=== PATIENT | male | born 1955 | race Caucasian/White ===

== ENCOUNTER 2022-12-24 13:24 | Outpatient (OUT) | payer MEDICARE, OTHER, SELFPAY | END 2022-12-24 13:25 | disposition home or self-care (01) | LOC: PST 13:24 | PROVIDERS: PCP Family Medicine; Visit Provider Internal Medicine Cardiovascular Disease | DX: Z01.818 Encounter for other preprocedural examination (principal); I48.91 Unspecified atrial fibrillation ==

== ENCOUNTER 2022-12-28 11:21 | Day surgery (SDC) | payer MEDICARE, OTHER, SELFPAY ==
[2022-12-28 11:38] VITALS: BP 139/86; PULSE 63; RESP 20; TEMP 36.2; O2SAT 98
[2022-12-28] MEDS: AMOXICILLIN 500 MG CAPSULE 1000 MG PO (11:41)
[2022-12-28 12:49] VITALS: BP 149/80; PULSE 71; RESP 20; O2SAT 98
[2022-12-28 12:57] VITALS: BP 145/80; PULSE 66; O2SAT 98
--- NOTE | 2022-12-28 13:08 | W.PM.PROCNOT ---
Date of procedure: 12/28/22 Pre-op diagnosis: Afib Procedure: LOOP?IMPLANT PROCEDURE NOTE DATE OF PROCEDURE: 12/28/2022 PERFORMING PHYSICIAN: Dr. Octaviano Gutierrez INDICATIONS FOR PROCEDURE: 1. AF surveillance CONSENT: Patient LOCATION: EP Lab PROCEDURAL SEDATION: None FLUOROSCOPY TIME: 0min PREPARATION: Preoperative antibiotics was administered. PROCEDURES PERFORMED: 1.?LOOP?implant PROCEDURE NOTE: Patient was brought to the EP lab in the post absorptive state. A procedural pause was performed verifying the patient, the procedure. Sterile prep and drape were performed over the left precordium and anesthesia with 1% lidocaine was followed by a small incision was made in the 3rd intercostal space near the sternum on the left using the [employer] tool. The?loop?recorder was then injected subcutaneously and noted to have good sensing parameters. Technical details of the device as noted below. The skin was then closed with 3-0 absorbable monofilament suture and glue applied to hold the edges together. Tegaderm was applied to cover the wound. The patient appeared to tolerate the procedure well and was returned to the room in stable condition. No complications were immediately observed. LOOP?details: Device Model: M301 Lux-Dx Serial#: [id number]? Sensing is 0.14mV. IMPRESSION: Successful placement of?LOOP?implant with excellent sensing parameters. RECOMMENDATIONS: 1. Occlusive dressing to be changed after 7 days. 2. Do not wet the incision. Octaviano Gutierrez MD Cardiac Electrophysiology Anesthesia: Local Surgeon: Octaviano Gutierrez Estimated blood loss (mL): 5 Pathology: none sent Condition: stable Disposition: same day
== END 2022-12-28 13:15 | disposition home or self-care (01) ==
PROVIDERS: PCP Family Medicine; Visit Provider Internal Medicine Cardiovascular Disease
PROC: (CPT 33285; principal; 2022-12-28 12:00)
DX: I48.0 Paroxysmal atrial fibrillation (principal); Z79.82 Long term (current) use of aspirin; Z79.899 Other long term (current) drug therapy
CPT/HCPCS: 33285; C1764

== ENCOUNTER 2023-03-29 10:43 | Outpatient (OUT) | payer MEDICARE, OTHER, SELFPAY ==
--- NOTE | 2023-03-29 10:55 | XR_ITS ---
[address] [address] Patient Name: JOSE COLE MRN: [id number] date: 1955 Sex: M Assigned Patient Location: [facility] Current Patient Location: [facility] Accession/Order Number: [id number] Exam Date: 03/29/2023 11:00 Report Date: 03/29/2023 13:06 At the request of: DEON SPRINGER Procedure: XR lumbar spine 2-3V EXAM: XR lumbar spine 2-3V HISTORY: Low Back Derangement Syndrome M53.86 COMPARISON: None. TECHNIQUE: 2 views Findings/impression: Mild S-shaped scoliosis of the thoracolumbar spine. Maintained vertebral body heights. Mild endplate degenerative changes, disc disease and facet arthropathy of L4-S1. No acute fracture or significant subluxation. Scattered calcified atherosclerotic disease of the aorta. Electronically authenticated by: DORINA MEDINA Date: 03/29/2023 13:06
== END 2023-03-29 10:44 | disposition home or self-care (01) ==
PROVIDERS: PCP Family Medicine; Visit Provider Family Medicine
DX: M53.86 Other specified dorsopathies, lumbar region (principal)
CPT/HCPCS: 72100

== ENCOUNTER 2023-04-14 09:41 | Outpatient (OUT) | payer MEDICARE, OTHER, SELFPAY ==
[2023-04-14 10:04] LABS: Basophils Absolute Auto 0.1 10^3/uL (0.0-0.1); Basophils Percent Auto 1.4 % (0.2-2.0); Eosinophils Absolute Auto 0.2 10^3/uL (0.0-0.7); Eosinophils Percent Auto 4.2 % (0.9-7.0); Hematocrit 47.5 % (42.0-54.0); Hemoglobin 15.2 g/dL (14.0-18.0); Immature Granulocytes Abs Auto 0.02 10^3/uL (0.00-0.03); Immature Granulocytes Pct Auto 0.3 % (0.0-0.5); Lymphocytes Absolute Auto 1.3 10^3/uL (1.2-3.8); Mean Corpuscular Hemoglobin 29.8 pg (25.9-34.0); Mean Corpuscular Volume 93.1 fL (80.0-94.0); Mean Platelet Volume 10.2 fL (9.5-13.5); Monocytes Absolute Auto 0.5 10^3/uL (0.3-0.8); Monocytes Percent Auto 8.9 % (1.7-12.0); Neutrophils Absolute Auto 3.6 10^3/uL (1.4-6.5); Neutrophils Percent Auto 62.2 % (43.0-75.0); Platelet Count 219 10^3/uL (150-450); Red Cell Distribution Width 14.5 % (11.0-15.0); White Blood Count 5.8 10^3/uL (4.0-11.0)
[2023-04-14 10:42] LABS: Alanine Aminotransferase 63 U/L (16-63); Albumin Globulin Ratio 1.1; Albumin Level 3.9 g/dL (3.4-5.0); Alkaline Phosphatase 56 U/L (46-116); Anion Gap 11.3; Aspartate Amino Transferase 42 U/L (15-37); Bilirubin Total 1.3 mg/dL (0.2-1.0); Calcium 8.5 mg/dL (8.5-10.1); Carbon Dioxide 28.9 mmol/L (21.0-32.0); Chloride 104 mmol/L (98-107); Chol HDL Ratio 3.5; Cholesterol 135 mg/dL (<=200); Estimated GFR (African America >60 (>=60); Estimated GFR (Non-African Ame 58 (>=60); Globulin 3.4 g/dL; Glucose 106 mg/dL (74-106); HDL Cholesterol 39 mg/dL (40-60); Potassium 4.2 mmol/L (3.5-5.1); Sodium 140 mmol/L (136-145); Total Protein 7.3 g/dL (6.4-8.2); Triglycerides 95 mg/dL (<=150)
== END 2023-04-14 09:42 | disposition home or self-care (01) ==
LOC: LAB 09:42
PROVIDERS: PCP Family Medicine; Visit Provider Nurse Practitioner Family
DX: R06.09 Other forms of dyspnea (principal); E78.2 Mixed hyperlipidemia
CPT/HCPCS: 36415; 80053; 80061; 83880; 85025

== ENCOUNTER 2023-05-03 07:51 | Outpatient (OUT) | payer MEDICARE, OTHER, SELFPAY ==
--- NOTE | 2023-05-03 | PCN_ITS ---
CARDIAC STRESS TEST Requesting Physician: Procedure Date: 05/03/2023 This was a treadmill exercise stress test with myocardial perfusion imaging performed at the [facility] on 05/03/2023. Informed consent was obtained. The patient was attached to electrocardiographic monitoring. Baseline vital signs and ECG were obtained. The patient exercised on a treadmill for 5 minutes and 31 seconds, according to the Brant protocol and reached stage 2 and achieved 7 METS. Cardiolite was injected at peak exercise. Resting heart rate was 75 BPM and maximum heart rate was 130 BPM, representing 86% of maximal predicted heart rate. Resting blood pressure was 108/76 with maximum blood pressure of 160/98. Resting ECG showed evidence of normal sinus rhythm with non-specific T-wave abnormalities. ECG during exercise showed evidence of borderline ST segment depressions in leads 2, 3 and AVF, with T-wave inversions. There was evidence of occasional PVCs seen, and two runs of non-sustained ventricular tachycardia were seen, consisting of 4 beats each. Post exercise, the ECG showed evidence of sinus rhythm and was compatible to baseline. The patient developed dyspnea with exertion but no chest pain. SUMMARY OF FINDINGS: 1. Abnormal treadmill exercise stress test due to presence of non-sustained ventricular tachycardia with exercise. Borderline ischemic ECG changes were seen in leads 2, 3 and AVF. 2. 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 3. Myocardial perfusion images will be reported separately. MTDD
--- NOTE | 2023-05-03 07:45 | NM_ITS ---
Patient Name: JOSE COLE MR#: [id number] : 1955 Exam Date: 05/03/2023 Ordering Doctor: JOSE GUADALUPE MCCALL CNP RADIOLOGY REPORT PROCEDURE: NM PAUL PERF SPECT REST STR COMPARISON: None. INDICATIONS: CORONARY ARTERY DISEASE, DYSPNEA TECHNIQUE: Exam Description: Stress/Rest one day protocol gated SPECT Rest Imagin.6 mCi Tc-99m Cardiolite IV on 05/03/2023 Stress Imaging 30.5 mCi Tc-99m Cardiolite IV on 05/03/2023 Exercise Protocol: Brant Heart Rate (bpm): Rest: 75 Max: 130 PMHR: 86 Blood Pressure: Rest: 108/76 Max: 160/98 Exercise Time: Minutes: 5 Seconds: 31 Stage Reached: Stage: 2 Mets 7.0 Symptoms: Rest and peak stress ECG findings were abnormal and the exercise portion of the study was abnormal per attending physician Dr. Bright due toEKG changes. For more details please see separate cardiac stress test report. FINDINGS: QUALITY OF STUDY: Good. PERFUSION DEFECT: None. LOCATION: N/ABasal anterior. Basal anteroseptal. Mid-anterior. Mid-anteroseptal. Apical anterior. [place]. SIZE: Large (5 or more segments). SEVERITY: Moderate. TYPE: Reversible. WALL MOTION: Normal. LV SIZE: Normal. 76 mL. TID / TCD: None; 1.0 LVEF: Abnormal. Calculated EF 51%. SUMMARY: Myocardial perfusion imaging study has ABNORMAL findings. CONCLUSION: 1. Small fixed defect apical anterior and apex segments 2. Moderate sized area of moderately decreased uptake on stress images in the anterior and anterior septal wall, LAD distribution significant redistribution suggesting reversible ischemia 3. Abnormal exercise test secondary to EKG changes 4. Further evaluation is recommended Dictated by: Ever Neff MD on 05/04/2023 at 13:51 Approved by: Ever Neff MD on 05/04/2023 at 14:02
--- NOTE | 2023-05-03 09:13 | CA_ITS ---
Patient Name: JOSE COLE MR#: [id number] : 1955 Exam Date: 05/03/2023 Ordering Doctor: JOSE GUADALUPE MCCALL CNP ECHOCARDIOGRAM REPORT PROCEDURE: CA ECHO DOPPLER COMPLETE INDICATIONS: MARTINEZ, CAD COMPARISON: None. DESCRIPTION: COMPLETE ECHOCARDIOGRAM Real-time transthoracic echocardiography with 2D, M-mode, spectral and color flow Doppler performed. QUALITY: Technical quality was good. LEFT VENTRICLE: Normal chamber size. Normal left ventricular wall thickness. LV EF: Global left ventricular systolic function is low normal limits; visually estimated ejection fraction is 50 to 55%. Abnormal septal motion; may be related to underlying bundle branch block. DIASTOLIC: Normal diastolic function. ATRIAL SEPTUM: Inadequately seen. LEFT ATRIUM: Normal chamber size. RIGHT ATRIUM: Normal chamber size. RIGHT VENTRICLE: Normal chamber size. Normal systolic function. TRICUSPID VALVE: Normal mobility and thickness. No stenosis with trivial regurgitation. No evidence of pulmonary hypertension. RVSP 19mmHg MITRAL VALVE: Normal mobility and thickness. No evidence of mitral valve stenosis. There is no mitral annular calcification. Trivial mitral regurgitation. AORTIC VALVE: Normal trileaflet appearance. Thickened aortic valve. Normal leaflet mobility. No evidence of aortic valve stenosis. Trivial aortic regurgitation. AORTIC ROOT: Normal diameter and appearance. PULMONIC VALVE: Normal thickness and mobility. No stenosis. Trivial regurgitation. PERICARDIUM: Small pericardial effusion. IVC: Collapses with inspirations. Mild dilatation measuring 2.3cm PLEURA: CONCLUSION: 1. Global left ventricular systolic function is low normal limits; visually estimated ejection fraction is 50 to 55% 2. Normal right ventricular size and systolic function 3. Normal diastolic function 4. The left atrium is normal in size 5. No significant valvular abnormalities 6. A small circumferential pericardial effusion is seen Adult Echocardiography Procedure Report Left Ventricle LVEDD (3.7 - 5.6 cm): 4.34 cm LVESD (2.2 - 4.0 cm): 3.19 cm LVIVS thickness (0.6 - 1.2 cm): 0.93 cm LVPW thickness (0.5 - 1.0 cm): 1.08 cm e': 0.07 m/s E - e': 8.61 LVOT Max Gradient: 1.42 mm[Hg] LVOT Area (cm2): 0.60 m/s Peak Velocity (LVOT): 0.60 m/s Mean Velocity (LVOT): 0.41 m/s LVOT Diameter 2.02 cm Left Ventricular Ejection Fraction: 53.79 % Left Atrium LA Volume Index (2D A2C): 34.02 ml/m2 Left Atrium Systolic Dimension: 4.76 cm Mitral Valve MV E to A Ratio: 1.49 Mitral Valve A-Wave Peak Velocity: 0.41 m/s Mitral Valve E-Wave Peak Velocity: 0.62 m/s Right Ventricle RV Internal Diastolic Dimension: 3.89 cm Aorta AO Root Diam: 3.51 cm Ascending Ao Diam: 3.29 cm Aortic Valve AoV Area (Peak Rashaun): 1.91 cm2, 1.91 cm2 AoV Area (VTI): 2.01 cm2, 2.01 cm2 Peak Velocity(Antegrade Flow): 1.00 m/s Peak Gradient(Antegrade Flow): 3.97 mm[Hg] Mean Velocity(Antegrade Flow): 0.70 m/s Mean Gradient(Antegrade Flow): 2.25 mm[Hg] Velocity Time Integral: 20.61 cm Tricuspid Valve Peak Velocity (Regurgitant Flow): 1.67 m/s, 1.55 m/s Pulmonic Valve Mean Gradient: 2.53 mm[Hg], 0.96 mm[Hg] Mean Velocity: 0.78 m/s, 0.44 m/s Peak Velocity: 0.87 m/s Peak Gradient: 4.20 mm[Hg], 2.05 mm[Hg] Right Atrium Right Atrium Systolic Pressure: 57.48 ml, 57.48 ml Dictated by: Ivan Morton M.D. on 05/04/2023 at 13:48 Approved by: Ivan Morton M.D. on 05/04/2023 at 14:19
== END 2023-05-03 07:52 | disposition home or self-care (01) ==
LOC: NM 07:51
PROVIDERS: PCP Family Medicine; Visit Provider Nurse Practitioner Family
DX: I25.10 Atherosclerotic heart disease of native coronary artery without angina pectoris (principal); R06.09 Other forms of dyspnea
CPT/HCPCS: 78452; 93017; 93306; 93356; A9500

== ENCOUNTER 2023-06-13 15:41 | Outpatient (OUT) | payer MEDICARE, OTHER, SELFPAY ==
--- OUTSIDE RECORDS SUMMARY | 2023-06-13 15:44 | XMS_ITS | CCD ---
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 Name Role Phone JUSTIN MOHAMAD Admitting Unavailable HOY ., DR CHAVARRIA Primary Care Unavailable ALGHOTHANI, MOHAMAD Attending Unavailable ALGHOKATHERINEANI, MOHKENISHA Consulting Unavailable HOY ., DR CHAVARRIA Consulting Unavailable HOY ., DR CHAVARRIA Primary Care Unavailable HOY ., DR CHAVARRIA Admitting Unavailable HOY ., DR CHAVARRIA Attending Unavailable ALGHOTHANI, MOHAMASuni Admitting Unavailable Renée Garsia Consulting Unavailable HOY ., DR CHAVARRIA Primary Care Unavailable ALGHOTHANI, CLARISSAAMASuni Attending Unavailable ALGHOTHANI, MOHAMAD Consulting Unavailable HOY ., DR CHAVARRIA Primary Care Unavailable HOY ., DR CHAVARRIA Admitting Unavailable HOY ., DR CHAVARRIA Attending Unavailable HOY ., DR CHAVARRIA Consulting Unavailable ORONO, DR NARCISO Walker Consulting Unavailable HOY ., DR CHAVARRIA Primary Care Unavailable HOY ., DR CHAVARRIA Admitting Unavailable HOY ., DR CHAVARRIA Attending Unavailable HOY ., DR CHAVARRIA Consulting Unavailable MANUELA, MAURA Referring Unavailable JOSE GUADALUPE MCCALL Attending Unavailable JENNIFER TEJEDA Attending Unavailable OCTAVIANO GUTIERREZ Attending Unavailable ELDERUKABRISSA PATIÑO Attending Unavailable BRISSA KANG Referring Unavailable BRISSA KANG Admitting Unavailable ELDERUKABRISSA PATIÑO Attending Unavailable MAURA DAN Attending Unavailable Allergies Allergy Classification Reported Allergen(s) Allergy Type Date of Onset Reaction(s) Facility (1 source) Amino Acids Drug Allergy 6 [facility] Repository (1 source) Hmg-Coa Reductase Inhibitors (Statins); Translations: [[id number]-KCV-FTN REDUCTASE INHIBITORS] Propensity to adverse reactions to drug (disorder) 2 [facility] Repository Problems Active Problems Problem Classification Problem Date Documented Date Episodic/Chronic Cardiac dysrhythmias (4 sources) Unspecified atrial fibrillation; Translations: [Cardiac arrhythmia, unspecified] Onset: 04-24-2022 Chronic Complications of surgical procedures or medical care (3 sources) Complication of other artery following a procedure, not elsewhere classified, initial encounter; Translations: [Other postprocedural complications and disorders of the circulatory system, not elsewhere classified] Onset: 04-24-2022 Episodic Conduction disorders (2 sources) Other atrioventricular block; Translations: [Other atrioventricular block] Onset: 08-23-2022 Chronic Congestive heart failure; nonhypertensive (3 sources) Unspecified diastolic (congestive) heart failure; Translations: [Acute on chronic diastolic (congestive) heart failure] Onset: 04-07-2022 Chronic Coronary atherosclerosis and other heart disease (2 sources) Atherosclerotic heart disease of [place] coronary artery without angina pectoris; Translations: [Atherosclerotic heart disease of [place] coronary artery without angina pectoris] Onset: 05-11-2023 Chronic Diabetes mellitus without complication (4 sources) Type 2 diabetes mellitus without complications; Translations: [TYPE 2 DM WITHOUT COMPLICATIONS] Onset: 06-28-2022 Chronic Disorders of lipid metabolism (4 sources) Pure hypercholesterolemia, unspecified; Translations: [Hyperlipidemia, unspecified] Onset: 04-07-2022 Chronic Essential hypertension (2 sources) Essential (primary) hypertension; Translations: [Essential (primary) hypertension] Onset: 04-20-2022 Chronic Hypertension with complications and secondary hypertension (1 source) Hypertensive heart disease with heart failure; Translations: [HTN HEART DISEASE W/HEART FAIL] Onset: 04-07-2022 Chronic Other liver diseases (1 source) Abnormal levels of other serum enzymes; Translations: [ABNORMAL LEVELS OTHER SERUM ENZYMES] Onset: 07-02-2022 Episodic Other lower respiratory disease (3 sources) Other forms of dyspnea; Translations: [OTHER FORMS OF DYSPNEA] Onset: 04-17-2022 Episodic Other screening for suspected conditions (not mental disorders or infectious disease) (4 sources) Abnormal results of liver function studies; Translations: [Encounter for screening for malignant neoplasm of prostate] Onset: 04-07-2022 Episodic Past or Other Problems Problem Classification Problem Date Documented Da te Episodic/Chronic Coronary atherosclerosis and other heart disease (6 sources) Presence of aortocoronary bypass graft; Translations: [PRESENCE AORTOCORONARY BYPASS GRAFT] Onset: 06-03-2022 Episodic Diabetes mellitus without complication (1 source) Other abnormal glucose; Translations: [OTHER ABNORMAL GLUCOSE] Onset: 04-07-2022 Episodic Nonspecific chest pain (4 sources) Chest pain, unspecified; Translations: [CHEST PAIN UNSPECIFIED] Onset: 04-14-2022 Episodic Other nervous system disorders (4 sources) Other acute postprocedural pain; Translations: [OTHER ACUTE POSTPROCEDURAL PAIN] Onset: 05-19-2022 Episodic Other nutritional; endocrine; and metabolic disorders (1 source) Overweight; Translations: [OVERWEIGHT] Onset: 04-17-2022 Episodic Results Test Name Value Interpretation Reference Range Facility [facility] 05-13-2023 Chief Complaint Patient presents with Shortness of Breath Coronary Artery Disease Geo Todd is a 67 y.o. male here for follow-up. HPI PMHx: GERD, Pre-Diabetes, HTN, HLD, and CAD s/p coronary artery bypass grafting x 3, ROBERSON-LAD, SVG-OM, SVG-PDA with post op Afib. He has started having worsening SOB over the last couple of months. He feels SOB with minimal exertion. He hasn't noticed any leg swelling. He denies CP, orthopnea, PND, palpitations, dizziness/LH, syncope. His weight is up ~14#. He thinks it is related to food intake. His PCP recently started him on diclofenac and Zanaflex for his back pain. Patient Active Problem List Diagnosis Cardiovascular stress test abnormal Hypertension Mixed hyperlipidemia Other chest pain Triple vessel coronary artery disease Obesity GERD (gastroesophageal reflux disease) Respiratory insufficiency Postoperative atrial fibrillation (CMS/HCC) Adenomatous polyp of colon Anticoagulated on Coumadin Benign neoplasm of colon Bilateral arm weakness Cholecystolithiasis DVT (deep venous thrombosis) (CMS/HCC) Family history of malignant neoplasm of colon History of colonic polyps History of deep venous thrombosis Hyperplastic polyp of intestine Left foot drop Leg pain Occult blood in stools Medical History Past Medical History: Diagnosis Date Cardiovascular stress test abnormal 04/16/2022 GERD (gastroesophageal reflux disease) Hypertension Mixed hyperlipidemia 04/16/2022 Obesity 04/20/2022 Primary hypertension 04/16/2022 Sleep apnea Triple vessel coronary artery disease 04/20/2022 Family History Family History Problem Relation Name Age of Onset Heart attack Maternal Grandfather Heart attack Paternal Grandfather Social History Tobacco Use Smoking status: Never Smokeless tobacco: Never Substance Use Topics Alcohol use: Yes Comment: occasional Drug use: Not Currently Allergies Allergen Reactions Ckadera-Hgz-Zcn Reductase Inhibitors ROS Cardiovascular: Positive for dyspnea on exertion. Musculoskeletal: Positive for back pain and joint pain. Gastrointestinal: Positive for heartburn. Neurological: Positive for light-headedness. All other systems reviewed and are negative. OBJECTIVE Visit Vitals BP 142/80 (BP Location: Right arm, Patient Position: Sitting) Pulse 65 Ht 1.702 m (5' 7 ) Wt 111 kg (245 lb) SpO2 97% BMI 38.37 kg/m??? Smoking Status Never BSA 2.29 m??? Medications: Current Outpatient Medications: aspirin 81 mg chewable tablet, Chew 1 tablet (81 mg) in the morning., Disp: 90 tablet, Rfl: 3 omeprazole (PriLOSEC) [address] capsule, Take 40 mg by mouth in the morning., Disp: , Rfl: diclofenac (Voltaren) 75 mg EC tablet, Take 75 mg by mouth in the morning and at bedtime., Disp: , Rfl: ezetimibe (Zetia) 10 mg tablet, Take 1 tablet (10 mg) by mouth in the morning., Disp: 90 tablet, Rfl: 3 losartan (Cozaar) 50 mg tablet, Take 1 tablet (50 mg) by mouth in the morning., Disp: 90 tablet, Rfl: 3 metoprolol tartrate (Lopressor) 25 mg tablet, Take 0.5 tablets (12.5 mg) by mouth in the morning and at bedtime., Disp: 90 tablet, Rfl: 3 pravastatin (Pravachol) 20 mg tablet, Take 1 tablet (20 mg) by mouth at bedtime., Disp: 90 tablet, Rfl: 3 tiZANidine (Zanaflex) 4 mg tablet, Take 8 mg by mouth at bedtime., Disp: , Rfl: Physical Exam Constitutional: Appearance: Normal appearance. He is obese. HENT: Head: Normocephalic and atraumatic. Right Ear: External ear normal. Left Ear: External ear normal. Eyes: Extraocular Movements: Extraocular movements intact. Pupils: Pupils are equal, round, and reactive to light. Neck: Vascular: No carotid bruit. Cardiovascular: Rate and Rhythm: Normal rate and regular rhythm. Pulses: Normal pulses. Heart sounds: Normal heart sounds. Pulmonary: Effort: Pulmonary effort is normal. Breath sounds: Normal breath sounds. Abdominal: General: Bowel sounds are normal. Palpations: Abdomen is soft. Musculoskeletal: General: Normal range of motion. Cervical back: Neck supple. Right lower leg: Edema present. Left lower leg: Edema present. Comments: +1 BLE ankle edema Skin: General: Skin is warm and dry. Neurological: General: No focal deficit present. Mental Status: He is alert and oriented to person, place, and time. Psychiatric: Mood and Affect: Mood normal. Behavior: Behavior normal. Thought Content: Thought content normal. Judgment: Judgment normal. Labs: Admission on 07/30/2022, Discharged on 07/30/2022 Component Date Value Ref Range Status Sodium 07/30/2022 138 136 - 145 mmol/L Final Potassium 07/30/2022 4.5 3.5 - 5.1 mmol/L Final Chloride 07/30/2022 107 98 - 107 mmol/L Final CO2 07/30/2022 23 21 - 31 mmol/L Final BUN 07/30/2022 19 7 - 25 mg/dL Final Creatinine 07/30/2022 1.05 0.70 - 1.30 mg/dL Final Glucose 07/30/2022 88 70 - 100 mg/dL Final Calcium 07/30/2022 9.4 8.6 - 10.3 mg/ (more content not included)... Normal [facility] NURSNOTEon 05-13-2023 NURSNOTE RN educated pt on d/ c instructions. RN encouraged pt to voice any questions or concerns. Pt verbalizes no questions or concerns at this time. Pt was wheeled off of unit with all of belongings. Normal [facility] Orders Onlyon 05-11-2023 Orders Only [id number] Geo Todd 1955 M Date Provider Department Center 05/11/2023 Gerry8-ULISES ÁLVAREZ EFRAÍN Delgado [facility] Family History Problem Relation Age of Onset Heart attack Maternal Grandfather Heart attack Paternal Grandfather Family Status - Relation Status Age at Maternal Grandfather Paternal Grandfather [facility] 36on 05-05-2023 36 I called and spoke t o patient regarding his ECHO results. He has low normal EF at 50-55%, normal right sided pressures, no significant valvular abnormalities, small pericardial effusion. We had started him on lasix 20mg daily. He reports he has lost a few lbs and his breathing is feeling better and his ankle swelling is better. Will have him cut down his lasix to as needed. If he feels like he needs to start the lasix again, he is to let us know so we can obtain a follow-up BMP. He states understanding. [facility] Telephoneon 05-05-2023 Telephone [id number] Geo Todd 1955 [facility] Provider Department Okay 05/05/2023 JOSE GUADALUPE CARRERA Family History Problem Relation Age of Onset Heart attack Maternal Grandfather Heart attack Paternal Grandfather Family Status - Relation Status Age at Maternal Grandfather Paternal Grandfather [facility] 36on 04-20-2023 36 Please make sure he is also scheduled for his stress test and ECHO. Thanks! [facility] 36on 04-19-2023 36 Please let him know his labs showed mildly elevated BNP which could indicate he is carrying extra fluid. Recommend we start him on lasix 20mg daily. Please follow-up with him with a phone call in 2 weeks to see how his breathing, weight, and leg swelling are doing. If he is doing better we will plan for follow-up lab work. His cholesterol levels are pretty good. His LDL or bad cholesterol is at 77. Recommend heart healthy diet and routine exercise to try too get this below 70. Thanks, Shasha [facility] Telephoneon 04-19-2023 Telephone [id number] Geo Todd 1955 M Date Provider Department Okay 04/19/2023 JOSE GUADALUPE CARRERA Family History Problem Relation Age of Onset Heart attack Maternal Grandfather Heart attack Paternal Grandfather Family Status - Relation Status Age at Maternal Grandfather Paternal Grandfather [facility] 37on 04-12-2023 37 *Get stress test and ECHO done *Have labs done, fasting *Ask PCP to change pain medication to not be an NSAID [facility] Office Visiton 04-12-2023 Follow-up visit [id number] Geo Todd Markos 1955 M Date Provider Department Center 04/12/2023 Jo Ann-JOSE GUADALUPE MCCALL [facility] Family History Problem Relation Age of Onset Heart attack Maternal Grandfather Heart attack Paternal Grandfather Family Status - Relation Status Age at Maternal Grandfather Paternal Grandfather Level of Service:10698 MO OFFICE/OUTPATIENT ESTABLISHED MOD MDM 30-39 MIN Reason for Visit and Comments: Shortness of Breath [375028] Coronary Artery Disease [187] Normal [facility] Office Visiton 01-04-2023 Follow-up visit [id number] Geo Todd Markos 1955 M Date Provider Department Center 01/04/2023 Lacy-JENNIFER TEJEDA [facility] Family History Problem Relation Age of Onset Heart attack Maternal Grandfather Heart attack Paternal Grandfather Family Status - Relation Status Age at Maternal Grandfather Paternal Grandfather Level of Service:86408 MO OFFICE/OUTPATIENT ESTABLISHED MOD MDM 30-39 MIN Normal [facility] Orders Onlyon 10-21-2022 Orders Only [id number] Geo Todd Markos 1955 M Date Provider Department Center 10/21/2022 Ximena5NAOMI COWAN [facility] Family History Problem Relation Age of Onset Heart attack Maternal Grandfather Heart attack Paternal Grandfather Family Status - Relation Status Age at Maternal Grandfather Paternal Grandfather Normal [facility] Office Visiton 10-19-2022 Follow-up visit [id number] PeytonGeo Burrows 1955 M Date Provider Department Center 10/19/2022 Jad-OCTAVIANO GUTIERREZ [facility] Family History Problem Relation Age of Onset Heart attack Maternal Grandfather Heart attack Paternal Grandfather Family Status - Relation Status Age at Maternal Grandfather Paternal Grandfather Level of Service:73556 MO OFFICE/OUTPATIENT ESTABLISHED MOD MDM 30-39 MIN Normal [facility] Office Visiton 08-23-2022 Follow-up visit [id number] PeytonGeo Burrows 1955 M Date Provider Department Center 08/23/2022 BRISSA ESCOBAR [facility] Family History Problem Relation Age of Onset Heart attack Maternal Grandfather Heart attack Paternal Grandfather Family Status - Relation Status Age at Maternal Grandfather Paternal Grandfather Level of Service:96217 MO OFFICE/OUTPATIENT ESTABLISHED MOD MDM 30-39 MIN Normal [facility] Documentationon 08-02-2022 Documentation [id number] Geo Todd 1955 M Date Provider Department Center 08/02/2022 [facility]AV[facility]O [facility] [place] Family History Problem Relation Age of Onset Heart attack Maternal Grandfather Heart attack Paternal Grandfather Family Status - Relation Status Age at Maternal Grandfather Paternal Grandfather Normal [facility] BASIC METABOLIC PANELon 07-14 Anion gap [Moles/Vol] 13 mmol/L Normal - [facility] Comment on above: Performed By: #### L [id number] ####[facility] ([facility])[address] [place] [address] Calcium [Mass/Vol] 9.4 mg/dL Normal 8.6-10.3 [facility] Comment on above: Performed By: #### L [id number] ####[facility] ([facility])[address] [place] [address] Chloride [Moles/Vol] 107 mmol/L Normal 98-107 [facility] Comment on above: Performed By: #### L [id number] ####[facility] ([facility])[address] [place] [address] CO2 [Moles/Vol] 23 mmol/L Normal 21-31 [facility] Comment on above: Performed By: #### L [id number] ####[facility] ([facility])[address] [place] [address] Creatinine [Mass/Vol] 1.05 mg/dL Normal 0.70-1.30 [facility] Comment on above: Performed By: #### L [id number] ####[facility] ([facility])[address] [place] [address] GLOMERULAR FILTRATION RATE ML/MIN/1.73 SQ M.PREDICTED 76.8 mL/min/1.73m*2 Normal >60.0 [facility] Comment on above: Result Comment: The [facility]???s estimated glomerular filtration rate (eGFR) will no longer include consideration of race in its calculation. The National Kid[employer] Foundation???s eGFR Task Force developed new recommendations for the estimation of the glomerular filtration rate in the [place] They recommend immediate implementation of the new equation refit without the race variable in all laboratories because the calculation does not include race. In addition to not including race in the calculation and reporting, it included diversity in its development, and has acceptable performance characteristics and potential consequences that do not disproportionately affect any one group of individuals. Performed By: #### L [id number] ####[facility] ([facility])[address] [place] [address] Glucose [Mass/Vol] 88 mg/dL Normal 70-100 [facility] Comment on above: Performed By: #### L [id number] ####[facility] ([facility])[address] [place] [address] Potassium [Moles/Vol] 4.5 mmol/L Normal 3.5-5.1 [facility] Comment on above: Performed By: #### L [id number] ####[facility] ([facility])[address] [place] [address] Sodium [Moles/Vol] 138 mmol/L Normal 136-145 [facility] Comment on above: Performed By: #### L [id number] ####[facility] ([facility])[address] [place] [address] Urea nitrogen [Mass/Vol] 19 mg/dL Normal 7-25 [facility] Comment on above: Performed By: #### L [id number] ####[facility] ([facility])[address] [place] [address] UREA NITROGEN/CREATININE (MASS RATIO) IN SER/PLAS 18.1 Normal [facility] Comment on above: Performed By: #### L [id number] ####[facility] ([facility])[address] [place] [address] CBC WITH AUTO DIFFERENTIALon 07-30-2022 Basophils (Bld) [#/Vol] 0.08 10*3/uL Normal 0.00-0.20 [facility] Comment on above: Performed By: #### L [id number] ####[facility] ([facility])[address] [place] [address] Basophils/100 WBC (Bld) 1.1 % High 0.0-1.0 [facility] Comment on above: Performed By: #### L [id number] ####[facility] ([facility])[address] [place] [address] Eosinophils (Bld) [#/Vol] 0.22 10*3/uL Normal 0.00-0.50 [facility] Comment on above: Performed By: #### L [id number] ####[facility] ([facility])[address] [place] [address] Eosinophils/100 WBC (Bld) 2.9 % Normal 0.0-6.0 [facility] Comment on above: Performed By: #### L [id number] ####[facility] ([facility])[address] [place] [address] Erythrocyte distribution width (RBC) [Ratio] 13.2 % Normal 11.5-15.0 [facility] Comment on above: Performed By: #### L [id number] ####[facility] ([facility])[address] [place] [address] ERYTHROCYTE MEAN CORPUSCULAR HEMOGLOBIN CONCENTRATION (G/DL) BY AUTOMATED 33.3 g/dL Normal 32.0-35.0 [facility] Comment on above: Performed By: #### L [id number] ####[facility] ([facility])[address] [place] [address] Hematocrit (Bld) [Volume fraction] 46.5 % Normal 39.0-55.0 [facility] Comment on above: Performed By: #### L [id number] ####[facility] ([facility])[address] [place] [address] Hemoglobin (Bld) [Mass/Vol] 15.5 g/dL Normal 13.0-17.0 [facility] Comment on above: Performed By: #### L [id number] ####[facility] ([facility] [place] [address] Immature granulocytes (Bld) [#/Vol] 0.03 10*3/uL Normal 0.00-0.20 [facility] Comment on above: Performed By: #### L [id number] ####[facility] ([facility])[address] [place] [address] Immature granulocytes/100 WBC (Bld) 0.4 % Normal 0.0-1.0 [facility] Comment on above: Performed By: #### L [id number] ####[facility] ([facility])[address] [place] [address] Lymphocytes (Bld) [#/Vol] 2.31 10*3/uL Normal 1.20-4.00 [facility] Comment on above: Performed By: #### L [id number] ####[facility] ([facility])[address] [place] [address] Lymphocytes/100 WBC (Bld) 30.9 % Normal 20.0-45.0 [facility] Comment on above: Performed By: #### L [id number] ####[facility] ([facility])[address] [place] [address] MCH (RBC) [Entitic mass] 30.4 pg Normal 27.0-33.0 [facility] Comment on above: Performed By: #### L [id number] ####[facility] ([facility])[address] [place] [address] MCV (RBC) [Entitic vol] 91.2 fL Normal 82.0-98.0 [facility] Comment on above: Performed By: #### L [id number] ####[facility] ([facility])[address] [place] [address] Monocytes (Bld) [#/Vol] 0.61 10*3/uL Normal 0.10-1.00 [facility] Comment on above: Performed By: #### L [id number] ####[facility] ([facility])[address] [place] [address] Monocytes/100 WBC (Bld) 8.2 % Normal 5.0-12.0 [facility] Comment on above: Performed By: #### L [id number] ####[facility] ([facility])[address] [place] [address] Neutrophils (Bld) [#/Vol] 4.23 10*3/uL Normal 1.60-7.60 [facility] Comment on above: Performed By: #### L [id number] ####[facility] ([facility])[address] [place] [address] Neutrophils/100 WBC (Bld) 56.5 % Normal 40.0-72.0 [facility] Comment on above: Performed By: #### L [id number] ####[facility] ([facility])[address] [place] [address] NRBC (PER 100 WBCS) BY AUTOMATED COUNT 0.0 % Normal 0.0-0.0 [facility] Comment on above: Performed By: #### L [id number] ####[facility] ([facility])[address] [place] [address] PLATELETS (10*3/UL) IN BLOOD AUTOMATED COUNT 226 10*3/uL Normal 150-400 [facility] Comment on above: Performed By: #### L [id number] ####[facility] ([facility])[address] [place], [place] [address] RBC (Bld) [#/Vol] 5.10 10*6/uL Normal 4.20-5.70 [facility] Comment on above: Performed By: #### L [id number] ####[facility] ([facility])[address] [address] WBC (Bld) [#/Vol] 7.48 10*3/uL Normal 4.00-10.60 [facility] Comment on above: Performed By: #### L [id number] ####[facility] ([facility])[address] [place] [address] CONSULTon 07-30-2022 CONSULT [place] Electrophysiology Consult Note Reason for visit: Bradycardia with AV block on event monitor HPI: Geo Todd is a 67 y.o. year old with past medical history of GERD, Pre-Diabetes, HTN, HLD, and CAD s/p coronary artery bypass grafting x 3, ROBERSON-LAD, SVG-OM, SVG-PDA with post op Afib. Who was offered a 30d event monbitor for AF surveillence. This revealed episode of AV block of non conduced atrial beats which lasted for 2seconds. Pt denies any symptoms. Pt states he has been on the event monitor for 2.5 weeks. Pt states he developed A-fib after the surgery and is on DOAc. Pt has been at rehab prior to this this AM. No issues reported otherwise. Event monitor strip on 07/30/22 11am AV block noted. PMH: Past Medical History: Diagnosis Date Cardiovascular stress test abnormal 04/16/2022 GERD (gastroesophageal reflux disease) Hypertension Mixed hyperlipidemia 04/16/2022 Obesity 04/20/2022 Primary hypertension 04/16/2022 Sleep apnea Triple vessel coronary artery disease 04/20/2022 PSH: Past Surgical History: Procedure Laterality Date APPENDECTOMY CHOLECYSTECTOMY LAUREN SH: Social Determinants of Health Tobacco Use: Low Risk Smoking Tobacco Use: Never Smokeless Tobacco Use: Never Passive Exposure: Not on file Alcohol Use: Not on file Financial Resource Strain: Not on file Food Insecurity: Not on file Transportation Needs: Not on file Physical Activity: Not on file Stress: Not on file Social Connections: Not on file Intimate Partner Violence: Not on file Depression: Not on file Housing Stability: Not on file Allergies: Allergies Allergen Reactions Ibvhymg-Bpf-Wrn Reductase Inhibitors Weight: @WEIGHT@ Visit Vitals BP 124/87 Pulse 64 Temp 36.7 ???C (98 ???F) (Oral) Resp 13 Ht 1.702 m (5' 7 ) Wt 101 kg (222 lb) SpO2 98% BMI 34.77 kg/m??? Smoking Status Never BSA 2.19 m??? Meds: No current facility-administered medications on file prior to encounter. Current Outpatient Medications on File Prior to Encounter Medication Sig Dispense Refill apixaban (Eliquis) 5 mg tablet Take 1 tablet (5 mg) by mouth in the morning and at bedtime for 198 doses. 60 tablet 1 aspirin 81 mg EC tablet Take 162 mg by mouth in the morning. ezetimibe (Zetia) 10 mg tablet Take 1 tablet (10 mg) by mouth in the morning. 90 tablet 3 losartan (Cozaar) 25 mg tablet Take 1 tablet (25 mg) by mouth in the morning. 30 tablet 1 metoprolol tartrate (Lopressor) 25 mg tablet Take 0.5 tablets (12.5 mg) by mouth in the morning and at bedtime. 90 tablet 3 omeprazole (PriLOSEC) [address] capsule Take 40 mg by mouth in the morning. pravastatin (Pravachol) 20 mg tablet Take 1 tablet (20 mg) by mouth at bedtime. 90 tablet 3 ROS: Cardio Basic Cardiovascular Symptoms: no lightheadedness, no leg edema, no syncope, no orthopnea, no PND, no claudication, Constitutional Constitutional: no fever, no night sweats, no significant weight gain, no significant weight loss, no exercise intolerance Eyes Eyes: no dry eyes, no irritation, no vision change ENMT Ears: no difficulty hearing, no ear pain Nose: no frequent nosebleeds, Mouth/Throat: no sore throat, no bleeding gums, no snoring, no dry mouth, no mouth ulcers, no oral abnormalities, no teeth problems Respiratory Respiratory: no cough, no wheezing, no coughing up blood, no sleep apnea Musculoskeletal Musculoskeletal: no muscle aches, no muscle weakness, joint pain+, no back pain, no swelling in the extremities Integumentary Skin no rash, no ulcer, no varicosities, no discoloration, no pruritus Neurologic Neurologic: no loss of consciousness, no weakness, no numbness, no seizures, no dizziness, no headaches Psychiatric Psych: no depression, feeling safe in relationship, no alcohol abuse, Hematologic/Lymphatic Hematologic/Lymphatic no swollen glands, no bruising Physical Exam: Constitutional General Appearance: well-nourished, well-developed, appears stated age Level of Distress: comfortable Psychiatric Mental Status: alert, normal affect Orientation: oriented to time, place, and person Insight: good judgement Eyes Lids and Conjunctivae: non-injected, no xanthelasma ENMT Ears: no lesions on external ear Nose: no lesions on external nose Oropharynx: no cyanosis, no pallor Neck Neck: supple, trachea midline Carotid Arteries: bilateral normal upstroke, no bruits Jugular Veins: normal jugular venous pressure Thyroid: not enlarged Lungs Respiratory Effort: unlabored Chest Exam: normal curvature, no thoracic deformity Auscultation: clear, no wheezing, no rales, no rhonchi Cardiovascular Rate And Rhythm: regular, surgical scar. Heart Sounds: normal S1, normal s2, no gallop Systolic Murmur: not heard Diastolic Murmur: not heard Extremities: no cyanosis, no edema, no peripheral signs of emboli Peripheral Pulses Radial Pulse: normal Abdomen Inspection and Palpation (more content not included)... Normal [facility] EDNURSon 07-30-2022 EDNURS Pt arrives with to triage, pt states that today they received a call from their cardiology office to come be seen in the ED for a third degree heart blood. Pt is currently wearing a halter monitor. Pt states that in April 2022 he had a triple bypass done. Pt is still on eliquis. Pt denies CP, SOB, dizziness. Normal [facility] EDPROVon 07-30-2022 EDPROV HPI Chief Complaint Patient presents with ??? Irregular Heart Beat Initial evaluation completed by Dr. Dan at 17:21. Geo Todd is a 67 y.o. male that presents to the ED with a chief complaint of irregular heart beat. Pt states he wears a Halter monitor and his cardiology office called to tell him he was in 3rd degree heart block. Pt denies any symptoms. Pt states he has been on the Halter monitor for 2.5 weeks. Pt states he has a history of triple vessel bypass surgery in April and takes Eliquis. Pt states he developed A-fib after the surgery. Pt denies currently taking any medications for A-fib or history of an ablation. 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 History provided by: Patient Chandan Coma Scale Score: 15 Patient History Past Medical History: Diagnosis Date ??? Cardiovascular stress test abnormal 04/16/2022 ??? GERD (gastroesophageal reflux disease) ??? Hypertension ??? Mixed hyperlipidemia 04/16/2022 ??? Obesity 04/20/2022 ??? Primary hypertension 04/16/2022 ??? Sleep apnea ??? 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 APPENDECTOMY ??? CHOLECYSTECTOMY ??? LASIK Family History Problem Relation Name Age of Onset ??? Heart attack Maternal Grandfather ??? Heart attack Paternal Grandfather Social History Tobacco Use ??? Smoking status: Never ??? Smokeless tobacco: Never Substance Use Topics ??? Alcohol use: Yes Comment: occasional ??? Drug use: Not Currently Review of Systems Review of Systems All other systems reviewed and are negative. Physical Exam ED Triage Vitals [07/30/22 1650] Temp Heart Rate Resp BP 36.7 ???C (98 ???F) 66 16 (!) 134/115 SpO2 Temp Source Heart Rate Source Patient Position 98 % Oral -- -- BP Location FiO2 (%) -- -- Physical Exam Constitutional: General: He is not in acute distress. Appearance: He is not ill-appearing. HENT: Head: Normocephalic and atraumatic. Eyes: Conjunctiva/sclera: Conjunctivae normal. Pupils: Pupils are equal, round, and reactive to light. Cardiovascular: Rate and Rhythm: Normal rate and regular rhythm. Pulmonary: Effort: Pulmonary effort is normal. Breath sounds: Normal breath sounds. Musculoskeletal: General: Normal range of motion. Cervical back: Neck supple. Skin: General: Skin is warm and dry. Neurological: Mental Status: He is alert and oriented to person, place, and time. Procedures ED Course & MDM ED Course as of 07/30/221907Jul 30, 20221904 Dr. Nathan With electrophysiology came down to the emergency department and evaluated the patient. He stated that patient did not actually have third-degree heart block and can be discharged. The patient will be discharged and was instructed to follow up with his cement truck loader at the first available appointment or return to the emergency department if there are any increase in symptoms or any other concerns. Patient stated they understood and agreed with the plan. [TS] ED Course User Index [TS] Maura Dan, Diagnoses as of 07/30/221907 Cardiac arrhythmia, unspecified cardiac arrhythmia type Medical Decision Making I, Marina lopez, documented on behalf of Dr. Dan. Chief complaint: Irregular heat beat. Differential Diagnosis includes but is not limited to 3rd degree block, atrial fibrillation, and normal sinus rhythm. Plan of Care: Consult cardiology. Magnesium, Troponin, CBC, and BMP. 17:28 Dr. Dan spoke to damage inside adjuster. cardio clinician states they will discuss pt's case with Dr. Kimble. 18:[address] Gutierrez and plan is for pt to be discharged. 19:00 Plan is to discharge pt. Dr. Dan discussed return precautions with pt. Attestation: Provider Statement ERLIN: Provider Statement 2nd Scribe. By electronically signing this emergency patient record, the Emergency Physician/ENTERPRISE ACCOUNT EXECUTIVE/PA-C attests that all entries made into the electronic medical record by the scribe prior to the Physician/ENTERPRISE ACCOUNT EXECUTIVE/PA-C signature reflect an accurate accounting of the evaluation and care rendered by that Emergency Physician/ENTERPRISE ACCOUNT EXECUTIVE/PA-C. The Emergency Physician/ENTERPRISE ACCOUNT EXECUTIVE/PA-C assumes full responsibility for those entries. The Emergency Physician/ENTERPRISE ACCOUNT EXECUTIVE/PA-C also attests that any patient testing or treatment that was instituted by nursing staff. Maura Dan, DO 08/01/22 1515 Normal [facility] MAGNESIUMon 07-30-2022 Magnesium [Mass/Vol] 2.1 mg/dL Normal 1.9-2.7 [facility] Comment on above: Performed By: #### L [id number] #### [facility] ([facility]) [address] [place] [address] TROPONIN Ion 07-30-2022 Troponin I.cardiac [Mass/Vol] 0.01 ng/mL Normal 0.00-0.04 [facility] Comment on above: Performed By: #### L [id number] ####[facility] ([facility])[address] [place] [address] GLYCOHEMOGLOBIN A1Con 2022 ADA RECOMMENDATION SEE BELOW Normal [facility] Comment on above: Result Comment: ADA RECOMMENDED LIMIT 4.0 - 6.0 ADA THERAPEUTIC TARGET < 7.0 ACTION SUGGESTED > 7.0 Performed By: #### A 1C #### [facility] [address] [place] [address] Dr. Tiny Miranda Glucose [Mass/Vol] 123 mg/dL Normal [facility] Comment on above: Performed By: #### A 1C #### [facility] [address] [address] [address] Tiny Miranda HbA1c (Bld) [Mass fraction] 5.9 % Normal 4.5-6.2 [facility] Comment on above: Performed By: #### A 1C #### [facility] [address] [address] [address] Tiny Miranda LIPID PROFILEon 06-28-2022 CHOL-HDL RATIO NORM SEE BELOW Normal [facility] Comment on above: Result Comment: 3.3 - 4.4 LOW RISK 4.4 - 7.1 AVERAGE RISK 7.1 - 11.0 MODERATE RISK >11.0 HIGH RISK Performed By: #### L MALACHI, LIPID #### [facility] [address] [address] [address] Tiny Miranda Cholesterol [Mass/Vol] 132 mg/dL Normal <=200 [facility] Comment on above: Performed By: #### L MALACHI, LIPID #### [facility] [address] [address] [address] Tiny Miranda Cholesterol in HDL [Mass/Vol] 39 mg/dL Critically low 40-60 [facility] Comment on above: Performed By: #### L MALACHI, LIPID #### [facility] [address] [address] [address] Tiny Miranda Cholesterol in LDL [Mass/Vol] 70.2 mg/dL Normal [facility] Comment on above: Performed By: #### L MALACHI, LIPID #### [facility] [address] [address] [address] Tiny Miranda Cholesterol.total/Ch olesterol in HDL [Mass ratio] 3.4 {ratio} Normal [facility] Comment on above: Performed By: #### L MALACHI, LIPID #### [facility] [address] [address] [address] Tiny Miranda HDL NORMAL > or = 60 mg/dl - LO W CARDIOVASCULAR RISK <40 mg/dl - HIGH CARDIOVASCULAR RISK Normal [facility] Comment on above: Performed By: #### L MALACHI, LIPID #### [facility] [address] [place] [address] Dr. Tiny Miranda LDL CALC NORMAL SEE BELOW Normal [facility] Comment on above: Result Comment: <100 mg/dl OPTIMAL 100 - 129 mg/dl NEAR OR ABOVE OPTIMAL 130 - 159 mg/dl BORDERLINE HIGH 160 - 189 mg/dl HIGH >190 mg/dl VERY HIGH Performed By: #### L IVROQUE, LIPID #### [facility] [address] [place] [address] Dr. Tiny Miranda Triglyceride [Mass/Vol] 114 mg/dL Normal <=150 [facility] Comment on above: Performed By: #### L IVROQUE, LIPID #### [facility] [address] [place] [address] Dr. Tiny Miranda VLDL CALC 22.8 mg/dL Normal [facility] Comment on above: Performed By: #### L MALACHI LIPID #### [facility] [address] [place] [address] Dr. Tiny Miranda LIVER PROFILEon 06-28-2022 Albumin [Mass/Vol] 3.6 g/dL Normal 3.4-5.0 [facility] Comment on above: Performed By: #### L MALACHI LIPID #### [facility] [address] [place] [address] Dr. Tiny Miranda Albumin/Globulin [Mass ratio] 1.0 {ratio} Normal [facility] Comment on above: Performed By: #### L IVROQUE, LIPID #### [facility] [address] [place] [address] Dr. Tiny Miranda ALP [Catalytic activity/Vol] 48 U/L Normal 46-116 [facility] Comment on above: Performed By: #### L IVROQUE, LIPID #### [facility] [address] [place] [address] Dr. Tiny Miranda ALT [Catalytic activity/Vol] 39 U/L Normal 16-63 [facility] Comment on above: Performed By: #### L IVROQUE, LIPID #### [facility] [address] [place] [address] Dr. Tiny Miranda AST [Catalytic activity/Vol] 26 U/L Normal 15-37 [facility] Comment on above: Performed By: #### L MALACHI LIPID #### [facility] [address] [address] [address] Tiny Miranda BILI, CONJUGATED 0.1 mg/dL Normal 0.0-0.2 [facility] Comment on above: Performed By: #### L MALACHI LIPID #### [facility] [address] [address] [address] Tiny Miranda Bilirubin [Mass/Vol] 0.6 mg/dL Normal 0.2-1.0 [facility] Comment on above: Performed By: #### L MALACHI LIPID #### [facility] [address] [address] [address] Tiny Miranda Globulin (S) [Mass/Vol] 3.6 g/dL Normal [facility] Comment on above: Performed By: #### L MALACHI LIPID #### [facility] [address] [address] [address] Tiny Miranda Protein [Mass/Vol] 7.2 g/dL Normal 6.4-8.[address] [facility] Comment on above: Performed By: #### L MALACHI LIPID #### [facility] [address] [place] [address] Dr. Tiny Miranda PROF CHEM 8 (BAS METB)on Anion gap [Moles/Vol] 12.4 mmol/L Normal [facility] Comment on above: Performed By: #### B MP ####[facility] [address] [address]Dr. Tiny Miranda Calcium [Mass/Vol] 9.2 mg/dL Normal 8.5-10.[address] [facility] Comment on above: Performed By: #### B MP ####[facility] [address] [address]Dr. Tiny Miranda Chloride [Moles/Vol] 104 mmol/L Normal 98-107 [facility] Comment on above: Performed By: #### B MP ####[facility] [address] [address]Dr. Tiny Miranda CO2 [Moles/Vol] 30.5 mmol/L Normal 21.0-32.0 [facility] Comment on above: Performed By: #### B MP ####[facility] [address] [address]Dr. Tiny Ruben Creatinine [Mass/Vol] 1.12 mg/dL Normal 0.70-1.30 [facility] Comment on above: Performed By: #### B MP ####[facility] [address] [address]Dr. Tiny Ruben EGFR-AF CHADIAN >60 Normal >=60 [facility] Comment on above: Performed By: #### B MP ####[facility] [address] [place], [place] [address]Dr. Tiny Miranda EGFR-NON AF CHADIAN >60 Normal >=60 [facility] Comment on above: Performed By: #### B MP ####[facility] [address] [place], [place] [address]Dr. Josielisa Miranda Glucose [Mass/Vol] 121 mg/dL Critically high 74-106 [facility] Comment on above: Performed By: #### B MP ####[facility] [address] [place], [place] [address]Dr. Tiny Miranda Potassium [Moles/Vol] 4.9 mmol/L Normal 3.5-5.1 [facility] Comment on above: Performed By: #### B MP ####[facility] [address] [place], [place] [address]Dr. Tiny Ruben Sodium [Moles/Vol] 142 mmol/L Normal 136-145 [facility] Comment on above: Performed By: #### B MP ####[facility] [address] [place], [place] [address]Dr. Josielisa Ruben Urea nitrogen [Mass/Vol] 14.0 mg/dL Normal 7.0-18.0 [facility] Comment on above: Performed By: #### B MP ####[facility] [address] [place], [place] [address]DrColeman Miranda Urea nitrogen/Creatinine [Mass ratio] 12.5 mg/mg Normal [facility] Comment on above: Performed By: #### B ####[facility] [address] [place], [place] [address]QuColeman Miranda US MARY DOP LEG LTon 05-19-19 23 US MARY DOP LEG LT EXAMINATION: US MARY DOP LEG LT HISTORY: Acute postoperative pain ; left leg pain and swelling COMPARISON: No relevant comparison available. FINDINGS: REGION: Left lower extremity THROMBI: None. COMPRESSIBILITY: Normal compressibility. FLOW: Normal waveform and antegrade flow between 5 and 20 cm/s. OTHER: None. IMPRESSION: 1. No deep vein thrombus within the left lower extremity. Electronically authenticated by: RENÉE GARSIA Date: 2022-05-19 16:48 Normal [facility] NM STRESS/REST MULTIon 04-14 NM STRESS/REST MULTI Patient: GEO TODD Exam Date: 04/14/2022 : 1955 Gender:M Ordering : DR DEON MIR . Admission #: [id number] Family : Order #: [id number] CLICK HERE TO VIEW EXAM RADIOLOGY REPORT PROCEDURE: RADIONUCLIDE IMAGING STRESS/REST MULTI COMPARISON: None. INDICATIONS: Chest pain TECHNIQUE: Exam Description: Stress/Rest one day protocol gated SPECT Rest Imagin.7 mCi Tc-99m Cardiolite IV on 04/14/2022 Stress Imaging 30.0 mCi Tc-99m Cardiolite IV on 04/14/2022 Exercise Protocol: Brant Heart Rate (bpm): Rest: 80 Max: 131 PMHR: 86 Blood Pressure: Rest: 158/98 Max: 192/100 Exercise Time: Minutes: 4 Seconds: 40 Stage Reached: Stage: 2 Mets 6.8 Symptoms: Rest and peak stress ECG findings were abnormal and the exercise portion of the study was abnormal per attending physician Dr. Collins due to EKG changes, ST segment elevation in lateral leads and ST segment down-sloping in inferior leads. For more details please see separate cardiac stress test report. FINDINGS: QUALITY OF STUDY: Good. PERFUSION DEFECT: LOCATION: Basal inferior. Basal inferolateral. Mid-inferior. Apical inferior. SIZE: Medium (3-4 segments). SEVERITY: Moderate. TYPE: Reversible. WALL MOTION: Normal. LV SIZE: Normal. 110 mL. TID / TCD: None; 0.9 LVEF: Normal. Calculated EF 58%. SUMMARY: Myocardial perfusion imaging study has ABNORMAL findings. CONCLUSION: 1. Area of suspected reversible ischemia inferior wall RCA distribution 2. Abnormal exercise test secondary to EKG changes Dictated by: Narciso Neff MD on 04/15/2022 at 07:49 Approved by: Narciso Neff MD on 04/15/2022 at 07:51 Normal [facility] HEPATITIS PANEL, ACUTEon HBsAg Screen Negative Normal Negative [facility] Comment on above: Performed By: #### H EPACUT ####[facility] [address] [address]Dr. Tiny Miranda HCV AB <0.1 Normal 0.0-0.9 [facility] Comment on above: Performed By: #### H EPACUT ####[facility] [address] [address]Dr. Tiny Miranda Hep A Ab, IgM Negative Normal Negative [facility] Comment on above: Performed By: #### H EPACUT ####[facility] [address] [address]Dr. Tiny Miranda Hep B Core Ab, IgM Negative Normal Negative [facility] Comment on above: Performed By: #### H EPACUT ####[facility] [address] [address]Dr. Tiny Miranda Interpretation: Comment Normal [facility] Comment on above: Result Comment: Nega tive Not infected with HCV, unless recent infection is suspected or other evidence exists to indicate HCV infection. Performed By: #### H EPACUT ####[facility] [address] [address]Dr. Tiny Miranda INSULINon 04-06-2022 Insulin 51.4 uIU/mL Critically high 2.6-24.9 [facility] Comment on above: Performed By: #### I NSULIN ####[facility] [address] [place], [place] [id number]. Tiny Miranda BNPon 04-05-2022 Natriuretic peptide B (Bld) [Mass/Vol] 20.0 pg/mL Normal <=900.0 [facility] Comment on above: Performed By: #### C MP, BNP, LIPID #### [facility] [address] [place] [address] Dr. Tiny Miranda CBC AUTO DIFFon 04-05-2022 BASO # 0.1 103/ul Normal 0.0-0.1 [facility] Comment on above: Performed By: #### C BC #### [facility] [address] [place] [address] Dr. Tiny Miranda Basophils/100 WBC (Bld) 1.8 % Normal 0.2-2.0 [facility] Comment on above: Performed By: #### C BC #### [facility] [address] [place] [address] Dr. Tiny Miranda EO # 0.2 103/ul Normal 0.0-0.7 [facility] Comment on above: Performed By: #### C BC #### [facility] [address] [place] [address] Dr. Tiny Miranda Eosinophils/100 WBC (Bld) 3.9 % Normal 0.9-7.0 [facility] Comment on above: Performed By: #### C BC #### [facility] [address] [place] [address] Dr. Tiny Miranda Erythrocyte distribution width (RBC) [Ratio] 12.9 % Normal 11.0-15.0 [facility] Comment on above: Performed By: #### C BC #### [facility] [address] [place] [address] Dr. Tiny Miranda Hematocrit (Bld) [Volume fraction] 47.8 % Normal 42.0-54.0 [facility] Comment on above: Performed By: #### C BC #### [facility] [address] [place] [address] Dr. Tiny Miranda Hemoglobin (Bld) [Mass/Vol] 16.5 g/dL Normal 14.0-18.0 [facility] Comment on above: Performed By: #### C BC #### [facility] [address] [place] [address] Dr. Tiny Miranda IG # 0.03 10e3/ul Normal 0.00-0.03 [facility] Comment on above: Performed By: #### C BC #### [facility] [address] [place] [address] Dr. Tiny Miranda IG % 0.5 % Normal 0.0-0.5 [facility] Comment on above: Performed By: #### C BC #### [facility] [address] [place] [address] Dr. Tiny Miranda LYMPH # 1.8 103/ul Normal 1.2-3.8 [facility] Comment on above: Performed By: #### C BC #### [facility] [address] [place] [address] Dr. Tiny Miranda Lymphocytes/100 WBC (Bld) 31.2 % Normal 20.5-60.0 [facility] Comment on above: Performed By: #### C BC #### [facility] [address] [place] [address] Dr. Tiny Miranda MANUAL DIFF REQ NO Normal [facility] Comment on above: Performed By: #### C BC #### [facility] [address] [place] [address] Dr. Tiny Miranda MCH (RBC) [Entitic mass] 32.4 pg Normal 25.9-34.0 [facility] Comment on above: Performed By: #### C BC #### [facility] [address] [place] [address] Dr. Tiny Miranda MCHC (RBC) [Mass/Vol] 34.5 g/dL Normal 29.9-35.2 [facility] Comment on above: Performed By: #### C BC #### [facility] [address] [place] [address] Dr. Tiny Miranda MCV (RBC) [Entitic vol] 93.7 fL Normal 80.0-94.0 [facility] Comment on above: Performed By: #### C BC #### [facility] [address] [place] [address] Dr. Tiny Miranda MONO # 0.4 103/ul Normal 0.3-0.8 [facility] Comment on above: Performed By: #### C BC #### [facility] [address] [place] [address] Dr. Tiny Miranda Monocytes/100 WBC (Bld) 6.9 % Normal 1.7-12.0 [facility] Comment on above: Performed By: #### C BC #### [facility] [address] [place] [address] Dr. Tiny Miranda NEUT # 3.2 103/ul Normal 1.4-6.5 [facility] Comment on above: Performed By: #### C BC #### [facility] [address] [place] [address] Dr. Tiny Miranda Neutrophils/100 WBC (Bld) 55.7 % Normal 43.0-75.0 [facility] Comment on above: Performed By: #### C BC #### [facility] [address] [place] [address] Dr. Tiny Miranda Platelet mean volume (Bld) [Entitic vol] 9.0 fL Critically low 9.5-13.5 [facility] Comment on above: Performed By: #### C BC #### [facility] [address] [place] [address] Dr. Tiny Miranda PLT 219 103/ul Normal 150-450 [facility] Comment on above: Performed By: #### C BC #### [facility] [address] [place] [address] Dr. Tiny Miranda RBC 5.10 106/ul Normal 4.70-6.10 [facility] Comment on above: Performed By: #### C BC #### [facility] [address] [place] [address] Dr. Tiny Miranda WBC 5.7 103/ul Normal 4.0-11.0 [facility] Comment on above: Performed By: #### C BC #### [facility] [address] [place] [address] Dr. Tiny Miranda GLYCOHEMOGLOBIN A1Con 2021 ADA RECOMMENDATION SEE BELOW Normal [facility] Comment on above: Result Comment: ADA RECOMMENDED LIMIT 4.0 - 6.0 ADA THERAPEUTIC TARGET < 7.0 ACTION SUGGESTED > 7.0 Performed By: #### A 1C #### [facility] [address] [address] [address] Tiny Miranda Glucose [Mass/Vol] 140 mg/dL Normal [facility] Comment on above: Performed By: #### A 1C #### [facility] [address] [address] [address] Tiny Miranda HbA1c (Bld) [Mass fraction] 6.5 % Critically high 4.5-6.2 [facility] Comment on above: Performed By: #### A 1C #### [facility] [address] [place] [address] Dr. Tiny Miranda LIPID PROFILEon 04-05-2022 CHOL-HDL RATIO NORM SEE BELOW Normal [facility] Comment on above: Result Comment: 3.3 - 4.4 LOW RISK 4.4 - 7.1 AVERAGE RISK 7.1 - 11.0 MODERATE RISK >11.0 HIGH RISK Performed By: #### C MP, BNP, LIPID #### [facility] [address] [address] [address] Tiny Miranda Cholesterol [Mass/Vol] 241 mg/dL Critically high <=200 [facility] Comment on above: Performed By: #### C MP, BNP, LIPID #### [facility] [address] [address] [address] Tiny Miranda Cholesterol in HDL [Mass/Vol] 41 mg/dL Normal 40-60 [facility] Comment on above: Performed By: #### C MP, BNP, LIPID #### [facility] [address] [address] [address] Tiny Miranda Cholesterol in LDL [Mass/Vol] 167.6 mg/dL Normal [facility] Comment on above: Performed By: #### C MP, BNP, LIPID #### [facility] [address] [address] [address] Tiny Miranda Cholesterol.total/Ch olesterol in HDL [Mass ratio] 5.9 {ratio} Normal [facility] Comment on above: Performed By: #### C MP, BNP, LIPID #### [facility] [address] [address] [address] Tiny Miranda HDL NORMAL > or = 60 mg/dl - LO W CARDIOVASCULAR RISK <40 mg/dl - HIGH CARDIOVASCULAR RISK Normal [facility] Comment on above: Performed By: #### C MP, BNP, LIPID #### [facility] [address] [address] [address] Tiny Miranda LDL CALC NORMAL SEE BELOW Normal [facility] Comment on above: Result Comment: <100 mg/dl OPTIMAL 100 - 129 mg/dl NEAR OR ABOVE OPTIMAL 130 - 159 mg/dl BORDERLINE HIGH 160 - 189 mg/dl HIGH >190 mg/dl VERY HIGH Performed By: #### C MP, BNP, LIPID #### [facility] [address] [address] [address] Tiny Miranda Triglyceride [Mass/Vol] 162 mg/dL Critically high <=150 [facility] Comment on above: Performed By: #### C MP, BNP, LIPID #### [facility] [address] [address] [address] Tiny Miranda VLDL CALC 32.4 mg/dL Normal [facility] Comment on above: Performed By: #### C MP, BNP, LIPID #### [facility] [address] [address] [address] Tiny Miranda PROF 14(COMP METB)on 022 Albumin [Mass/Vol] 4.0 g/dL Normal 3.4-5.0 [facility] Comment on above: Performed By: #### C MP, BNP, LIPID #### [facility] [address] [address] [address] Tiny Miranda Albumin/Globulin [Mass ratio] 1.0 {ratio} Normal [facility] Comment on above: Performed By: #### C MP, BNP, LIPID #### [facility] [address] [address] [address] Tiny Miranda ALP [Catalytic activity/Vol] 56 U/L Normal 46-116 [facility] Comment on above: Performed By: #### C MP, BNP, LIPID #### [facility] [address] [address] [address] Tiny Miranda ALT [Catalytic activity/Vol] 154 U/L Critically high 16-63 [facility] Comment on above: Performed By: #### C MP, BNP, LIPID #### [facility] [address] [address] [address] Tiny Miranda Anion gap [Moles/Vol] 10.9 mmol/L Normal [facility] Comment on above: Performed By: #### C MP, BNP, LIPID #### [facility] [address] [address] [address] Tiny Miranda AST [Catalytic activity/Vol] 86 U/L Critically high 15-37 [facility] Comment on above: Performed By: #### C MP, BNP, LIPID #### [facility] [address] [place] [address] Dr. Tiny Miranda Bilirubin [Mass/Vol] 0.8 mg/dL Normal 0.2-1.0 [facility] Comment on above: Performed By: #### C MP, BNP, LIPID #### [facility] [address] [address] [address] Tiny Miranda Calcium [Mass/Vol] 9.0 mg/dL Normal 8.5-10.1 [facility] Comment on above: Performed By: #### C MP, BNP, LIPID #### [facility] [address] [address] [address] Tiny Miranda Chloride [Moles/Vol] 102 mmol/L Normal 98-107 [facility] Comment on above: Performed By: #### C MP, BNP, LIPID #### [facility] [address] [address] [address] Tiny Miranda CO2 [Moles/Vol] 28.3 mmol/L Normal 21.0-32.0 [facility] Comment on above: Performed By: #### C MP, BNP, LIPID #### [facility] [address] [address] [address] Tiny Miranda Creatinine [Mass/Vol] 1.12 mg/dL Normal 0.70-1.30 [facility] Comment on above: Performed By: #### C MP, BNP, LIPID #### [facility] [address] [address] [address] Tiny Miranda EGFR-AF CHADIAN >60 Normal >=60 [facility] Comment on above: Performed By: #### C MP, BNP, LIPID #### [facility] [address] [address] [address] Tiny Miranda EGFR-NON AF CHADIAN >60 Normal >=60 [facility] Comment on above: Performed By: #### C MP, BNP, LIPID #### [facility] [address] [address] [address] Tiny Miranda Globulin (S) [Mass/Vol] 4.1 g/dL Normal [facility] Comment on above: Performed By: #### C MP, BNP, LIPID #### [facility] [address] [address] [address] Tiny Miranda Glucose [Mass/Vol] 132 mg/dL Critically high 74-106 [facility] Comment on above: Performed By: #### C MP, BNP, LIPID #### [facility] [address] [address] [address] Tiny Miranda Potassium [Moles/Vol] 4.2 mmol/L Normal 3.5-5.1 [facility] Comment on above: Performed By: #### C MP, BNP, LIPID #### [facility] [address] [address] [address] Tiny Miranda Protein [Mass/Vol] 8.1 g/dL Normal 6.4-8.2 [facility] Comment on above: Performed By: #### C MP, BNP, LIPID #### [facility] [address] [address] [address] Tiny Miranda Sodium [Moles/Vol] 137 mmol/L Normal 136-145 [facility] Comment on above: Performed By: #### C MP, BNP, LIPID #### [facility] [address] [address] [address] Tiny Miranda Urea nitrogen [Mass/Vol] 15.0 mg/dL Normal 7.0-18.0 [facility] Comment on above: Performed By: #### C MP, BNP, LIPID #### [facility] [address] [place], [place] [address] Dr. Tiny Miranda Urea nitrogen/Creatinine [Mass ratio] 13.4 mg/mg Normal [facility] Comment on above: Performed By: #### C MP, BNP, LIPID #### [facility] [address] [place], [place] [address] Dr. Tiny Miranda Reminderson 09-08-2021 Reminders - From: Aguilar Sanchez To: [facility] - Reminders/Recalls; Sent: 09/07/2021 22:51:37 EDT Show up: 07/14/2026 22:51:00 EST Subject: Ambulatory Reminder Due Date/Time: 08/14/2026 22:51:00 EDT Reminder/Recall colonoscopy reminder 5 years Normal [facility] IntraOperative Documentson 0 07-27-2021 IntraOperative Documents [id number]#1. 00CD:127 Normal [facility] Postoperative Documentson Postoperative Documents [id number]#1.0 0CD:127 Normal [facility] Coding Summary.on 07-21-2021 Coding Summary. CD:[id number] Gh 0bWw+PGhlYWQ+PK5ALDXuO 39grLGrbZ4LU7eYYE2SHIB SPFXQWO8AZK8ncIN2WSshW 2VybiAv TsvvcMKmAW97JOt8AVN6lR koHGhvfS9icFPmR8j7MnOt MH96zO69MKvjADWsBnT5Dy ZpbjsgbWFy E3kyFzLllIPiNwk+PHRhYm xlIHdpZHRoPScxMDAlJyBz uHkqWJ9pVu0gCMFjULBizX xhcHNlOiBj b2rdHDAuIOzcVB6ydHcwN7 DkiEZ8EJUhc1h2To58fPU+ LZIjZOZ1yFzbGFozp286Yi Zla7bpMOO6 eRJlJBtxHSX0L81fv6J5TR FeOQRuQTG4xLT6kW4npYza mgepB5HzaSMtNlP0OEJ4hN ArmR1jsIpt rvpanK1yRhn+E50XKD1EMV QJRD5WRku1M8FbSamiaTR+ AY49KHZzCQ52wJZpgSKyu8 zbbCo6XfWb DJAuHJK8oHfnCTvmy2BeVF JoG89jcOQfw3Z7BIDiyXff rBJdWfIeiHW1zR5rAUdlls qtg6pwocht Wdzbs1raqb89nG25P03hMF rvLZLdHBD9CISsFBJqcLlc us6esO5tBk5+CGbga5fne7 tmkCc0XdEt WDZwfvYnnQrbVCH7t5UqEx 24Y6OpyTegg6WjWaq2hr47 wPIuv4U8cZX0SNzhLGXavH 5qICylRsS3 JFQuWePvaP46yJAjLGeiHx 9jrGkhnNixMZ7zAMNalxlt USRmaE9fSGPioNAyuLnvRP 4wNTBpbjtm l701KqXmZXK7SVSmlRUbI0 VgxV7vYnFlWEIyXYAfQ4Ws aLAkSWbkL701ZUksIpH0OO TlnhQiA1Bs NOPytGfoCdA7j9S2Db9Pp5 LbihdiFYL8VSmyMITrYpW3 DgPcQgT2M8YkSld2RVSrfU vkZB8zV4Wo ECCphvzhhlmbcNJ6CXWiXP XkzO41fXSuIXlcXv7it2U3 i673YDDcHNKpfP84As5fmZ ogMTBwdCBU rR4htcomb8vlmstdBgWcHY OoAOe2WSg5QIApeCxxDgFt IFR5HdC6PYD9cNPbkR4nyU qvscmugO1o Oyc+H66mhS2pGIV9XHE3nv nuNNGotjAvJR94CP00C6Oo PjwvdGFibGU+PGRpdiBzdH oxTV3rXsDn y9sjh7DuDXqzY7ZhFOBfFC qhTei4FTPiDXC8tTU2cH7n LATmHIssw9A9jYD4S1Zsnu Wbho1yd1aj UHYuFKvnB43qsYWat3O1AR FzoXG0BTPfkZdhWzGetS91 Oyc+XVUvgAwyx7OlCqjmg1 vka4bhxDh0 GyDqAOVgexXljXdaXFZ0b1 BpTb86K41fARntLHEiJPMy OHGpDDGrlZfbxw1wuG1mQs 8+PGNvbCB3 vEB5uG7nCIVrBxB3VUsbP2 16MwMbsTIxVhpon4xqf4qd lZn8BfWhLFOggrWsoKltZE V9m6PaEs11 H55aHCiaZKZsFRRwRKNiQF OfvFysba2rnO2fYv3+PC9j t9hakw83uN54eQR+PHRkIH E3gWhuBTun UGHxoV4lGAkbQnK3MNWjAc QpdP16kNLhYKghVd8onRmp dAbsIX0tAGWljdvro595Nt Hrb7knHSFf vQIzKPbiQUK2D16ld2J2HG JqPCLpAXM5rUX4qE3euPhp bjogbGVmdDsgdmVydGljYW wrTPckS854 IHRvcDsnPlBhdGllbnQgTm YsAWs3B1LaUby4MBUxtQot PQ3nfYSyAOreJx5plFvcpK qvMA4fRJXd zqthx070IxAza1ptDEKrfK YsPFewWJL4O93lq3J7OVRo SWRqEVX6pZA9iM3piGrcru ogbGVmdDsg czZmiThsANlzGAywF465RQ RvcDsnPkJpcnRoIERhdGU6 EY33XZ29qJYbi1D0dCP6Z1 BhZGRpbmct jjipyBG4JZQyPLWpyP28Jq 5qdXrfLp8sAZFpFGF1TAPv nLRkL7WquE1nMhPdGXNrOE KvE1PxqRIu VLwlM032ESuaLaM6HGIzqk EpY1DgZHNzoIysNtZ3y2Q5 Ld2ZJ3V7CG22GR76nGSuf3 V2bOB3S9As RMIvfgezzyzljVB8HMPnBR OmbV46Df1xtMpuXr3nEDCu ZYW4MASuuGQzB4PmvM2mLa AjMDAwMDAw G7OtpLBcSMgtF217PGxaSm X6IELtgzAbE3SoKPNdbYlg GqE1u1Y9Gq6UOXi6HS73IU 28yPQek4Y4 jLG1Q8BtBXAlyhwynqtigT A9NTAqXDIcyQ17Fm4ebYhl Jh5fWGBmCTS4NXLdlQAzA7 JkjK1iPlXl FZWrBXAxR7RntRHuRHeoO6 26AVvhNwT7WSPnuxOpH1Dv VROtiUdkFtN7a1M9Ql9VDC ZwSF33ARI5 aEU4JT00YH70A8LwGuqulD FibGU+PHRhYmxlIHdpZHRo HXmdKXGrQqOjbYkxXM1uGf 9yZGVyLWNv hBrdtKCdJoZro9lfOAVeVU idIF2qhSnvB7XrlRE2XVGe i6w1El02Z91tP6UboHQ+PG FbvLU7dLF9 aE8iBsFxBaF2QFjkO393Cw WqfNEcOnyju8zff4rvlAr0 RcS1NHOmmxAgkBurRRB5s5 LlPc24D99i IHdpZHRoPSIxNSUiIHZhbG vmal8dnX1lNb6+PGNvbCB3 nRI3pA2lMnDhWfK8TKcuU4 49InRvcCIv Fsatg9mwl2ngjXt0FcGyKH UyikZzgNliOTV6k7ZkUc49 N5PnsBuaq0NzTch7bm75oM Myi8O5xDJ2 Z9YtZSSsrqyrvPPtfVqqDR 8dPPQpwrkzESYyaG4cNHRv M8g0CfXeUgI5VMybI6Gewb G3CWHrtMEa LBmwOZV6W23zg1X2IFWmWD GpNPF4oEP2cL3gcXrhgnih bGVmdDsgdmVydGljYWwtYW ucZ132WKNm mOunKXFxoB3lLFXcpSVtmP htDT7fINFtumjaOlPRRbDC ZgQdVCkPTNzLAQ3iHJruwH Q+PHRkIHN0 hVlbQDwoAIFanI1nDRQfG1 t2PpVuJhV4WJdaV9IxWVYt zyofWl88lX6nDvHxHcG4LX obK8ZwliA3 IMEzmEBrOSpbHXH0U87fa0 M5KEZkWAPoHXL4xIU3sW6f bGlnbjogbGVmdDsgdmVydG ljYWwtYWxp N721MFHjjCcxHkChIfQbYk T0XDO3U8HkIus8SOQdyTlc QK2cfXVfXXowBt5meMqgrL rxHB1fNLCy pnahIEDweQ3yGAZzqLBryF gsGY4cETEsqzbps268PzAb SMN8QKDnwIWqJ0UgkF1oOp AjMDAwMDAw D8FtlSZqTXgcI995YPtvOy T3ZISblnFrR5RpQVJrqKae HdU2o4V9Sr98JGTRWFUxcu wvdGQ+PHRk VFJ6gMouDNckHXBiwO3uHQ ZtV0z3QrLuVfK3WPxcC2Hy ZHUcqrewFa86dH9iDjHdTb M3HWqlT3Hz qlH8JNSdmLDfVMahVII0F9 8yp3F3VXUlZDWuRHK2bYZ0 yL9ucOcoeuxmqBIkwYuokx VydGljYWwt TAjfM575MHCsoRlrPf6inS L1Q4MrAkm0GYPpbDhzVO5p eBDgZXfkGt2hkSxisTjtEY 4wNTBpbjtw QZEvlL2fJIKhkLHswCuuTF 9fQHOjidifj666PrXnXHU8 ERAizFXtY9KowK3vHsXvRY CcCJBdC2Qp hIEdIWtgE279YOvbKqA8GW OzsjIxF7BeYJCwmQoxTyB2 h3E2Po9UnQXbIMOvZO42ZL 54DH91T0Nb PjwvdGFibGU+PHRhYmxlIH dpZHRoPScxMDAlJyBzdHls JP0fHv0bTRAyQSBogImxhP TnNkPza8fd OEOjVUteLZ5tzXfiF5QycL U3BNWei9s9Lf84H60iI8Ro dXA+HGTfxHD1wUK9hL8oFp NvZtN6RPum F412GvCasVSeUstne5ine8 cizYn4UlUgOAEtxnWtaGjt CAP5k1NiGd05G97jHVmiSD RoPSIyMCUi AXCqrCinzk3wnN2yEk8+PG NlqGI9mHF0xJ5zUxIvCoW6 PZfyC679BkEivZKfVvwrL2 8wO3NxyWE+ GRFiIup6PBKosXmtMP3wgB FiWSfuGj1sDIO4LjKbZaRc FTupE0SkAAZfttfqmaaacG X1BULuNNVf xT02Xi2kuLteOd1tHNRiIG G1AVJzjFRzU9OhzW4sXfZj LKLxSGCsN4OieFEaCSfeH0 86RYvpHgF5 ZZCbsxDmF1OlVJAluXgwMa K1t5M1Mi9JrCaraMQfHT6j QzBiCMv7M6BmYde3IXWhwB qgMB7rbOAr PZgsHm9aaAtutMmoVG7rOW Pzffpqt964FxIcg4lbCWMf cIXfONtxLOD8S33dn5A5RX MwMDAwMDA7 yXO6sB9nkQkmymkiqNTmxC mjxlDmpYkhWAbmPJzvO740 NPRurDcgRjDRQxr2V3ViGb a3LJVyfCse KS4opPKoFKscBv2moFqfgU ixFP7nXLAtsdgwi192UxCb y8ojZHKlaUFyKFfhAJP0L4 5lg2Q2KSCr TVPgWDK9iSE9tK1xfTdaio ogbGVmdDsgdmVydGljYWwt MHdzM960DDLlqMjcDi8QFg q0L3RwIhq5 SBQowKzqUR4fvAEmVRzbFr 2lsTglyJavZX1fITSyukhw c373InSef1rdWLFnpSEkRS dyLTP5W52d k2R6DHFtKESqNXC3kFO0hV 1hbGlnbjogbGVmdDsgdmVy qPfqOEpjXSuhB258VSJleX snPlBheWVy OjwvdGQ+ZJ62yu01R6DjKn onZin2OKWpJFE2nJO2zM3q HPOfQYpsf7P2lFV5A4Irtu Bdtz6ny7uo YXBz (more content not included)... Normal [facility] Main OR Intraoperative Recor don 07-21-2021 Main OR Intraoperative Record IntraOp Document Type FT Summary Primary Physician: Rebecca SARAVIA MD Finalized Date/Time: 07/21/21 12:04:08 Pt. Name: GEO TODD/Sex: 1955 Male Med Rec #: [id number] Physician: MANJIT WILSON, Rebecca Financial #: [id number] Pt. Type: O Room/Bed: / Admit/Disch: 07/17/21 11:12:18 - 07/17/21 23:59:59 Institution: Case Times FT Entry 1 Patient Times In Room 07/17/21 12:31:00 Out Room 07/17/21 12:44:00 Procedure Times Start 07/17/21 12:34:00 Stop 07/17/21 12:41:00 Anesthesia Times Start 07/17/21 12:31:00 Stop 07/17/21 12:44:00 Last Modified By: Sadia ARANA, Zuhair Burrows 07/17/21 12:45:13 General Comments: 07/21/21 chart open to review and send charges dane bustillos rn Case Attendance FT Entry 1 Entry 2 Entry 3 Case Attendee Junior ROSALES, Ashley SARAVIA MD, Rebecca Mccullough RN, Zuhair Burrows Role Performed Anesthesiologist Surgeon - Primary Regional Planner - Primary Rotary Planer Set Up Operator Time In 07/17/21 12:31:00 07/17/21 12:31:00 07/17/21 12:31:00 Time Out 07/17/21 12:44:00 07/17/21 12:44:00 07/17/21 12:44:00 Procedure COLONOSCOPY(.) COLONOSCOPY(.) COLONOSCOPY(.) Comments Dr. Romano supervising case Last Modified By: Sadia RN, Zuhair Mccullough RN, Zuhair Mccullough RN, Zuhair Burrows 07/17/21 12:45:14 07/17/21 12:45:14 07/17/21 12:45:14 Entry 4 Entry 5 Case Attendee Alise Chairez Kirstyn K Role Performed Scrub - Primary Staff - Other Time In 07/17/21 12:31:00 07/17/21 12:35:00 Time Out 07/17/21 12:44:00 07/17/21 12:44:00 Procedure COLONOSCOPY(.) COLONOSCOPY(.) Comments Last Modified By: Sadia RN, Zuhair Mccullough RN, Zuhair Burrows 07/17/21 12:45:14 07/17/21 12:45:14 Perioperative Protocols FT Pre-Care Text: Implements protective measures prior to operative or invasive procedure, confirms identity before the operative or invasive procedure, verifies operative procedure, surgical site, and laterality Entry 1 Procedure(s) COLONOSCOPY(.) Patient Identity Birthday, ID Band Verified (select at Check, Patient least 2): Participation Consents / H and P Anesthesia Consent, Operative Site N/A Verified HandP, Surgery/Procedure Marking Verified Consent Surgical Site No Laterality Verified n/a Verified Procedure Verified Yes Correct Patient Yes Position Verified Availability Equipment, Medication Prep Dry n/a Verified (If Applicable) PreOp Antibiotic No Time Out Ashley Bell, Given Participants Rebecca SARAVIA MD, Souter RN, Contreras Myers Micala E Time Out Complete 07/17/21 12:33:00 Outcomes Met? Yes Last Modified By: Zuhair Mccullough RN 07/17/21 12:36:32 Post-Care Text: The patient is free from signs and symptoms of injury caused by extraneous objects Allergy Information FT Pre-Care Text: Verifies allergies Entry 1 Allergies Reviewed? Yes Allergies Reviewed Self/Patient With Outcomes Met? Yes Last Modified By: Zuhair Mccullough RN 07/17/21 12:36:44 Post-Care Text: The patient received appropriate medication(s) safely administered during the perioperative period Surgical Procedures FT Entry 1 Procedure Description Procedure COLONOSCOPY Modifiers . Surgeon Description Colonoscopy with descending colon polypectomy Primary Procedure Yes Primary Surgeon Rebecca SARAVIA MD Start 07/17/21 12:34:00 Stop 07/17/21 12:41:00 Anesthesia Type General Surgical Service Gastroenterology Wound Class 2 - Clean-Contaminated Last Modified By: Zuhair Mccullough RN 07/17/21 12:42:54 General Case Data FT Pre-Care Text: Classifies surgical wound, implements aseptic technique, initiates traffic control Entry 1 Case Information OR ENDO 1 FT Case Level Level 2 Wound Class 2 - Clean-Contaminated Specialty Gastroenterology ASA Class 3 Preop Diagnosis History of colon Postop Same As Preop No polyps, Family history of colon cancer Postop Diagnosis Descending colon polyp, Outcomes Met? Yes Internal hemorrhoids Last Modified By: Zuhair Mccullough RN 07/17/21 12:43:04 Post-Care Text: The patient is free from signs and symptoms of infection Skin Assessment (Pre Procedure) FT Pre-Care Text: Implements protective measures to prevent skin/ tissue injury due to thermal or mechanical sources Evaluates for signs and symptoms of physical injury to skin and tissue Entry 1 Skin Integrity Dry, Warm Skin Abnormality No Outcomes Met? Yes Last Modified By: Zuhair Mccullough RN 07/17/21 12:37:46 Post-Care Text: The patient is free from signs and symptoms of injury caused by extraneous objects Patient Positioning FT Pre-Care Text: Identifies physical alterations that require additional precautions for procedure-specific positioning, verifies presence of prosthetics or corrective devices, positions the patient, evaluates the patient for signs and symptoms of injury as a result of positioning Entry 1 Procedure COLONOSCOPY(.) Body Position Lateral, right side up Feet Uncrossed? Yes Left Arm Position Resting at Side Right (more content not included)... Normal [facility] Consenton 07-20-2021 Consent [id number]#1. 00CD:127 Normal [facility] Discharge Instructionson Discharge Instructions [id number]#1. 00CD:127 Normal [facility] IntraOperative Documentson 0 07-20-2021 IntraOperative Documents [id number]#1. 00CD:127 [facility] IntraOperative Documents [id number]#1. 00CD:127 [facility] Consent for Treatmenton Consent for Treatment [id number]#1.0 0CD:127 Normal [facility] Endoscopic Procedure Report - Otheron 07-17-2021 Endoscopic Procedure Report - Other Patient: GEO TODD Age: 66 years Sex: Male : 1955 Associated Diagnoses: None Author: Rebecca SARAVIA MD Pre-Procedure Procedure Date 07/17/2021 12:43:00 . Procedure Type: Colonoscopy with removal of tumor(s), polyp(s), or other lesion(s) by cold snare technique. Procedure provider Performed by Rebecca Saravia MD. Current history and physical Documented on chart. Colorectal neoplasm risk assessment Average risk. Informed Consent After discussing the rationale, risks and benefits, and alternatives to this procedure, the patient provided signed consent for the procedure. Pre-procedure diagnosis: History of colon polyps. Medications Anticoagulant/antiplat elet None. ASA Classification: Class II. . Procedure The procedure was performed in the hospital. Rectal exam was performed and was normal with no masses palpated. The patient was positioned in the left lateral decubitus position and a digital rectal exam was performed.. Endoscope type used was an adult-size. The endoscope was lubricated then introduced through the anus. The scope was advanced to the cecum verified by photographing the appendiceal orifice, verified by photographing the ileocecal valve, verified by transillumination, The time to the cecum was 1 minutes, The withdrawal time was 6 minutes. No difficulties encountered during the procedure. The bowel preparation quality was adequate (see polyps greater than or equal to 6 millimeters). The patient tolerated the procedure well. Findings 1. Sessile polyp, 5 mm, in the descending, removed completely with cold snare 2. Small nonbleeding internal hemorrhoids Images Procedure images: [email or web address]_hd_video_[email or web address]__ [id number].jpg Rec1_hd_video_2021__ [id number].jpg [email or web address]_hd_video_2021__ [id number].jpg . Post-Procedure Complications: none. Estimated blood loss: none. Specimens: sent to pathology. Devices/ implants: none left in place. Impression and Plan 1. Sessile polyp, 5 mm, in the descending, removed completely with cold snare 2. Small nonbleeding internal hemorrhoids Recommendations: Repeat colonoscopy:: In 5 years, Pending pathology results. Follow-up:: Clinic follow-up in 1-2 weeks. Diet:: Resume previous diet. Medication resumption:: Continue current medications. Return to activities:: After 24 hours. Normal [facility] Comment on above: Result Comment: Elec tronically Signed By: MANJIT WILSON, Rebecca\.br\Date and Time Signed: 07/17/21 12:44 EST Other Comment: Claudia ng Attachment - attachment storage system not supported [id number] Can be viewed in source system Missing Attachment - attachment storage system not supported [id number] Can be viewed in source system Missing Attachment - attachment storage system not supported [id number] Can be viewed in source system Inpatient Patient Summaryon 07-17-2021 Inpatient Patient Summary [address] [address] [facility] Clinical Discharge Instructions PERSON INFORMATION Name: GEO TODD PHYSICIANS Admitting Physician: Rebecca SARAVIA MD Attending Physician: Rebecca SARAVIA MD PCP: Clarke WILSON, Deon Discharge Diagnosis: Colon polyp Comment: PATIENT EDUCATION INFORMATION Instructions: Colonoscopy, Care After Surgery Manjit (CUSTOM); Colon Polyps Medication Leaflets: Follow up: With: Address: When: Rebecca SARAVIA [address] [place] [address]. [address] [place] [phone] [employer] (7) Comments: office will call fof follow up MEDICATION LIST Medications to Continue with No Changes Other Medications aspirin 81 Milligram By Mouth every day. Ordered by another provider.. losartan (Cozaar 100 mg Tab) 1 Tablets By Mouth every day. omeprazole (omeprazole 40 mg Cap-EC) 1 Capsules By Mouth every day. Comment: Normal [facility] Main OR PACU I Recordon Main OR PACU I Record PACU Phase I Document Type FT Summary Primary Physician: Rebecca SARAVIA MD Finalized Date/Time: 07/17/21 14:31:57 Pt. Name: GEO TODD Markos MeadowsB./Sex: 1955 Male Med Rec #: [id number] Physician: Rebecca SARAVIA MD Financial #: [id number] Pt. Type: O Room/Bed: / Admit/Disch: 07/17/21 11:12:18 - Institution: Case Times PACU I FT Pre-Care Text: Identifies barriers to communication and implements measures to provide psychological support Develops individualized plan of care, and ensures continuity of care Maintains patient's dignity and privacy, and maintains patient confidentiality Identifies and reports philosophical, cultural, and spiritual beliefs and values Identifies individual values and wishes concerning care Implements aseptic technique, and administers prescribed antibiotic therapy and immunizing agents as ordered Evaluates postoperative tissue perfusion Implements thermoregulation measures, and monitors body temperature Evaluates postoperative respiratory status Evaluates postoperative cardiac status Evaluates postoperative neurological status Assesses pain control, collaborated in initiating patient-controlled analgesia and implements alternative methods of pain control Verifies allergies, administers prescribed medications and solutions, evaluates response to medications Entry 1 In PACU I 07/17/21 12:47:00 Discharge from PACU 07/17/21 13:17:00 I Outcomes Met? Yes Last Modified By: Bharti Kamara RN 07/17/21 14:31:46 Post-Care Text: The patient demonstrates knowledge of the expected response to the operative or invasive procedure The patient's care is consistent with the individualized perioperative plan of care The patient's right to privacy is maintained The patient's value system, lifestyle, ethnicity, and culture are considered, respected, and incorporated into the perioperative plan of care The patient participates in decisions affecting his or her perioperative plan of care The patient is free from signs and symptoms of infection The patient has wound/tissue perfusion consistent with or improved from baseline levels established preoperatively The patient is at or returning to normothermia at the conclusion of the immediate postoperative period The patient's respiratory function is consistent with or improved from baseline levels established preoperatively The patient's cardiovascular status is consistent with or improved from baseline levels established preoperatively The patient's cardiovascular status is consistent with or improved from baseline levels established preoperatively The patient demonstrates and/or reports adequate pain control throughout the perioperative period The patient received appropriate medication(s), safely administered during the perioperative period Acuity Level PACU I FT Entry 1 Start Time 07/17/21 12:47:00 Stop Time 07/17/21 13:17:00 Acuity Level Acuity Level I Last Modified By: Bharti Kamara RN 07/17/21 14:31:37 Finalized By: Bharti Kamara RN Document Signatures Signed By: Bharti Kamara RN 07/17/21 14:31 Bharti Kamara RN 07/17/21 14:31 [facility] Main OR Preoperative Recordo n 07-17-2021 Main OR Preoperative Record Holding Area Document Type FT Summary Primary Physician: Rebecca SARAVIA MD Finalized Date/Time: 07/17/21 11:54:32 Pt. Name: GEO TODD Markos Navarro./Sex: 1955 Male Med Rec #: [id number] Physician: Rebecca SARAVIA MD Financial #: [id number] Pt. Type: O Room/Bed: / Admit/Disch: 07/17/21 11:12:18 - Institution: Case Times Holding FT Pre-Care Text: Verifies consent for planned procedure, identifies individual values and wishes concerning care, includes family members in perioperative teaching Secures patient's records' belongings, and valuables, maintains patient's dignity and privacy, and maintains patient confidentiality Entry 1 In Holding 07/17/21 11:37:00 Outcomes Met? Yes Last Modified By: Paola Falk RN 07/17/21 11:37:09 Post-Care Text: The patient participates in decisions affecting his or her perioperative plan of care The patient's right to privacy is maintained Surgery Checklist FT Entry 1 Patient Birthday, ID Band Procedure History and Physical, Identification: Check, Patient Verification: Surgical Consent, With Participation Patient NPO after Midnight: Yes Results Reviewed n/a Comments: Personal Items None Complaints of Pain: No Comment: Pain Comment: Denies Operative Site n/a Marking: Availability Equipment Verified: Does Patient Smoke No Patient states Yes Comment - Adult - Laura postop adult Supervision supervision available Case Cancelled in No Holding Area see comments below for reason Last Modified By: Paola Falk RN 07/17/21 11:52:00 General Comments: Pt completed prep at 0745 and remained NPO since/MIKKIRN Finalized By: Paola Falk RN Document Signatures Signed By: Paola Falk RN 07/17/21 11:54 Normal [facility] Monitor Recordon 07-17-2021 Monitor Record [id number]. 00CD:127 Normal [facility] Monitor Record [id number]. 00CD:127 Normal [facility] Outpatient Surgery Discharge Instructionon 07-17-2021 Outpatient Surgery Discharge Instruction [address] [address] Patient Discharge Instructions PERSON INFORMATION Name: GEO TODD Date of : 1955 Current Date: 07/17/2021 12:56:01 PHYSICIANS Admitting Physician: Rebecca SARAVIA MD Discharge Diagnosis: Colon polyp GEO TODD has been given the following list of follow-up instructions, prescriptions, and patient education materials: PATIENT FOLLOW-UP INFORMATION Diet: Regular Discharge Activity: Resume normal activities in 24 hours Discharge Restrictions: No driving for 24 hrs, Do not operate machinery or tools, Do not make important decisions for 24 hours IF UNABLE TO CONTACT YOUR PHYSICIAN AND YOU FEEL IT IS AN EMERGENCY, GO TO THE NEAREST EMERGENCY ROOM OR CALL 911 I, GEO TODD, have received the attached patient education materials/instructions and have verbalized understanding: May we do a follow up call? Yes No I was present when discharge instructions were given Patient Signature Date Clinican/Nurse Signature ___ Date Follow up: With: Address: When: Rebecca SARAVIA [address] [place] [address]. [address] [place], [place] [phone] Business (1) Comments: office will call fof follow up Pharmacy Information: [facility] You may receive a survey from [employer] asking you to rate your care experience. Your feedback is important and will help us understand what we do well and how we can improve the quality of care we provide to you, your loved ones and our community. It?s an honor to serve you. Thank you for choosing [facility] HERE ARE THE MEDICATION CHANGES THAT OCCURRED DURING YOUR HOSPITAL STAY Medications to Continue with No Changes Other Medications aspirin 81 Milligram By Mouth every day. Ordered by another provider.. losartan (Cozaar 100 mg Tab) 1 Tablets By Mouth every day. omeprazole (omeprazole 40 mg Cap-EC) 1 Capsules By Mouth every day. PATIENT EDUCATION INFORMATION Instructions: Colonoscopy Care After Surgery Please read the instructions outlined below and refer to this sheet in the next few weeks. These discharge instructions provide you with general information on caring for yourself after you leave the hospital. Your doctor may also give you specific instructions. While your treatment has been planned according to the most current medical practices available, unavoidable complications occasionally occur. If you have any problems or questions after discharge, please call your doctor. ACTIVITY You may resume your regular activity, but move at a slower pace for the next 24 hours. Take frequent rest periods for the next 24 hours. Walking will help get rid of the air and reduce the bloated feeling in your abdomen (belly). No driving for 24 hours (because of the anesthesia (medicine) used during the test). You may shower. Do not sign any important legal documents or operate any machinery for 24 hours (because of the anesthesia used during the test). NUTRITION Drink plenty of fluids. You may resume your normal diet as instructed by your doctor. Begin with a light meal and progress to your normal diet. Heavy or fried foods are harder to digest and may make you feel nauseated (sick to your stomach). Avoid alcoholic beverages for 24 hours or as instructed. MEDICATIONS You may resume your normal medications unless your doctor tells you otherwise. WHAT YOU CAN EXPECT TODAY Some feelings of bloating in the abdomen. Passage of more gas than usual. Spotting of blood in your stool or on the toilet paper. FOLLOW-UP Your doctor will discuss the results of your test with you. SEEK IMMEDIATE MEDICAL ATTENTION IF: There is more than a spotting of blood in your stool. There is abdominal distention (your abdomen is swollen). There is vomiting. You have a temperature over 101.5 F. There is abdominal pain or discomfort that is severe or gets worse throughout the day. Colon Polyps Polyps are tissue growths inside the body. Polyps can grow in many places, including the large intestine (colon). A polyp may be a round bump or a mushroom-shaped growth. You could have one polyp or several. Most colon polyps are noncancerous (benign). However, some colon polyps can become cancerous over time. Finding and removing the polyps early can help prevent this. What are the causes? The exact cause of colon polyps is not known. What increases the risk? You are more likely to develop this condition if you: ? Have a family history of colon cancer or colon polyps. ? Are (more content not included)... Normal [facility] Patient Education - Texton 0 07-17-2021 Patient Education - Text Colonoscopy Care After Surgery Please read the instructions outlined below and refer to this sheet in the next few weeks. These discharge instructions provide you with general information on caring for yourself after you leave the hospital. Your doctor may also give you specific instructions. While your treatment has been planned according to the most current medical practices available, unavoidable complications occasionally occur. If you have any problems or questions after discharge, please call your doctor. ACTIVITY You may resume your regular activity, but move at a slower pace for the next 24 hours. Take frequent rest periods for the next 24 hours. Walking will help get rid of the air and reduce the bloated feeling in your abdomen (belly). No driving for 24 hours (because of the anesthesia (medicine) used during the test). You may shower. Do not sign any important legal documents or operate any machinery for 24 hours (because of the anesthesia used during the test). NUTRITION Drink plenty of fluids. You may resume your normal diet as instructed by your doctor. Begin with a light meal and progress to your normal diet. Heavy or fried foods are harder to digest and may make you feel nauseated (sick to your stomach). Avoid alcoholic beverages for 24 hours or as instructed. MEDICATIONS You may resume your normal medications unless your doctor tells you otherwise. WHAT YOU CAN EXPECT TODAY Some feelings of bloating in the abdomen. Passage of more gas than usual. Spotting of blood in your stool or on the toilet paper. FOLLOW-UP Your doctor will discuss the results of your test with you. SEEK IMMEDIATE MEDICAL ATTENTION IF: There is more than a spotting of blood in your stool. There is abdominal distention (your abdomen is swollen). There is vomiting. You have a temperature over 101.5 F. There is abdominal pain or discomfort that is severe or gets worse throughout the day. Oncology Colon Polyps Polyps are tissue growths inside the body. Polyps can grow in many places, including the large intestine (colon). A polyp may be a round bump or a mushroom-shaped growth. You could have one polyp or several. Most colon polyps are noncancerous (benign). However, some colon polyps can become cancerous over time. Finding and removing the polyps early can help prevent this. What are the causes? The exact cause of colon polyps is not known. What increases the risk? You are more likely to develop this condition if you: ? Have a family history of colon cancer or colon polyps. ? Are older than 50 or older than 45 if you are . ? Have inflammatory bowel disease, such as ulcerative colitis or Crohn's disease. ? Have certain hereditary conditions, such as: ? Familial adenomatous polyposis. ? Gallegos syndrome. ? Turcot syndrome. ? Peutz?Jeghers syndrome. ? Are overweight. ? Smoke cigarettes. ? Do not get enough exercise. ? Drink too much alcohol. ? Eat a diet that is high in fat and red meat and low in fiber. ? Had childhood cancer that was treated with abdominal radiation. What are the signs or symptoms? Most polyps do not cause symptoms. If you have symptoms, they may include: ? Blood coming from your rectum when having a bowel movement. ? Blood in your stool. The stool may look dark red or black. ? Abdominal pain. ? A change in bowel habits, such as constipation or diarrhea. How is this diagnosed? This condition is diagnosed with a colonoscopy. This is a procedure in which a lighted, flexible scope is inserted into the anus and then passed into the colon to examine the area. Polyps are sometimes found when a colonoscopy is done as part of routine cancer screening tests. How is this treated? Treatment for this condition involves removing any polyps that are found. Most polyps can be removed during a colonoscopy. Those polyps will then be tested for cancer. Additional treatment may be needed depending on the results of testing. Follow these instructions at home: Lifestyle ? Maintain a healthy weight, or lose weight if recommended by your health care provider. ? Exercise every day or as told by your health care provider. ? Do not use any products that contain nicotine or tobacco, such as cigarettes and e-cigarettes. If you need help quitting, ask your health care provider. ? If you drink alcohol, limit how much you have: ? 0?1 drink a day for women. ? 0?2 drinks a day for men. ? Be aware of how much alcohol is in your drink. In the [place] one drink equals one 12 oz bottle of beer (355 mL), one 5 oz glass of wine (148 mL), or one 1? oz shot of hard liquor (44 mL). Eating and drinking ? Eat foods that are high in fiber, such as fruits, vegetables, and whole grains. ? Eat foods that are high in calcium and vitamin D, such as milk, cheese, yogurt, eggs, liver, fish, and broccoli. ? Limit foods that are (more content not included)... Normal [facility] Progress Note-Physicianon Progress Note-Physician Patient: GEO TODD Age: 66 years Sex: Male : 1955 Associated Diagnoses: None Author: Jose Romano Jr., DO Postoperative Information Post Operative Note: Post Anesthesia Care Unit. Anesthetic utilized: General. Health Status Allergies: Allergic Reactions (Selected) Severity Not Documented Simvastatin- Muscle pain. Problem list: All Problems Hyperplastic polyp of sigmoid colon / SNOMED CT 818218123 / Confirmed History of DVT of lower extremity / SNOMED CT 3280047808 / Confirmed Tubulovillous adenoma of colon / SNOMED CT 0523474573 / Confirmed HTN (hypertension) / SNOMED CT 9179603809 / Confirmed Gastric ulcer / SNOMED CT 8398408346 / Confirmed GERD (gastroesophageal reflux disease) / SNOMED CT 856293906 / Confirmed Sleep apnea / SNOMED CT 769617490 / Confirmed Hypercholesteremia / SNOMED CT 44775075 / Confirmed Fecal occult blood test positive / SNOMED CT 83779731 / Confirmed Personal history of colonic polyps / SNOMED CT 0226078675 / Confirmed BMI 35.0-35.9,adult / SNOMED CT 605069656 / Confirmed History of colon polyps / SNOMED CT 8305042554 / Confirmed Family history of colon cancer / SNOMED CT 851064229 / Confirmed Resolved: HTN (hypertension) / SNOMED CT [id number] Physical Examination Vital Signs 07/17/2021 12:55 EST Heart Rate Monitored 78 bpm Respiratory Rate Monitored 20 br/min Systolic Blood Pressure 121 mmHg Diastolic Blood Pressure 90 mmHg SpO2 94 % 07/17/2021 12:50 EST Heart Rate Monitored 74 bpm Respiratory Rate Monitored 8 br/min Systolic Blood Pressure 132 mmHg Diastolic Blood Pressure 86 mmHg SpO2 94 % 07/17/2021 12:47 EST Temperature Temporal Artery 36.3 DegC Heart Rate Monitored 77 bpm Respiratory Rate Monitored 13 br/min Systolic Blood Pressure 149 mmHg HI Diastolic Blood Pressure 104 mmHg HI SpO2 97 % Pain assessment: Controlled. General: Alert and oriented, No acute distress, No nausea. Adequate hydration.. Respiratory: Adequate air exchange.. Cardiovascular: stable. Neurologic: Normal sensory. Review / Management Condition: Stable. Assessment Anesthetic outcome No anesthetic complications noted. Plan Transfer/ Discharge: Condition stable. Normal [facility] Comment on above: Result Comment: Elec tronically Signed By: Jose Romano Jr., DO\.br\Date and Time Signed: 07/17/21 14:13 EST Progress Note-Physician Patient: GEO TODD Age: 66 years Sex: Male : 1955 Associated Diagnoses: None Author: Jose Romano Jr., DO Preoperative Information Anesthesia history: Patient History: No prior problems.. Re-eval prior to induction: Inital eval reviewed: No significant interval change. Anesthesia results Review of Systems Constitutional: Negative except as documented in history of present illness. Cardiovascular: Negative except as documented in history of present illness. Respiratory: Negative. Health Status Allergies: Allergic Reactions (Selected) Severity Not Documented Simvastatin- Muscle pain., Allergies (1) Active Reaction simvastatin Muscle pain Current medications: (Selected) Inpatient Medications Ordered Lactated Ringers IV Katie 1000 mL 1,000 mL: 1,000 mL, IV, 100 mL/hr, Routine, Start date 07/17/21 9:34:00 EST, 10 hour(s), Total volume (mL): 1,000 Prescriptions Prescribed polyethylene glycol 3350 with electrolytes Oral Pwdr for Katie 4000 mL (NuLytely): See Instructions, 1 EA, Refill(s) 0, PER PHYSICIAN INSTRUCTIONS. PRIOR TO COLONOSCOPY., Teez.mobi #24, 170.1, cm, 06/15/21 8:58:00 EST, Height/Length Dosing, 106.8, kg, 06/15/21 8:58:00 EST, Weight Dosing Documented Medications Documented Cozaar 100 mg Tab: 100 mg = 1 tab(s), Oral, Daily, Refills(s) 0, High blood pressure Livalo 1 mg oral tablet: 1 mg = 1 tab(s), Oral, Daily, Refills(s) 0 aspirin: 81 mg, Oral, Daily, Ordered by another provider., Refills(s) 0, Prophylaxis omeprazole 40 mg Cap-EC: 40 mg = 1 cap(s), Oral, Daily, Refills(s) 0, Control of stomach acid Histories Past Medical History: Resolved HTN (hypertension) ([id number]): Resolved. Family History: Diverticulitis of colon Father Metastatic cancer Mother Father Procedure history: Colonoscopy ([id number]) on 05/16/2016 at 61 Years. Cholecystectomy ([id number]) on 05/16/2011 at 56 Years. Comments: 12/04/2019 10:14 Nhi Hernandez LPN, Dr. Cataract ([id number]) on 05/16/2009 at 54 Years. Comments: 12/04/2019 10:15 Nhi Hernandez LPN left eye Appendectomy ([id number]) on 05/16/1964 at 9 Years. Social History Social & Psychosocial Habits Alcohol 12/04/2019 Risk Assessment: Denies Alcohol Use 06/15/2021 Use: Current Type: Liquor Frequency: 1-2 times per month Substance Abuse 12/04/2019 Risk Assessment: Denies Substance Abuse Tobacco 06/15/2021 Tobacco Use: Never (less than 100 in l . Physical Examination Respiratory: Lungs are clear to auscultation. Cardiovascular: Regular rhythm. Plan [place] [employer] of Anesthesiologists (ASA) physical status classification: Class III. Anesthetic Preoperative Plan Anesthesia: General. . Anesthetic plan, risks, benefits, and alternatives discussed with the patient and/or family. Patient verbalized understanding. Normal [facility] Comment on above: Result Comment: Elec tronically Signed By: Jose Romano Jr., DO.venkat\Date and Time Signed: 07/17/21 09:35 EST Consent for Procedure/Surger yon 06-16-2021 Consent for Procedure/Surgery [id number]. 00CD:127 Normal [facility] Ambulatory Visit Summaryon 0 06-15-2021 Ambulatory Visit Summary GEO TODD :1955 Visit Date:06/15/2021 Ambulatory Visit Instructions Your Diagnosis History of colon polyps Family history of colon cancer Your Care Team Attending Physician - Qing Curtis CNP Primary Care Physician - Deon Mir MD This Is Your Medications List aspirin polyethylene glycol 3350 with electrolytes (polyethylene glycol 3350 with electrolytes Oral Pwdr for Katie 4000 mL (NuLytely)) Contact prescribing physician if questions or concerns losartan (Cozaar 100 mg Tab) omeprazole (omeprazole 40 mg Cap-EC) pitavastatin (Livalo 1 mg oral tablet) Procedures Performed Colonoscopy (05/16/2016), Cholecystectomy (05/16/2011), Cataract (05/16/2009), Appendectomy (05/16/1964). Discharge Vitals Temperature (Temporal Artery) 35.9 ?C Heart Rate (Peripheral) 73 Respiratory Rate 14 Blood Pressure 148/84 Height 170.1 cm Height 170.1 cm Weight 106.8 kg Weight 106.8 kg BMI 36.91 What to do next You Need to Schedule the Following Appointments Follow Up with MANJIT WILSON, OCTAVIO Fernandez, MED When: Within 2 to 4 weeks Where: [address] [place] [address] Medications What How Much When Instructions New polyethylene glycol 3350 with electrolytes (polyethylene glycol 3350 with electrolytes Oral Pwdr for Katie 4000 mL (NuLytely)) See instructions PER PHYSICIAN INSTRUCTIONS. PRIOR TO COLONOSCOPY. Pickup at [facility]/pharmacy #[id number] Unchanged aspirin 81 Milligram By Mouth Every day Ordered by another provider. Unchanged losartan (Cozaar 100 mg Tab) 1 Tablets By Mouth Every day Contact prescribing physician if questions or concerns Unchanged omeprazole (omeprazole 40 mg Cap-EC) 1 Capsules By Mouth Every day Contact prescribing physician if questions or concerns Unchanged pitavastatin (Livalo 1 mg oral tablet) 1 Tablets By Mouth Every day Contact prescribing physician if questions or concerns Pharmacy Information [facility]/pharmacy #[id number]: [address], [place] [phone] Allergies simvastatin (Muscle pain) Problems Ongoing - Any problem that you are currently receiving treatment for. BMI 35.0-35.9,adult Family history of colon cancer Fecal occult blood test positive Gastric ulcer GERD (gastroesophageal reflux disease) History of colon polyps History of DVT of lower extremity HTN (hypertension) Hypercholesteremia Hyperplastic polyp of sigmoid colon Personal history of colonic polyps Sleep apnea Tubulovillous adenoma of colon Historical - Any problem that you are no longer receiving treatment for. HTN (hypertension) Education Materials Colon Polyps Polyps are tissue growths inside the body. Polyps can grow in many places, including the large intestine (colon). A polyp may be a round bump or a mushroom-shaped growth. You could have one polyp or several. Most colon polyps are noncancerous (benign). However, some colon polyps can become cancerous over time. Finding and removing the polyps early can help prevent this. What are the causes? The exact cause of colon polyps is not known. What increases the risk? You are more likely to develop this condition if you: ? Have a family history of colon cancer or colon polyps. ? Are older than 50 or older than 45 if you are . ? Have inflammatory bowel disease, such as ulcerative colitis or Crohn's disease. ? Have certain hereditary conditions, such as: ? Familial adenomatous polyposis. ? Gallegos syndrome. ? Turcot syndrome. ? Peutz?Jeghers syndrome. ? Are overweight. ? Smoke cigarettes. ? Do not get enough exercise. ? Drink too much alcohol. ? Eat a diet that is high in fat and red meat and low in fiber. ? Had childhood cancer that was treated with abdominal radiation. What are the signs or symptoms? Most polyps do not cause symptoms. If you have symptoms, they may include: ? Blood coming from your rectum when having a bowel movement. ? Blood in your stool. The stool may look dark red or black. ? Abdominal pain. ? A change in bowel habits, such as constipation or diarrhea. How is this diagnosed? This condition is diagnosed with a colonoscopy. This is a procedure in which a lighted, flexible scope is inserted into the anus and then passed into the colon to examine the area. Polyps are sometimes found when a colonoscopy is done as part of routine cancer screening tests. How is this treated? Treatment for this condition involves removing any polyps that are found. Most polyps can be removed during a colonoscopy. Those polyps will then be tested for cancer. Additional treatment may be needed depending on the results of testing. Follow these instructions at home: Lifestyle ? Maintain a healthy weight, or lose weight if recommended by your health care provider. ? Exercise every day or as told by your health care provider. (more content not included)... Normal [facility] Ambulatory Visit Summary GEO TODD :1955 Visit Date:06/15/2021 Ambulatory Visit Instructions Your Diagnosis History of colon polyps Family history of colon cancer Your Care Team Attending Physician - Qing Curtis CNP Primary Care Physician - Deon Mir MD This Is Your Medications List aspirin polyethylene glycol 3350 with electrolytes (polyethylene glycol 3350 with electrolytes Oral Pwdr for Katie 4000 mL (NuLytely)) Contact prescribing physician if questions or concerns losartan (Cozaar 100 mg Tab) omeprazole (omeprazole 40 mg Cap-EC) pitavastatin (Livalo 1 mg oral tablet) Procedures Performed Colonoscopy (05/16/2016), Cholecystectomy (05/16/2011), Cataract (05/16/2009), Appendectomy (05/16/1964). Discharge Vitals Temperature (Temporal Artery) 35.9 ?C Heart Rate (Peripheral) 73 Respiratory Rate 14 Blood Pressure 148/84 Height 170.1 cm Height 170.1 cm Weight 106.8 kg Weight 106.8 kg BMI 36.91 What to do next You Need to Schedule the Following Appointments Follow Up with MANJIT WILSON, OCTAVIO Fernandez, MED When: Within 2 to 4 weeks Where: [address] [place] [address] Medications What How Much When Instructions New polyethylene glycol 3350 with electrolytes (polyethylene glycol 3350 with electrolytes Oral Pwdr for Katie 4000 mL (NuLytely)) See instructions PER PHYSICIAN INSTRUCTIONS. PRIOR TO COLONOSCOPY. Pickup at [facility]/pharmacy #[id number] Unchanged aspirin 81 Milligram By Mouth Every day Ordered by another provider. Unchanged losartan (Cozaar 100 mg Tab) 1 Tablets By Mouth Every day Contact prescribing physician if questions or concerns Unchanged omeprazole (omeprazole 40 mg Cap-EC) 1 Capsules By Mouth Every day Contact prescribing physician if questions or concerns Unchanged pitavastatin (Livalo 1 mg oral tablet) 1 Tablets By Mouth Every day Contact prescribing physician if questions or concerns Pharmacy Information [facility]/pharmacy #[id number]: [address], [place] [id number] [phone] Allergies simvastatin (Muscle pain) Problems Ongoing - Any problem that you are currently receiving treatment for. BMI 35.0-35.9,adult Family history of colon cancer Fecal occult blood test positive Gastric ulcer GERD (gastroesophageal reflux disease) History of colon polyps History of DVT of lower extremity HTN (hypertension) Hypercholesteremia Hyperplastic polyp of sigmoid colon Personal history of colonic polyps Sleep apnea Tubulovillous adenoma of colon Historical - Any problem that you are no longer receiving treatment for. HTN (hypertension) Education Materials Colon Polyps Polyps are tissue growths inside the body. Polyps can grow in many places, including the large intestine (colon). A polyp may be a round bump or a mushroom-shaped growth. You could have one polyp or several. Most colon polyps are noncancerous (benign). However, some colon polyps can become cancerous over time. Finding and removing the polyps early can help prevent this. What are the causes? The exact cause of colon polyps is not known. What increases the risk? You are more likely to develop this condition if you: ? Have a family history of colon cancer or colon polyps. ? Are older than 50 or older than 45 if you are . ? Have inflammatory bowel disease, such as ulcerative colitis or Crohn's disease. ? Have certain hereditary conditions, such as: ? Familial adenomatous polyposis. ? Gallegos syndrome. ? Turcot syndrome. ? Peutz?Jeghers syndrome. ? Are overweight. ? Smoke cigarettes. ? Do not get enough exercise. ? Drink too much alcohol. ? Eat a diet that is high in fat and red meat and low in fiber. ? Had childhood cancer that was treated with abdominal radiation. What are the signs or symptoms? Most polyps do not cause symptoms. If you have symptoms, they may include: ? Blood coming from your rectum when having a bowel movement. ? Blood in your stool. The stool may look dark red or black. ? Abdominal pain. ? A change in bowel habits, such as constipation or diarrhea. How is this diagnosed? This condition is diagnosed with a colonoscopy. This is a procedure in which a lighted, flexible scope is inserted into the anus and then passed into the colon to examine the area. Polyps are sometimes found when a colonoscopy is done as part of routine cancer screening tests. How is this treated? Treatment for this condition involves removing any polyps that are found. Most polyps can be removed during a colonoscopy. Those polyps will then be tested for cancer. Additional treatment may be needed depending on the results of testing. Follow these instructions at home: Lifestyle ? Maintain a healthy weight, or lose weight if recommended by your health care provider. ? Exercise every day or as told by your health care provider. (more content not included)... Normal [facility] Gastroenterology Office/Clin ic Noteon 06-15-2021 Gastroenterology Office/Clinic Note Chief Complaint colonoscopy screening HPI Staff Here for colonoscopy screening. History of Present Illness Patient is a 66-year-old male who presents for colonoscopy. Patient had previous colonoscopy 06/[address] Zelaya that revealed hemorrhoids and hyperplastic polyp in sigmoid colon. Patient with hx. HTN that is managed by his PCP. Family history of colon cancer: Patient's father. Family history of colon polyps: Denies. Personal history of colon cancer: Denies. Personal history of colon polyps: Yes, see above. Takes aspirin daily. During today's visit, patient denies having any GI complaints. Review of Systems PHQ Score Initial Depression Screen Score: 0 ROS - Provider Constitutional: no fever, no chills. Skin: no Jaundice. ENMT: Denies dysphagia and heartburn. Respiratory: no shortness of breath. Cardiovascular: no chest pain. Gastrointestinal: no nausea, no vomiting, no diarrhea, no GI bleeding. Physical Exam Vitals & Measurements T: 35.9 ?C(Temporal Artery) HR: 73(Peripheral) RR: 14 BP: 148/84 HT: 170.1 cm HT: 170.1 cm WT: 106.8 kg WT: 106.8 kg BMI: 36.91 General: Well developed, well nourished, in no acute distress Head: Normocephalic/atraumat ic Lungs: Normal respiratory effort and clear to auscultation Cardio: Regular rate and rhythm, normal S1 and S2, no murmur, no rub Abdomen: Soft, non-distended, non-tender. Normoactive bowel sounds present in all 4 abdominal quadrants, bilaterally. Mental Status: Alert and oriented x3. Normal mood and affect Assessment/Plan BP: 153/97, BP rechecked and improved at 148/84. BP managed by patient's PCP. Patient verbalizes understanding. 1. History of colon polyps (Z86.010: Personal history of colonic polyps) FH colon cancer: Patient's father. Previous colonoscopy 06/[address] Zelaya that revealed hemorrhoids and hyperplastic polyp in sigmoid colon. Ordered Colonoscopy- to be performed by Dr. Saravia. Takes aspirin daily. Educated patient regarding risks of Colonoscopy including, bleeding, perforation. Anesthesia to review potential risks of anesthesia with patient. Verbalizes understanding and wishes to proceed with Colonoscopy. Ordered: Colonoscopy (Hospital Procedure) Office Visit Level 3 New 10507 2. Family history of colon cancer (Z80.0: Family history of malignant neoplasm of digestive organs) Same as above plan of care. See # 1. Ordered: Colonoscopy (Hospital Procedure) Office Visit Level 3 New 00113 Orders: polyethylene glycol 3350 with electrolytes, See Instructions, 1 EA, Refill(s) 0, PER PHYSICIAN INSTRUCTIONS. PRIOR TO COLONOSCOPY., [id number], 170.1, cm, 06/15/21 8:58:00 EST, Height/Length Dosing, 106.8, kg, 06/15/21 8:58:00 EST, Weight Dosing Follow-up With When Contact Information MANJIT WILSON, OCTAVIO Fernandez, MED Within 2 to 4 weeks [address] [place] [address] Additional Instructions: Patient Education Colon Polyps Problem List/Past Medical History Ongoing BMI 35.0-35.9,adult Family history of colon cancer Fecal occult blood test positive Gastric ulcer GERD (gastroesophageal reflux disease) History of colon polyps History of DVT of lower extremity HTN (hypertension) Hypercholesteremia Hyperplastic polyp of sigmoid colon Personal history of colonic polyps Sleep apnea Tubulovillous adenoma of colon Historical HTN (hypertension) Procedure/Surgical History Colonoscopy (05/16/2016), Cholecystectomy (05/16/2011), Cataract (05/16/2009), Appendectomy (05/16/1964). Medications aspirin, 81 mg, Oral, Daily Cozaar 100 mg Tab, 100 mg= 1 tab(s), Oral, Daily Livalo 1 mg oral tablet, 1 mg= 1 tab(s), Oral, Daily omeprazole 40 mg Cap-EC, 40 mg= 1 cap(s), Oral, Daily polyethylene glycol 3350 with electrolytes Oral Pwdr for Katie 4000 mL (NuLytely), See Instructions Allergies simvastatin (Muscle pain) Social History Alcohol - Denies Alcohol Use, 12/04/2019 Current, Liquor, 1-2 times per month, 06/15/2021 Substance Abuse - Denies Substance Abuse, 12/04/2019 Tobacco Never (less than 100 in lifetime) Tobacco Use:., 06/15/2021 Family History Diverticulitis of colon: Father. Metastatic cancer: Mother and Father. Normal [facility] Comment on above: Result Comment: Elec tronically Signed By: Qing Curtis CNP\.br\Date and Time Signed: 06/15/21 09:10 EST Patient Educationon 06-15-19 22 Patient Education Oncology Colon Polyps Polyps are tissue growths inside the body. Polyps can grow in many places, including the large intestine (colon). A polyp may be a round bump or a mushroom-shaped growth. You could have one polyp or several. Most colon polyps are noncancerous (benign). However, some colon polyps can become cancerous over time. Finding and removing the polyps early can help prevent this. What are the causes? The exact cause of colon polyps is not known. What increases the risk? You are more likely to develop this condition if you: ? Have a family history of colon cancer or colon polyps. ? Are older than 50 or older than 45 if you are . ? Have inflammatory bowel disease, such as ulcerative colitis or Crohn's disease. ? Have certain hereditary conditions, such as: ? Familial adenomatous polyposis. ? Gallegos syndrome. ? Turcot syndrome. ? Peutz?Jeghers syndrome. ? Are overweight. ? Smoke cigarettes. ? Do not get enough exercise. ? Drink too much alcohol. ? Eat a diet that is high in fat and red meat and low in fiber. ? Had childhood cancer that was treated with abdominal radiation. What are the signs or symptoms? Most polyps do not cause symptoms. If you have symptoms, they may include: ? Blood coming from your rectum when having a bowel movement. ? Blood in your stool. The stool may look dark red or black. ? Abdominal pain. ? A change in bowel habits, such as constipation or diarrhea. How is this diagnosed? This condition is diagnosed with a colonoscopy. This is a procedure in which a lighted, flexible scope is inserted into the anus and then passed into the colon to examine the area. Polyps are sometimes found when a colonoscopy is done as part of routine cancer screening tests. How is this treated? Treatment for this condition involves removing any polyps that are found. Most polyps can be removed during a colonoscopy. Those polyps will then be tested for cancer. Additional treatment may be needed depending on the results of testing. Follow these instructions at home: Lifestyle ? Maintain a healthy weight, or lose weight if recommended by your health care provider. ? Exercise every day or as told by your health care provider. ? Do not use any products that contain nicotine or tobacco, such as cigarettes and e-cigarettes. If you need help quitting, ask your health care provider. ? If you drink alcohol, limit how much you have: ? 0?1 drink a day for women. ? 0?2 drinks a day for men. ? Be aware of how much alcohol is in your drink. In the [place] one drink equals one 12 oz bottle of beer (355 mL), one 5 oz glass of wine (148 mL), or one 1? oz shot of hard liquor (44 mL). Eating and drinking ? Eat foods that are high in fiber, such as fruits, vegetables, and whole grains. ? Eat foods that are high in calcium and vitamin D, such as milk, cheese, yogurt, eggs, liver, fish, and broccoli. ? Limit foods that are high in fat, such as fried foods and desserts. ? Limit the amount of red meat and processed meat you eat, such as hot dogs, sausage, grewal, and lunch meats. General instructions ? Keep all follow-up visits as told by your health care provider. This is important. ? This includes having regularly scheduled colonoscopies. ? Talk to your health care provider about when you need a colonoscopy. Contact a health care provider if: ? You have new or worsening bleeding during a bowel movement. ? You have new or increased blood in your stool. ? You have a change in bowel habits. ? You lose weight for no known reason. Summary ? Polyps are tissue growths inside the body. Polyps can grow in many places, including the colon. ? Most colon polyps are noncancerous (benign), but some can become cancerous over time. ? This condition is diagnosed with a colonoscopy. ? Treatment for this condition involves removing any polyps that are found. Most polyps can be removed during a colonoscopy. This information is not intended to replace advice given to you by your health care provider. Make sure you discuss any questions you have with your health care provider. Document Released: 01/26/2005 Document Revised: 08/17/2018 Document Reviewed: 08/17/2018 [employer] Patient Education ? 2019 [employer] [facility] Encounters Encounter Date Encounter Type Care Provider Facility Start: 05-13-[address] [facility] Start: 04-12-2023 End: 04-13-2023 [facility]: 01-04-2023 End: 01-04-2023 ambulatory JENNIFER [facility] Start: 10-19-2022 End: 10-19-2022 ambulatory OCTAVIANO GUTIERREZ [facility] Start: 08-23-2022 End: 08-23-2022 ambulatory [facility] Start: 07-30-2022 End: 07-30-2022 Emergency department patient visit MAURA DAN [facility] Start: 06-28-2022 End: 06-29-[address] DEON MIR . Facility:[facility] Start: 06-03-2022 End: 09-23-2022 ambulatory JAVAN ANDERSON Facility:[facility] Start: 05-19-2022 End: 05-20-2022 ambulatory JAVAN ANDERSON Facility:[facility] Start: 04-14-2022 End: 04-15-[address] DEON MIR . Facility:[facility] Start: 04-05-2022 End: 04-06-[address] DEON MIR . Facility:[facility] Procedures Date Procedure Procedure Detail Performing Clinician Start: 04-05-2022 PSA screening JAVAN ORELLANA Comment on above: Performed By: #### [facility] ####[facility] [address] [place], [place] [address]Lz. Tiny Miranda Payers Date Payer Category Payer Medicare [id number] 1961 Unknown [id number] 1955 Unknown [id number] 2.16.84 [id number] 1955 Unknown [id number] 2.16.84 [id number] 1955 Unknown [id number] 2.16.84 [id number] 1955 Unknown [id number] 2.16.84 [id number] 1955 Unknown [id number] 2.16.84 [id number] Clinical Note 05-13-2023 Note Date & Type Note Facility 05-13-2023 Note Patient: Geo romero Procedure Information Date/Time: 05/13/23829 Procedure: Coronary angiography (Left) Location: [facility] / [facility] (Cath) Providers: Brissa Kang MD Clinical information reviewed: Allergies Meds Physical Exam Airway Mallampati: III Cardiovascular - normal exam Dental Pulmonary - normal exam Abdominal - normal exam Anesthesia Plan ASA 3 other ( conscious sedation) Anesthetic plan and risks discussed with patient. Use of blood products discussed with patient who consented to blood products. Plan discussed with attending. Additional Equipment Requests [facility] Progress note 04-12-2023 Note Date & Type Note Facility 04-12-2023 Note Cardiovascular Medic [facility] SUBJECTIVE Chief Complaint Patient presents with Shortness of Breath Coronary Artery Disease Geo Todd is a 67 y.o. male here for follow-up. HPI PMHx: GERD, Pre-Diabetes, HTN, HLD, and CAD s/p coronary artery bypass grafting x 3, ROBERSON-LAD, SVG-OM, SVG-PDA with post op Afib. He has started having worsening SOB over the last couple of months. He feels SOB with minimal exertion. He hasn't noticed any leg swelling. He denies CP, orthopnea, PND, palpitations, dizziness/LH, syncope. His weight is up ~14#. He thinks it is related to food intake. His PCP recently started him on diclofenac and Zanaflex for his back pain. Patient Active Problem List Diagnosis Cardiovascular stress test abnormal Hypertension Mixed hyperlipidemia Other chest pain Triple vessel coronary artery disease Obesity GERD (gastroesophageal reflux disease) Respiratory insufficiency Postoperative atrial fibrillation (CMS/HCC) Adenomatous polyp of colon Anticoagulated on Coumadin Benign neoplasm of colon Bilateral arm weakness Cholecystolithiasis DVT (deep venous thrombosis) (CMS/HCC) Family history of malignant neoplasm of colon History of colonic polyps History of deep venous thrombosis Hyperplastic polyp of intestine Left foot drop Leg pain Occult blood in stools Past Medical History: Diagnosis Date Cardiovascular stress test abnormal 04/16/2022 GERD (gastroesophageal reflux disease) Hypertension Mixed hyperlipidemia 04/16/2022 Obesity 04/20/2022 Primary hypertension 04/16/2022 Sleep apnea Triple vessel coronary artery disease 04/20/2022 Family History Problem Relation Name Age of Onset Heart attack Maternal Grandfather Heart attack Paternal Grandfather Social History Tobacco Use Smoking status: Never Smokeless tobacco: Never Substance Use Topics Alcohol use: Yes Comment: occasional Drug use: Not Currently Allergies Allergen Reactions Jhllejo-Fbt-Wfs Reductase Inhibitors ROS Cardiovascular: Positive for dyspnea on exertion. Musculoskeletal: Positive for back pain and joint pain. Gastrointestinal: Positive for heartburn. Neurological: Positive for light-headedness. All other systems reviewed and are negative. OBJECTIVE Visit Vitals BP 142/80 (BP Location: Right arm, Patient Position: Sitting) Pulse 65 Ht 1.702 m (5' 7 ) Wt 111 kg (245 lb) SpO2 97% BMI 38.37 kg/m??? Smoking Status Never BSA 2.29 m??? Medications: Current Outpatient Medications: aspirin 81 mg chewable tablet, Chew 1 tablet (81 mg) in the morning., Disp: 90 tablet, Rfl: 3 omeprazole (PriLOSEC) [address] capsule, Take 40 mg by mouth in the morning., Disp: , Rfl: diclofenac (Voltaren) 75 mg EC tablet, Take 75 mg by mouth in the morning and at bedtime., Disp: , Rfl: ezetimibe (Zetia) 10 mg tablet, Take 1 tablet (10 mg) by mouth in the morning., Disp: 90 tablet, Rfl: 3 losartan (Cozaar) 50 mg tablet, Take 1 tablet (50 mg) by mouth in the morning., Disp: 90 tablet, Rfl: 3 metoprolol tartrate (Lopressor) 25 mg tablet, Take 0.5 tablets (12.5 mg) by mouth in the morning and at bedtime., Disp: 90 tablet, Rfl: 3 pravastatin (Pravachol) 20 mg tablet, Take 1 tablet (20 mg) by mouth at bedtime., Disp: 90 tablet, Rfl: 3 tiZANidine (Zanaflex) 4 mg tablet, Take 8 mg by mouth at bedtime., Disp: , Rfl: Physical Exam Constitutional: Appearance: Normal appearance. He is obese. HENT: Head: Normocephalic and atraumatic. Right Ear: External ear normal. Left Ear: External ear normal. Eyes: Extraocular Movements: Extraocular movements intact. Pupils: Pupils are equal, round, and reactive to light. Neck: Vascular: No carotid bruit. Cardiovascular: Rate and Rhythm: Normal rate and regular rhythm. Pulses: Normal pulses. Heart sounds: Normal heart sounds. Pulmonary: Effort: Pulmonary effort is normal. Breath sounds: Normal breath sounds. Abdominal: General: Bowel sounds are normal. Palpations: Abdomen is soft. Musculoskeletal: General: Normal range of motion. Cervical back: Neck supple. Right lower leg: Edema present. Left lower leg: Edema present. Comments: +1 BLE ankle edema Skin: General: Skin is warm and dry. Neurological: General: No focal deficit present. Mental Status: He is alert and oriented to person, place, and time. Psychiatric: Mood and Affect: Mood normal. Behavior: Behavior normal. Thought Content: Thought content normal. Judgment: Judgment normal. Labs: Admission on 07/30/2022, Discharged on 07/30/2022 Component Date Value Ref Range Status Sodium 07/30/2022 138 136 - 145 mmol/L Final Potassium 07/30/2022 4.5 3.5 - 5.1 mmol/L Final Chloride 07/30/2022 107 98 - 107 mmol/L Final CO2 07/30/2022 23 21 - 31 mmol/L Final BUN 07/30/2022 19 7 - 25 mg/dL Final Creatinine 07/30/2022 1.05 0.70 - 1.30 mg/dL Final Glucose 07/30/2022 88 70 - 100 mg/dL Final Calcium (more content not included)... [facility] Progress note 04-12-2023 Note Date & Type Note Facility 04-12-2023 Note Patient here c/o inc reased SOB and lightheadedness. He denies chest pain, LE edema, and palpitations. Only has SOB with minimal exertion, not rest. Had loop recorder placed in Dec 2022. Review of Systems Cardiovascular: Positive for dyspnea on exertion. Musculoskeletal: Positive for back pain and joint pain. Gastrointestinal: Positive for heartburn. Neurological: Positive for light-headedness. All other systems reviewed and are negative. [facility] Progress note 01-04-2023 Note Date & Type Note Facility 01-04-2023 Note [place] Electrophysiology Consult Note Reason for visit: wound check s/p loop implant 01/04/23: Patient for follow-up s/p loop implant for wound check. Insertion site appears to be healing well with no concerns for ecchymosis, drainage, hematoma. Patient denies aches, chills, fever. Loop data review - no arrhythmia 10/19/22 Patient has come for follow-up and he is doing well. he has not had any further episodes of dizziness lightheadedness or A-fib. he is already off anticoagulation and is only on aspirin. Event monitor placed from 1420 23-5 02/02/2023 did not reveal any episodes of A-fib V. tach or SVT. Prior HPI: Geo Todd is a 67 y.o. year old with past medical history of GERD, Pre-Diabetes, HTN, HLD, and CAD s/p coronary artery bypass grafting x 3, ROBERSON-LAD, SVG-OM, SVG-PDA with post op Afib. Who was offered a 30d event monbitor for AF surveillence. This revealed episode of AV block of non conduced atrial beats which lasted for 2seconds. Pt denies any symptoms. Pt states he has been on the event monitor for 2.5 weeks. Pt states he developed A-fib after the surgery and is on DOAc. Pt has been at rehab prior to this this AM. No issues reported otherwise. Event monitor strip on 07/30/22 11am AV block noted. Pr PMH: Past Medical History: Diagnosis Date Cardiovascular stress test abnormal 04/16/2022 GERD (gastroesophageal reflux disease) Hypertension Mixed hyperlipidemia 04/16/2022 Obesity 04/20/2022 Primary hypertension 04/16/2022 Sleep apnea Triple vessel coronary artery disease 04/20/2022 PSH: Past Surgical History: Procedure Laterality Date APPENDECTOMY CHOLECYSTECTOMY LAUREN SH: Social Determinants of Health Tobacco Use: Low Risk (07/30/2022) Patient History Smoking Tobacco Use: Never Smokeless Tobacco Use: Never Passive Exposure: Not on file Alcohol Use: Not on file Financial Resource Strain: Not on file Food Insecurity: Not on file Transportation Needs: Not on file Physical Activity: Not on file Stress: Not on file Social Connections: Not on file Intimate Partner Violence: Not on file Depression: Not on file Housing Stability: Not on file Allergies: Allergies Allergen Reactions Adxvcij-Fuw-Vlu Reductase Inhibitors Weight: No weight available Visit Vitals Smoking Status Never Meds: Current Outpatient Medications on File Prior to Visit Medication Sig Dispense Refill aspirin 81 mg chewable tablet Chew 1 tablet (81 mg) in the morning. 90 tablet 3 ezetimibe (Zetia) 10 mg tablet Take 1 tablet (10 mg) by mouth in the morning. 90 tablet 3 losartan (Cozaar) 50 mg tablet Take 1 tablet (50 mg) by mouth in the morning. 30 tablet 11 metoprolol tartrate (Lopressor) 25 mg tablet Take 0.5 tablets (12.5 mg) by mouth in the morning and at bedtime. 90 tablet 3 omeprazole (PriLOSEC) [address] capsule Take 40 mg by mouth in the morning. pravastatin (Pravachol) 20 mg tablet Take 1 tablet (20 mg) by mouth at bedtime. 90 tablet 3 No current facility-administered medications on file prior to visit. ROS: Cardio Basic Cardiovascular Symptoms: no lightheadedness, no leg edema, no syncope, no orthopnea, no PND, no claudication, Constitutional Constitutional: no fever, no night sweats, no significant weight gain, no significant weight loss, no exercise intolerance Eyes Eyes: no dry eyes, no irritation, no vision change ENMT Ears: no difficulty hearing, no ear pain Nose: no frequent nosebleeds, Mouth/Throat: no sore throat, no bleeding gums, no snoring, no dry mouth, no mouth ulcers, no oral abnormalities, no teeth problems Respiratory Respiratory: no cough, no wheezing, no coughing up blood, no sleep apnea Musculoskeletal Musculoskeletal: no muscle aches, no muscle weakness, joint pain+, no back pain, no swelling in the extremities Integumentary Skin no rash, no ulcer, no varicosities, no discoloration, no pruritus Neurologic Neurologic: no loss of consciousness, no weakness, no numbness, no seizures, no dizziness, no headaches Psychiatric Psych: no depression, feeling safe in relationship, no alcohol abuse, Hematologic/Lymphatic Hematologic/Lymphatic no swollen glands, no bruising Physical Exam: Constitutional General Appearance: well-nourished, well-developed, appears stated age Level of Distress: comfortable Psychiatric Mental Status: alert, normal affect Orientation: oriented to time, place, and person Insight: good judgement Eyes Lids and Conjunctivae: non-injected, no xanthelasma ENMT Ears: no lesions on external ear Nose: no lesions on external nose Oropharynx: no cyanosis, no pallor Neck Neck: supple, trachea midline Carotid Arteries: bilateral normal upstroke, no bruits Jugular Veins: normal jugular venous pressure Thyroid: not enlarged Lungs Respiratory Effort: unlabored Chest Exam: normal curvature, no thoracic deformity Auscultation: clear, no wheezing, no rales, no rhonch (more content not included)... [facility] Progress note 10-21-2022 Note Date & Type Note Facility 10-21-2022 Note [facility] Progress note 10-19-2022 Note Date & Type Note Facility 10-19-2022 Note Patient here for [facility] up event monitor per Dr. Kang. Gets intermittent chest heaviness, and a little SOB - sometimes w/wo exertion. Denies palpitations and lightheadedness. Review of Systems Cardiovascular: Positive for chest pain and dyspnea on exertion. Respiratory: Positive for shortness of breath. Gastrointestinal: Positive for heartburn. All other systems reviewed and are negative. [place] [facility]rophysiology Consult Note Reason for visit: Event monitor 10/19/22 Patient has come for follow-up and he is doing well. he has not had any further episodes of dizziness lightheadedness or A-fib. he is already off anticoagulation and is only on aspirin. Event monitor placed from 1420 23-5 02/02/2023 did not reveal any episodes of A-fib V. tach or SVT. Prior HPI: Geo Todd is a 67 y.o. year old with past medical history of GERD, Pre-Diabetes, HTN, HLD, and CAD s/p coronary artery bypass grafting x 3, ROBERSON-LAD, SVG-OM, SVG-PDA with post op Afib. Who was offered a 30d event monbitor for AF surveillence. This revealed episode of AV block of non conduced atrial beats which lasted for 2seconds. Pt denies any symptoms. Pt states he has been on the event monitor for 2.5 weeks. Pt states he developed A-fib after the surgery and is on DOAc. Pt has been at rehab prior to this this AM. No issues reported otherwise. Event monitor strip on 07/30/22 11am AV block noted. Pr PMH: Past Medical History: Diagnosis Date Cardiovascular stress test abnormal 04/16/2022 GERD (gastroesophageal reflux disease) Hypertension Mixed hyperlipidemia 04/16/2022 Obesity 04/20/2022 Primary hypertension 04/16/2022 Sleep apnea Triple vessel coronary artery disease 04/20/2022 PSH: Past Surgical History: Procedure Laterality Date APPENDECTOMY CHOLECYSTECTOMY LAUREN SH: Social Determinants of Health Tobacco Use: Low Risk Smoking Tobacco Use: Never Smokeless Tobacco Use: Never Passive Exposure: Not on file Alcohol Use: Not on file Financial Resource Strain: Not on file Food Insecurity: Not on file Transportation Needs: Not on file Physical Activity: Not on file Stress: Not on file Social Connections: Not on file Intimate Partner Violence: Not on file Depression: Not on file Housing Stability: Not on file Allergies: Allergies Allergen Reactions Efuvfcy-Cxw-Vas Reductase Inhibitors Weight: 105kg Visit Vitals BP 130/85 (BP Location: Left arm, Patient Position: Sitting) Pulse 65 Ht 1.702 m (5' 7 ) Wt 105 kg (231 lb) SpO2 99% BMI 36.18 kg/m??? Smoking Status Never BSA 2.23 m??? Meds: Current Outpatient Medications on File Prior to Visit Medication Sig Dispense Refill aspirin 81 mg chewable tablet Chew 1 tablet (81 mg) in the morning. 90 tablet 3 ezetimibe (Zetia) 10 mg tablet Take 1 tablet (10 mg) by mouth in the morning. 90 tablet 3 losartan (Cozaar) 50 mg tablet Take 1 tablet (50 mg) by mouth in the morning. 30 tablet 11 metoprolol tartrate (Lopressor) 25 mg tablet Take 0.5 tablets (12.5 mg) by mouth in the morning and at bedtime. 90 tablet 3 omeprazole (PriLOSEC) [address] capsule Take 40 mg by mouth in the morning. pravastatin (Pravachol) 20 mg tablet Take 1 tablet (20 mg) by mouth at bedtime. 90 tablet 3 No current facility-administered medications on file prior to visit. ROS: Cardio Basic Cardiovascular Symptoms: no lightheadedness, no leg edema, no syncope, no orthopnea, no PND, no claudication, Constitutional Constitutional: no fever, no night sweats, no significant weight gain, no significant weight loss, no exercise intolerance Eyes Eyes: no dry eyes, no irritation, no vision change ENMT Ears: no difficulty hearing, no ear pain Nose: no frequent nosebleeds, Mouth/Throat: no sore throat, no bleeding gums, no snoring, no dry mouth, no mouth ulcers, no oral abnormalities, no teeth problems Respiratory Respiratory: no cough, no wheezing, no coughing up blood, no sleep apnea Musculoskeletal Musculoskeletal: no muscle aches, no muscle weakness, joint pain+, no back pain, no swelling in the extremities Integumentary Skin no rash, no ulcer, no varicosities, no discoloration, no pruritus Neurologic Neurologic: no loss of consciousness, no weakness, no numbness, no seizures, no dizziness, no headaches Psychiatric Psych: no depression, feeling safe in relationship, no alcohol abuse, Hematologic/Lymphatic Hematologic/Lymphatic no swollen glands, no bruising Physical Exam: Constitutional General Appearance: well-nourished, well-developed, appears stated age Level of Distress: comfortable Psychiatric Mental Status: alert, normal affect Orientation: oriented to time, place, and person Insight: good judgement Eyes Lids and Conjunctivae: non-injected, no xanthelasma ENMT Ears: no lesions on external ear Nose: no lesions on external nose Oropharynx: no cyanosis, no pallor Neck Neck: supple, trachea midline (more content not included)... [facility] Progress note 08-23-2022 Note Date & Type Note Facility 08-23-2022 Note [place] [facility] - [facility] Subjective Geo Todd is a 67 y.o. year old male patient being seen for 3 mo follow up event monitor. Wants to know if he can stop Eliquis. Still has some chest soreness s/p CABG. Denies SOB w/wo exertion. Patient Active Problem List Diagnosis Cardiovascular stress test abnormal Hypertension Mixed hyperlipidemia Other chest pain Triple vessel coronary artery disease Obesity GERD (gastroesophageal reflux disease) Respiratory insufficiency Postoperative atrial fibrillation (CMS/HCC) Adenomatous polyp of colon Anticoagulated on Coumadin Benign neoplasm of colon Bilateral arm weakness Cholecystolithiasis DVT (deep venous thrombosis) (CMS/HCC) Family history of malignant neoplasm of colon History of colonic polyps History of deep venous thrombosis Hyperplastic polyp of intestine Left foot drop Leg pain Occult blood in stools Family History Problem Relation Name Age of Onset Heart attack Maternal Grandfather Heart attack Paternal Grandfather Social History Tobacco Use Smoking status: Never Smokeless tobacco: Never Substance Use Topics Alcohol use: Yes Comment: occasional Drug use: Not Currently HPI Geo is seen in follow-up. He is a 67-year-old man with prior history of hypertension, hyperlipidemia and prediabetes, whom I had seen previously in April 2022 for chest pain and abnormal stress test. Cardiac catheterization 04/20/2022 showed severe calcific three-vessel coronary disease. He was admitted to the hospital for bypass surgery. On 04/21/2022 he underwent bypass surgery with ROBERSON to LAD, saphenous venous graft to the ramus and PDA branch of the RCA. Post bypass surgery he developed atrial fibrillation. He was maintained on anticoagulation with Eliquis. he was seen in follow-up in May 2022 and he was given an event monitor to rule out recurrence of atrial fibrillation. This showed possible episode of third-degree AV block with junctional escape rhythm. He was evaluated in the emergency room on 07/30/[address] Octaviano Gutierrez. Per Dr. Gutierrez's review of the event monitor he had an episode of AV block and nonconducted atrial beats lasted 2 seconds. The patient was asymptomatic. Today he is seen in follow-up in the office. He reports that he has been doing well. He no longer has anginal symptoms. He has heartburn when he eats. No dyspnea. No leg swelling. Review of Systems Cardiovascular: Negative for chest pain. Gastrointestinal: Positive for heartburn. All other systems reviewed and are negative. Objective Visit Vitals BP (!) 156/92 (BP Location: Right arm, Patient Position: Sitting) Pulse 58 Ht 1.702 m (5' 7 ) Wt 103 kg (228 lb) SpO2 98% BMI 35.71 kg/m??? Smoking Status Never BSA 2.21 m??? Physical Exam Constitutional: Appearance: He is well-developed. He is obese. He is not ill-appearing. HENT: Head: Normocephalic and atraumatic. Nose: Nose normal. Eyes: General: No scleral icterus. Pupils: Pupils are equal, round, and reactive to light. Neck: Thyroid: No thyromegaly. Vascular: No JVD. Cardiovascular: Rate and Rhythm: Normal rate and regular rhythm. Pulses: Radial pulses are 2+ on the right side and 2+ on the left side. Heart sounds: Normal heart sounds. No murmur heard. No friction rub. No gallop. Pulmonary: Effort: Pulmonary effort is normal. No respiratory distress. Breath sounds: Normal breath sounds. No wheezing or rales. Chest: Chest wall: No tenderness. Abdominal: General: Bowel sounds are normal. There is no distension. Palpations: Abdomen is soft. Tenderness: There is no abdominal tenderness. Musculoskeletal: General: No swelling. Cervical back: Neck supple. Skin: General: Skin is warm and dry. Neurological: General: No focal deficit present. Mental Status: He is alert and oriented to person, place, and time. Psychiatric: Mood and Affect: Mood normal. Behavior: Behavior is cooperative. Judgment: Judgment normal. Allergies Allergies Allergen Reactions Pqxtzfg-Vbk-Uhp Reductase Inhibitors Medications Current Outpatient Medications: ezetimibe (Zetia) 10 mg tablet, Take 1 tablet (10 mg) by mouth in the morning., Disp: 90 tablet, Rfl: 3 metoprolol tartrate (Lopressor) 25 mg tablet, Take 0.5 tablets (12.5 mg) by mouth in the morning and at bedtime., Disp: 90 tablet, Rfl: 3 omeprazole (PriLOSEC) [address] capsule, Take 40 mg by mouth in the morning., Disp: , Rfl: pravastatin (Pravachol) 20 mg tablet, Take 1 tablet (20 mg) by mouth at bedtime., Disp: 90 tablet, Rfl: 3 aspirin 81 mg chewable tablet, Chew 1 tablet (81 mg) in the morning., Disp: 90 tablet, Rfl: 3 losartan (Cozaar) 50 mg tablet, Take 1 tablet (50 mg) by mouth in the morning., Disp: 30 tablet, Rfl: 11 Recent Labs Admission on 07/30/2022, Discharged on 07/30/2022 Component Date Value Sodium 07/30/2022 138 Potassium 07/30/2022 4. (more content not included)... [facility] Progress note 08-02-2022 Note Date & Type Note Facility 08-02-2022 Note Note in erro. Please see marilyn yanezus on 07/30/22 [facility] History and physical note 07-20-2021 Note Date & Type Note Facility 07-20-2021 Note [id number] [id number] [facility] Summary Purpose Family History No Family History Records FoundNo Family History Records FoundNo Family History Records Found Advance Directives No Advanced Directives Records FoundNo Advanced Directives Records FoundNo Advanced Directives Records Found Additional Source Comments (unrecognized sect ion and content) No Status Records FoundNo Status Records FoundNo Status Records Found INFORMATION SOURCE (unrecogn ized section and content) DATE CREATED AUTHOR 09/09/2021 [facility] DATE CREATED AUTHOR AUTHOR'S ORGANIZ ATION 09/24/[address] [facility] DATE CREATED AUTHOR AUTHOR'S ORGANIZ ATION 06/04/2023 [facility] FOR RECORDS PERTAINING TO PATIENTS WHO ARE OR HAVE BEEN ENROLLED IN A CHEMICAL DEPENDENCY/SUBSTANCEABUSE PROGRAM, SOME INFORMATION MAY BE OMITTED. This clinical summary was aggregated from multiple sources. Caution should be exercised in using it in the provision of clinical care. This summary normalizes information from multiple sources, and as a consequence, information in this document may materially change the coding, format and clinical context of patient data. In addition, data may be omitted in some cases. CLINICAL DECISIONS SHOULD BE BASED ON THE PRIMARY CLINICAL RECORDS. [facility] [employer] [facility]. provides no warranty or guarantee of the accuracy or completeness of information in this document.
[2023-06-13 16:48] LABS: Anion Gap 11.5; BUN Creatinine Ratio 10.7; Calcium 8.8 mg/dL (8.5-10.1); Carbon Dioxide 30.1 mmol/L (21.0-32.0); Chloride 104 mmol/L (98-107); Estimated GFR (African America >60 (>=60); Estimated GFR (Non-African Ame 54 (>=60); Glucose 92 mg/dL (74-106); Potassium 4.6 mmol/L (3.5-5.1); Sodium 141 mmol/L (136-145)
== END 2023-06-13 15:42 | disposition home or self-care (01) ==
LOC: LAB 15:42
PROVIDERS: PCP Family Medicine; Visit Provider Internal Medicine Interventional Cardiology
DX: I50.33 Acute on chronic diastolic (congestive) heart failure (principal); I50.21 Acute systolic (congestive) heart failure
CPT/HCPCS: 36415; 80048; 83880

== ENCOUNTER 2024-01-07 10:47 | Outpatient (OUT) | payer MEDICARE, OTHER, SELFPAY ==
--- OUTSIDE RECORDS SUMMARY | 2024-01-07 10:49 | XMS_ITS | CCD ---
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 Role Phone JUSTIN MOHAMASuni Admitting Unavailable HOY ., DR CHAVARRIA Primary Care Unavailable ALGHOTHANI, MOHAMAD Attending Unavailable ALGHOTHANI, MOHAMAD Consulting Unavailable HOY ., DR CHAVARRIA Consulting Unavailable HOY ., DR CHAVARRIA Primary Care Unavailable HOY ., DR CHAVARRIA Admitting Unavailable HOY ., DR CHAVARRIA Attending Unavailable ALGHOTHANI, MOHAMAD Admitting Unavailable Kush Garsia Consulting Unavailable HOY ., DR CHAVARRIA Primary Care Unavailable ALGHOTHANI, MOHAMAD Attending Unavailable ALGHOTHANI, MOHAMAD Consulting Unavailable HOY ., DR CHAVARRIA Primary Care Unavailable HOY ., DR CHAVARRIA Admitting Unavailable HOY ., DR CHAVARRIA Attending Unavailable HOY ., DR CHAVARRIA Consulting Unavailable EDEN [place], DR NARCISO Walker Consulting Unavailable HOY ., DR CHAVARRIA Primary Care Unavailable HOY ., DR CHAVARRIA Admitting Unavailable HOY ., DR CHAVARRIA Attending Unavailable HOY ., DR CHAVARRIA Consulting Unavailable MONIE, BERTA Referring Unavailable JOSE GUADALUPE ROTHMAN Attending Unavailable ELDERUKARBELBRISSA Attending Unavailable MONIE, BERTA Referring Unavailable MOUKARBELBRISSA Attending Unavailable MOUKARBEL BRISSA Admitting Unavailable MONIE, BERTA Referring Unavailable MONIE, BERTA Referring Unavailable MONIE, BERTA Referring Unavailable MONIE, BERTA Referring Unavailable MOUKARBEL, BRISSA Referring Unavailable JENNIFER TEJEDA Attending Unavailable Allergies Allergy Classification Reported Allergen(s) Allergy Type Date of Onset Reaction(s) Facility (1 source) Amino Acids Drug Allergy 6 [facility] Repository (1 source) Hmg-Coa Reductase Inhibitors (Statins); Translations: [TYVHNYO-ECY-IBA REDUCTASE INHIBITORS] Propensity to adverse reactions to drug (disorder) 2 [facility] Repository Problems Active Problems Problem Classification Problem Date Documented Date Episodic/Chronic Cardiac dysrhythmias (2 sources) Unspecified atrial fibrillation; Translations: [Unspecified atrial fibrillation] Onset: 04-24-2022 Chronic Cardiac dysrhythmias (2 sources) Palpitations; Translations: [Palpitations] Onset: 11-07-2023 Episodic Conduction disorders (2 sources) Other atrioventricular block; Translations: [Other atrioventricular block] Onset: 06-17-2023 Chronic Congestive heart failure; nonhypertensive (3 sources) Unspecified diastolic (congestive) heart failure; Translations: [Acute on chronic diastolic (congestive) heart failure] Onset: 04-07-2022 Chronic Coronary atherosclerosis and other heart disease (2 sources) Atherosclerotic heart disease of [place] coronary artery without angina pectoris; Translations: [Atherosclerotic heart disease of [place] coronary artery without angina pectoris] Onset: 05-11-2023 [...] LEVELS OTHER SERUM ENZYMES] Onset: 07-02-2022 Episodic Past or Other Problems Problem Classification Problem Date Documented Da te Episodic/Chronic Complications of surgical procedures or medical care (3 sources) Complication of other artery following a procedure, not elsewhere classified, initial encounter; Translations: [Other postprocedural complications and disorders of the circulatory system, not elsewhere classified] Onset: 04-24-2022 Episodic Coronary atherosclerosis and other heart disease (6 sources) Presence of aortocoronary bypass graft; Translations: [PRESENCE AORTOCORONARY BYPASS GRAFT] Onset: 06-03-2022 Episodic Diabetes mellitus without complication (1 source) Other abnormal glucose; Translations: [OTHER ABNORMAL GLUCOSE] Onset: 04-07-2022 Episodic Nonspecific chest pain (4 sources) Chest pain, unspecified; Translations: [CHEST PAIN UNSPECIFIED] Onset: 04-14-2022 Episodic Other lower respiratory disease (3 sources) Other forms of dyspnea; Translations: [OTHER FORMS OF DYSPNEA] Onset: 04-17-2022 Episodic Other nervous system disorders (4 sources) Other acute postprocedural pain; Translations: [OTHER ACUTE POSTPROCEDURAL PAIN] Onset: 05-19-2022 Episodic Other nutritional; endocrine; and metabolic disorders (1 source) Overweight; Translations: [OVERWEIGHT] Onset: 04-17-2022 Episodic Other screening for suspected conditions (not mental disorders or infectious disease) (4 sources) Abnormal results of liver function studies; Translations: [Encounter for screening for malignant neoplasm of prostate] Onset: 04-07-2022 Episodic Results Test Name Value Interpretation Reference Range Facility Office Visiton 06-17-2023 Follow-up visit [id number] Jose Todd 1955 M Date Provider Department Center 06/17/2023 BRISSA ESCOBAR [facility] Family History Problem Relation Age of Onset Heart attack Maternal Grandfather Heart attack Paternal Grandfather Family Status - Relation Status Age at Maternal Grandfather Paternal Grandfather Level of Service:97046 [place] OFFICE/OUTPATIENT ESTABLISHED LOW MDM 20 MIN Normal [facility] HPon 05-13-2023 HP Chief Complaint Patient presents with Shortness of Breath Coronary Artery Disease Jose Todd is a 67 y.o. male here [...] Drug use: Not Currently Allergies Allergen Reactions Hlycmng-Cqd-Klz Reductase Inhibitors ROS Cardiovascular: Positive for dyspnea [...] 10.3 mg/ (more content not included)... Normal [facility] NURSNOTEon 05-13-2023 NURSNOTE RN educated pt on d/ c instructions. RN encouraged pt to voice any questions or concerns. Pt verbalizes no questions or concerns at this time. Pt was wheeled off of unit with all of belongings. [facility] Orders Onlyon 05-11-2023 Orders Only [id number] Jose Todd 1955 M Date Provider Department Center 05/11/2023 Waqar-ULISES ÁLVAREZ EFRAÍN Venegas Family History Problem Relation Age of Onset Heart attack Maternal Grandfather Heart attack Paternal Grandfather Family Status - Relation Status Age at Maternal Grandfather Paternal Grandfather [facility] 36on 05-05-2023 36 I called and spoke [...] obtain a follow-up BMP. He states understanding. [facility] Telephoneon 05-05-2023 Telephone [id number] Jose Todd 1955 M Date Provider Department Center 05/05/2023 JOSE GUADALUPE CARRERA Family History Problem Relation Age of Onset Heart attack Maternal Grandfather Heart attack Paternal Grandfather Family Status - Relation Status Age at Maternal Grandfather Paternal Grandfather [facility] 36on 04-20-2023 36 Please make sure he is also scheduled for his stress test and ECHO. Thanks! [facility] 36on 04-19-2023 36 Please let him know [...] too get this below 70. Thanks, Sh[facility] Telephoneon 04-19-2023 Telephone [id number] Jose Todd 1955 M Date Provider Department Center 04/19/2023 [address]UPE CARRERA L[address] . Family History Problem Relation Age of Onset Heart attack Maternal Grandfather Heart attack Paternal Grandfather Family Status - Relation Status Age at Maternal Grandfather Paternal Grandfather Normal [facility] 37on 04-12-2023 37 *Get stress test and ECHO done *Have labs done, fasting *Ask PCP to change pain medication to not be an NSAID Normal [facility] Office Visiton 04-12-2023 Follow-up visit [id number] Jose Todd 1955 M Date Provider Department Center 04/12/2023 JOSE GUADALUPE CARRERA Family History Problem Relation Age of Onset Heart attack Maternal Grandfather Heart attack Paternal Grandfather Family Status - Relation Status Age at Maternal Grandfather Paternal Grandfather Level of Service:52700 [place] OFFICE/OUTPATIENT ESTABLISHED MOD MDM 30-39 MIN Reason for Visit and Comments: Shortness of Breath [628643] Coronary Artery Disease [187] Normal [facility] Office Visiton 01-04-2023 Follow-up visit [id number] Jose Todd 1955 M Date Provider Department Center 01/04/2023 JENNIFER JACOBO EFRAÍN Venegas Family History Problem Relation Age of Onset Heart attack Maternal Grandfather Heart attack Paternal Grandfather Family Status - Relation Status Age at Maternal Grandfather Paternal Grandfather Level of Service:47004 [place] OFFICE/OUTPATIENT ESTABLISHED MOD MDM 30-39 MIN Normal [facility] GLYCOHEMOGLOBIN A1Con 2022 ADA RECOMMENDATION SEE BELOW Normal [facility] [place] [facility] Comment on above: Result Comment: ADA RECOMMENDED LIMIT 4.0 - 6.0 ADA THERAPEUTIC TARGET < 7.0 ACTION SUGGESTED > 7.0 Performed By: #### A 1C #### [facility] [address] [address] [address] Tiny Miranda Glucose [Mass/Vol] 123 mg/dL Normal [facility] Comment on above: Performed By: #### A 1C #### [facility] [address] [address] [address] Tiny Miranda HbA1c (Bld) [Mass fraction] 5.9 % Normal 4.5-6.2 [facility] Comment on above: Performed By: #### A 1C #### [facility] [address] [address] [address] Tiny Miranda LIPID PROFILEon 06-28-2022 CHOL-HDL RATIO NORM SEE BELOW Normal [facility] Comment on above: Result Comment: 3.3 - 4.4 LOW RISK 4.4 - 7.1 AVERAGE RISK 7.1 - 11.0 MODERATE RISK >11.0 HIGH RISK Performed By: #### L MALACHI LIPID #### [facility] [address] [address] [address] Tiny Miranda Cholesterol [Mass/Vol] 132 mg/dL Normal <=200 [facility] Comment on above: Performed By: #### L MALACHI LIPID #### [facility] [address] [address] [address] Tiny Miranda Cholesterol in HDL [Mass/Vol] 39 mg/dL Critically low 40-60 [facility] Comment on above: Performed By: #### L MALACHI LIPID #### [facility] [address] [address] [address] Tiny Miranda Cholesterol in LDL [Mass/Vol] 70.2 mg/dL Normal [facility] Comment on above: Performed By: #### L MALACHI LIPID #### [facility] [address] [address] [address] Tiny Miranda Cholesterol.total/Cho lesterol in HDL [Mass ratio] 3.4 {ratio} Normal [facility] Comment on above: Performed By: #### L IVROQUE, LIPID #### [facility] [address] [address] [address] Tiny Miranda HDL NORMAL > or = 60 mg/dl - LO W CARDIOVASCULAR RISK <40 mg/dl - HIGH CARDIOVASCULAR RISK Normal [facility] Comment on above: Performed By: #### L IVROQUE, LIPID #### [facility] [address] [address] [address] Tiny Miranda LDL CALC NORMAL SEE BELOW Normal [facility] Comment on above: Result Comment: <100 mg/dl OPTIMAL 100 - 129 mg/dl NEAR OR ABOVE OPTIMAL 130 - 159 mg/dl BORDERLINE HIGH 160 - 189 mg/dl HIGH >190 mg/dl VERY HIGH Performed By: #### L IVER, LIPID #### [facility] [address] [address] [address] Tiny Miranda Triglyceride [Mass/Vol] 114 mg/dL Normal <=150 [facility] Comment on above: Performed By: #### L IVER, LIPID #### [facility] [address] [address] [address] Tiny Miranda VLDL CALC 22.8 mg/dL Normal [facility] Comment on above: Performed By: #### L IVER, LIPID #### [facility] [address] [address] [address] Tiny Miranda LIVER PROFILEon 06-28-2022 Albumin [Mass/Vol] 3.6 g/dL Normal 3.4-5.0 [facility] Comment on above: Performed By: #### L IVER, LIPID #### [facility] [address] [address] [address] Tiny Miranda Albumin/Globulin [Mass ratio] 1.0 {ratio} Normal [facility] Comment on above: Performed By: #### L IVER, LIPID #### [facility] [address] [address] [address] Tiny Miranda ALP [Catalytic activity/Vol] 48 U/L Normal 46-116 [facility] Comment on above: Performed By: #### L IVER, LIPID #### [facility] [address] [address] [address] Tiny Miranda ALT [Catalytic activity/Vol] 39 U/L Normal 16-63 [facility] Comment on above: Performed By: #### L IVER, LIPID #### [facility] [address] [address] [address] Tiny Miranda AST [Catalytic activity/Vol] 26 U/L Normal 15-37 [facility] Comment on above: Performed By: #### L IVER, LIPID #### [facility] [address] [address] [address] Tiny Miranda BILI, CONJUGATED 0.1 mg/dL Normal 0.0-0.2 [facility] Comment on above: Performed By: #### L IVER, LIPID #### [facility] [address] [address] [address] Tiny Miranda Bilirubin [Mass/Vol] 0.6 mg/dL Normal 0.2-1.0 [facility] Comment on above: Performed By: #### L IVER, LIPID #### [facility] [address] [address] [address] Tiny Miranda Globulin (S) [Mass/Vol] 3.6 g/dL Normal [facility] Comment on above: Performed By: #### L IVER, LIPID #### [facility] [address] [address] [address] Tiny Miranda Protein [Mass/Vol] 7.2 g/dL Normal 6.4-8.2 [facility] Comment on above: Performed By: #### L IVER, LIPID #### [facility] [address] [address] [address] Tiny Miranda PROF CHEM 8 (BAS METB)on Anion gap [Moles/Vol] 12.4 mmol/L Normal [facility] Comment on above: Performed By: #### B MP ####[facility] [address] [address]Dr. Tiny Miranda Calcium [Mass/Vol] 9.2 mg/dL Normal 8.5-10.1 [facility] [place] [facility] Comment on above: Performed By: #### B MP ####[facility] [address] [address]Dr. Tiny Miranda Chloride [Moles/Vol] 104 mmol/L Normal 98-107 [facility] Comment on above: Performed By: #### B MP ####[facility] [address] [address]Dr. Tiny Miranda CO2 [Moles/Vol] 30.5 mmol/L Normal 21.0-32.0 [facility] Comment on above: Performed By: #### B MP ####[facility] [address] [address]Dr. Tiny Miranda Creatinine [Mass/Vol] 1.12 mg/dL Normal 0.70-1.30 [facility] Comment on above: Performed By: #### B MP ####[facility] [address] [address]Dr. Tiny Ruben EGFR-AF PALAUAN >60 Normal >=60 [facility] Comment on above: Performed By: #### B MP ####[facility] [address] [address]Dr. Tiny Miranda EGFR-NON AF PALAUAN >60 Normal >=60 [facility] Comment on above: Performed By: #### B MP ####[facility] [address] [place], [place] [address]Dr. Tiny Miranda Glucose [Mass/Vol] 121 mg/dL Critically high 74-[address] [facility] Comment on above: Performed By: #### B MP ####[facility] [address] [place], [place] [address]Dr. Tiny Miranda Potassium [Moles/Vol] 4.9 mmol/L Normal 3.5-5.1 [facility] Comment on above: Performed By: #### B MP ####[facility] [address] [place], [place] [address]Dr. Tiny Miranda Sodium [Moles/Vol] 142 mmol/L Normal 136-145 [facility] Comment on above: Performed By: #### B MP ####[facility] [address] [id number] Tiny Miranda Urea nitrogen [Mass/Vol] 14.0 mg/dL Normal 7.0-18.0 [facility] Comment on above: Performed By: #### B MP ####[facility] [address] [place], [place] [address]Dr. Tiny Miranda Urea nitrogen/Creatinine [Mass ratio] 12.5 mg/mg Normal [facility] Comment on above: Performed By: #### B ####[facility] [address] [place], [place] [address]AeColeman Miranda US MARY DOP LEG LTon 05-19-19 MARY DOP LEG LT EXAMINATION: US MARY DOP LEG LT HISTORY: Acute postoperative pain ; left leg pain and swelling COMPARISON: No relevant comparison available. FINDINGS: REGION: Left lower extremity THROMBI: None. COMPRESSIBILITY: Normal compressibility. FLOW: Normal waveform and antegrade flow between 5 and 20 cm/s. OTHER: None. IMPRESSION: 1. No deep vein thrombus within the left lower extremity. Electronically authenticated by: KUSH GARSIA Date: 2022-05-19 16:48 Normal [facility] NM STRESS/REST MULTIon 04-14 NM STRESS/REST MULTI Patient: JOSE TODD Exam Date: 04/14/2022 : 1955 Gender:M Ordering : DR DEON MIR . Admission #: [id number] Family : Order #: [id number] CLICK HERE TO VIEW EXAM RADIOLOGY REPORT [...] MD on 04/15/2022 at 07:51 Normal [facility] HEPATITIS PANEL, ACUTEon HBsAg Screen Negative Normal Negative [facility] Comment on above: Performed By: #### H EPACUT ####[facility] [address] [id number] Tiny Miranda HCV AB <0.1 Normal 0.0-0.9 [facility] Comment on above: Performed By: #### H EPACUT ####[facility] [address] [id number] Tiny Miranda Hep A Ab, IgM Negative Normal Negative [facility] Comment on above: Performed By: #### H EPACUT ####[facility] [address] [id number] Tiny Miranda Hep B Core Ab, IgM Negative Normal Negative [facility] [place] [facility] Comment on above: Performed By: #### H EPACUT ####[facility] [address] [id number] Tiny Miranda Interpretation: Comment Normal [facility] Comment on above: Result Comment: Nega tive Not infected with HCV, unless recent infection is suspected or other evidence exists to indicate HCV infection. Performed By: #### H EPACUT ####[facility] [address] [id number] Tiny Miranda INSULINon 04-06-2022 Insulin 51.4 uIU/mL Critically high 2.6-24.9 [facility] [place] Comment on above: Performed By: #### I NSULIN ####[facility] [address] [address]Dr. Tiny Miranda BNPon 04-05-2022 Natriuretic peptide B (Bld) [Mass/Vol] 20.0 pg/mL Normal <=900.0 [facility] Comment on above: Performed By: #### C MP, BNP, LIPID #### [facility] [address] [address] [address] Tiny Miranda CBC AUTO DIFFon 04-05-2022 BASO # 0.1 103/ul Normal 0.0-0.1 [facility] Comment on above: Performed By: #### C BC #### [facility] [address] [address] [address] Tiny Miranda Basophils/100 WBC (Bld) 1.8 % Normal 0.2-2.0 [facility] Comment on above: Performed By: #### C BC #### [facility] [address] [address] [address] Tiny Miranda EO # 0.2 103/ul Normal 0.0-0.7 [facility] Comment on above: Performed By: #### C BC #### [facility] [address] [place] [address] Dr. Tiny Miranda Eosinophils/100 WBC (Bld) 3.9 % Normal 0.9-7.0 [facility] Comment on above: Performed By: #### C BC #### [facility] [address] [address] [address] Tiny Miranda Erythrocyte distribution width (RBC) [Ratio] 12.9 % Normal 11.0-15.0 [facility] Comment on above: Performed By: #### C BC #### [facility] [address] [place] [address] Dr. Tiny Miranda Hematocrit (Bld) [Volume fraction] 47.8 % Normal 42.0-54.0 [facility] Comment on above: Performed By: #### C BC #### [facility] [address] [address] [address] Tiny Miranda Hemoglobin (Bld) [Mass/Vol] 16.5 g/dL Normal 14.0-18.0 [facility] Comment on above: Performed By: #### C BC #### [facility] [address] [address] [address] Tiny Miranda IG # 0.03 10e3/ul Normal 0.00-0.03 [facility] Comment on above: Performed By: #### C BC #### [facility] [address] [place] [address] Dr. Tiny Miranda IG % 0.5 % Normal 0.0-0.5 [facility] Comment on above: Performed By: #### C BC #### [facility] [address] [place] [address] Dr. Tiny Miranda LYMPH # 1.8 103/ul Normal 1.2-3.8 [facility] Comment on above: Performed By: #### C BC #### [facility] [address] [place] [address] Dr. Tiny Miranda Lymphocytes/100 WBC (Bld) 31.2 % Normal 20.5-60.0 [facility] Comment on above: Performed By: #### C BC #### [facility] [address] [place] [address] Dr. Tiny Miranda MANUAL DIFF REQ NO Normal [facility] Comment on above: Performed By: #### C BC #### [facility] [address] [place] [address] Dr. Tiny Miranda MCH (RBC) [Entitic mass] 32.4 pg Normal 25.9-34.0 [facility] Comment on above: Performed By: #### C BC #### [facility] [address] [place] [address] Dr. Tiny Miranda MCHC (RBC) [Mass/Vol] 34.5 g/dL Normal 29.9-35.2 [facility] Comment on above: Performed By: #### C BC #### [facility] [address] [place] [address] Dr. Tiny Miranda MCV (RBC) [Entitic vol] 93.7 fL Normal 80.0-94.0 [facility] Comment on above: Performed By: #### C BC #### [facility] [address] [place] [address] Dr. Tiny Miranda MONO # 0.4 103/ul Normal 0.3-0.8 [facility] Comment on above: Performed By: #### C BC #### [facility] [address] [address] [address] Tiny Miranda Monocytes/100 WBC (Bld) 6.9 % Normal 1.7-12.0 [facility] Comment on above: Performed By: #### C BC #### [facility] [address] [address] [address] Tiny Miranda NEUT # 3.2 103/ul Normal 1.4-6.5 [facility] Comment on above: Performed By: #### C BC #### [facility] [address] [place] [address] Dr. Tiny Miranda Neutrophils/100 WBC (Bld) 55.7 % Normal 43.0-75.0 [facility] Comment on above: Performed By: #### C BC #### [facility] [address] [place] [address] Dr. Tiny Miranda Platelet mean volume (Bld) [Entitic vol] 9.0 fL Critically low 9.5-13.5 [facility] Comment on above: Performed By: #### C BC #### [facility] [address] [place] [address] Dr. Tiny Miranda PLT 219 103/ul Normal 150-450 [facility] Comment on above: Performed By: #### C BC #### [facility] [address] [place] [address] Dr. Tiny Miranda RBC 5.10 106/ul Normal 4.70-6.10 [facility] Comment on above: Performed By: #### C BC #### [facility] [address] [place] [address] Dr. Tiny Miranda WBC 5.7 103/ul Normal 4.0-11.0 [facility] Comment on above: Performed By: #### C BC #### [facility] [address] [place] [address] Dr. Tiny Miranda GLYCOHEMOGLOBIN A1Con 2021 ADA RECOMMENDATION SEE BELOW Normal [facility] [place] [facility] Comment on above: Result Comment: ADA RECOMMENDED LIMIT 4.0 - 6.0 ADA THERAPEUTIC TARGET < 7.0 ACTION SUGGESTED > 7.0 Performed By: #### A 1C #### [facility] [address] [address] [address] Tiny Miranda Glucose [Mass/Vol] 140 mg/dL Normal [facility] Comment on above: Performed By: #### A 1C #### [facility] [address] [address] [address] Tiny Miranda HbA1c (Bld) [Mass fraction] 6.5 % Critically high 4.5-6.2 [facility] Comment on above: Performed By: #### A 1C #### [facility] [address] [address] [address] Tiny Miranda LIPID PROFILEon 04-05-2022 CHOL-HDL RATIO NORM SEE BELOW Normal [facility] Comment on above: Result Comment: 3.3 - 4.4 LOW RISK 4.4 - 7.1 AVERAGE RISK 7.1 - 11.0 MODERATE RISK >11.0 HIGH RISK Performed By: #### C MP, BNP, LIPID #### [facility] [address] [place] [address] Dr. Tiny Miranda Cholesterol [Mass/Vol] 241 mg/dL Critically high <=200 [facility] Comment on above: Performed By: #### C MP, BNP, LIPID #### [facility] [address] [place] [address] Dr. Tiny Miranda Cholesterol in HDL [Mass/Vol] 41 mg/dL Normal 40-60 [facility] Comment on above: Performed By: #### C MP, BNP, LIPID #### [facility] [address] [place] [address] Dr. Tiny Miranda Cholesterol in LDL [Mass/Vol] 167.6 mg/dL Normal [facility] Comment on above: Performed By: #### C MP, BNP, LIPID #### [facility] [address] [address] [address] Tiny Miranda Cholesterol.total/Cho lesterol in HDL [Mass ratio] 5.9 {ratio} Normal [facility] Comment on above: Performed By: #### C MP, BNP, LIPID #### [facility] [address] [address] [address] Tiny Miranda HDL NORMAL > or = 60 mg/dl - LO W CARDIOVASCULAR RISK <40 mg/dl - HIGH CARDIOVASCULAR RISK Normal [facility] Comment on above: Performed By: #### C MP, BNP, LIPID #### [facility] [address] [address] [address] Tiny Miranda LDL CALC NORMAL SEE BELOW Normal [facility] Comment on above: Result Comment: <100 mg/dl OPTIMAL 100 - 129 mg/dl NEAR OR ABOVE OPTIMAL 130 - 159 mg/dl BORDERLINE HIGH 160 - 189 mg/dl HIGH >190 mg/dl VERY HIGH Performed By: #### C MP, BNP, LIPID #### [facility] [address] [address] [address] Tiny Miranda Triglyceride [Mass/Vol] 162 mg/dL Critically high <=150 [facility] Comment on above: Performed By: #### C MP, BNP, LIPID #### [facility] [address] [address] [address] Tiny Miranda VLDL CALC 32.4 mg/dL Normal [facility] Comment on above: Performed By: #### C MP, BNP, LIPID #### [facility] [address] [place] [address] Dr. Tiny Miranda PROF 14(COMP METB)on 022 Albumin [Mass/Vol] 4.0 g/dL Normal 3.4-5.0 [facility] Comment on above: Performed By: #### C MP, BNP, LIPID #### [facility] [address] [place] [address] Dr. Tiny Miranda Albumin/Globulin [Mass ratio] 1.0 {ratio} Normal [facility] Comment on above: Performed By: #### C MP, BNP, LIPID #### [facility] [address] [place] [address] Dr. Tiny Miranda ALP [Catalytic activity/Vol] 56 U/L Normal 46-116 [facility] Comment on above: Performed By: #### C MP, BNP, LIPID #### [facility] [address] [place] [address] Dr. Tiny Miranda ALT [Catalytic activity/Vol] 154 U/L Critically high 16-63 [facility] Comment on above: Performed By: #### C MP, BNP, LIPID #### [facility] [address] [place] [address] Dr. Tiny Miranda Anion gap [Moles/Vol] 10.9 mmol/L Normal Th e [facility] Comment on above: Performed By: #### C MP, BNP, LIPID #### [facility] [address] [place] [address] Dr. Tiny Miranda AST [Catalytic activity/Vol] 86 U/L Critically high 15-37 [facility] Comment on above: Performed By: #### C MP, BNP, LIPID #### [facility] [address] [place] [address] Dr. Tiny Miranda Bilirubin [Mass/Vol] 0.8 mg/dL Normal 0.2-1.0 [facility] Comment on above: Performed By: #### C MP, BNP, LIPID #### [facility] [address] [place] [address] Dr. Tiny Miranda Calcium [Mass/Vol] 9.0 mg/dL Normal 8.5-10.1 [facility] Comment on above: Performed By: #### C MP, BNP, LIPID #### [facility] [address] [place] [address] Dr. Tiny Miranda Chloride [Moles/Vol] 102 mmol/L Normal 98-107 [facility] Comment on above: Performed By: #### C MP, BNP, LIPID #### [facility] [address] [place] [address] Dr. Tiny Miranda CO2 [Moles/Vol] 28.3 mmol/L Normal 21.0-32.0 [facility] Comment on above: Performed By: #### C MP, BNP, LIPID #### [facility] [address] [place] [address] Dr. Tiny Miranda Creatinine [Mass/Vol] 1.12 mg/dL Normal 0.70-1.30 [facility] Comment on above: Performed By: #### C MP, BNP, LIPID #### [facility] [address] [address] [address] Tiny Miranda EGFR-AF PALAUAN >60 Normal >=60 [facility] Comment on above: Performed By: #### C MP, BNP, LIPID #### [facility] [address] [address] [address] Tiny Miranda EGFR-NON AF PALAUAN >60 Normal >=60 [facility] Comment on above: Performed By: #### C MP, BNP, LIPID #### [facility] [address] [address] [address] Tiny Miranda Globulin (S) [Mass/Vol] 4.1 g/dL Normal [facility] Comment on above: Performed By: #### C MP, BNP, LIPID #### [facility] [address] [address] [address] Tiny Miranda Glucose [Mass/Vol] 132 mg/dL Critically high 74-[address] [facility] Comment on above: Performed By: #### C MP, BNP, LIPID #### [facility] [address] [address] [address] Tiny Miranda Potassium [Moles/Vol] 4.2 mmol/L Normal 3.5-5.1 [facility] Comment on above: Performed By: #### C MP, BNP, LIPID #### [facility] [address] [address] [address] Tiny Miranda Protein [Mass/Vol] 8.1 g/dL Normal 6.4-8.2 [facility] Comment on above: Performed By: #### C MP, BNP, LIPID #### [facility] [address] [address] [address] Tiny Miranda Sodium [Moles/Vol] 137 mmol/L Normal 136-145 [facility] Comment on above: Performed By: #### C MP, BNP, LIPID #### [facility] [address] [address] [address] Tiny Miranda Urea nitrogen [Mass/Vol] 15.0 mg/dL Normal 7.0-18.0 [facility] Comment on above: Performed By: #### C MP, BNP, LIPID #### [facility] [address], [place] [address] [address] Tiny Miranda Urea nitrogen/Creatinine [Mass ratio] 13.4 mg/mg Normal [facility] Comment on above: Performed By: #### C MP, BNP, LIPID #### [facility] [address], [place] [address] [address] Tiny Miranda Reminderson 09-08-2021 Reminders - From: Aguilar Sanchez To: [facility] - Reminders/Recalls; Sent: 09/07/2021 22:51:37 EDT Show up: 07/14/2026 22:51:00 EST Subject: Ambulatory Reminder Due Date/Time: 08/14/2026 22:51:00 EDT Reminder/Recall colonoscopy reminder 5 years Normal [facility] IntraOperative Documentson 0 07-27-2021 IntraOperative Documents [id number]# 1.00CD:127 Normal [facility] Postoperative Documentson Postoperative Documents [id number]#1 .00CD:127 Normal [facility] Coding Summary.on 07-21-2021 Coding Summary. CD:[id number] G h0bWw+PGhlYWQ+MT6AHMD hM24xdUBlnB1HY6eCRQ7V CRZFVUSKRW6HSY7vgZU2T YssV4PvpuGx QzzziTAlTP59ZJp4AEP0a YbkMKrrbA9bnQPhQ9x9Av UmSS57vU81GPfaCJBcDfF 3LjZpbjsgbWFy N7xkOoFvsQUnVms+PHRhY mxlIHdpZHRoPScxMDAlJy XzdQusNH6qUo4rYKJsBZS vbGxhcHNlOiBj n0zaTYUaGCtyAJ0qiTneN 3ZyxTV5EZKcm1t0Pe45rM I+REHvRDP0wUzbOQwvx88 9PzSip5tmBDO0 wNDsIUzyPMN3S35xm4S6N HXfSPFiYNF6iEO7tU6tyS pnmpyoW6QyrWBpHeR6KZH 8kDMgwY1blLnl wvkjfV9zVss+O19NAY9JZ VLLAX5OKwm8C1ImGyotgQ I+PP70YUBrJK28tRLktVI ly7lbxAq1OiDx WACsQHD8wSosQWobs4VkU NMfE25zlOJdj6Q1ZIWnoD ncmJZgZbCzlRS0gK3mIBh feechd3inwttv Qjqgv1qhgr57oD31T14bT RmwZLIgPGL3RXThJLUneT nmbu2laF9xSo5+DIeeg4i yd4xywMe1ErSl AZEjetRkwWekYAU8j8XnV q99F8DnzIxnt6FaCeq7gu 03rNJzu2W4tNX8HHbzADY etL4cVUndTvY1 GVVzZlBdiS41sZGyUPctL y8ljJjxaVgvIJ9sMKNfup jrFYVdjQ0kELTugPLqaCg dGR0iFQNfyugf o424TbRsNIC9IGShwHTrK 1OijD1jBkTcNXCiZSQpP6 FreMCvIQtxQ919QYwvXnX 4IQCavyIzY3Cl JSLwdUauGyK5v7X7Vo6Yx 9NzovsfWUI1KMbtKSXjDr Y4EtToLpH2U7MsVem0MUN jnPdyOH2nP3Zo ZRWryvozevfopJD1RXPqB GHdiY07zPCkFZbiXk2fb2 N9v882YBSqTXCecI73Ks4 udDogMTBwdCBU vK1mlhsft9zlmkdaEzMdL AVvQYs1OWk0CSMtkXsoEh TjIHQ1SgN3FOJ5aFTkrD5 niYiwlkgukJ3y Oyc+M26emW3aWXG3CLA9m hjrEYWxrtIiCR41IC28R1 RyPjwvdGFibGU+PGRpdiB gsMizUJ0gYhPi v5tdp9JbEZtgW2VrYSGuE TajJrf9FNObTLV0vRJ2pA 0lLDCvFCpfy5U2bII2V0D hryHywh5fb3ji TCQyVWlcC97wdQZsw7P2T WIqcXP7ZKNuaBbqWaWlaP 93Oyc+UVPtwFttk2EmWgb we6czu8nlcVb1 YpXyLQDdwuDxbIhdHVQ0j 5UmGw38X01zXRsyWNIzIZ MbNRIbFMJbbBsdmi8uiX8 wIi8+PGNvbCB3 rKN3fF8qZAZeWxA0TRqrX 052CoUasYYaLmmqd0ulo1 xrhWg0XeJiSCShdtMpzFd jEIA5s3PsKx82 Z50yRCwdCUUkGMAbDKSzH RDwiCvbsi9dbA9mNb9+PC 2al5zbsh00rX93fSN+PHR qAFP1aIobXLcq ZMAztQ8oDYpuVhZ3QHRcN dOgfJ83lPSoJSdcWj9ifP ujlXeuZQ9yFATvmfqzl55 1OiQld0wuNJGf aHRgKPjzEIT8V45dc7I5L ZKyMKXwOCS0vUU1hE0dmM lnbjogbGVmdDsgdmVydGl lKDpuEIboL446 IHRvcDsnPlBhdGllbnQgT wVsSVu7K8CuYoe8XMMatH nuKG3byQIjSVnaZk4yzJv ezQvfPF9rJTDy nrxbe920UqNkm2xaVVMhx EYuYLlfREU1G04am2Z0XX YoISAbKHZ8zCW6pH8yjRk nbjogbGVmdDsg lvRdyEmtYHhxFNroD095X HRvcDsnPkJpcnRoIERhdG T0SR60HZ72sCFoa6C3qQD 4Q5UvRBXwzvnf ydqszZW6WLNtRENkaP42S j9etNejNo2sXYApWXE9KZ TemPHsM9UxwN4tOgVoSOT fRNRgN2DtgYCh KCwcC371JBukWnD9QAGdx sEyO2DkPCEnzEneKpO4d6 D1Ly8MV0S1WD79DJ22cMO pw9U3vMA0M0Rm FGIdavauhpyyhID4THXiB NRnyB92Qm5arArkXu2xBV PnQUE7EDTmqBQjV7GuzQ0 yOiAjMDAwMDAw U6QnrBHbZXapO979TQkbH tF6CBAxawZqZ6KgYYFcyV laUxD2c5O4Sy0EQCr5CP9 0GJ56wMSvw7S2 cAR8W9XyOCHddsrxmnprf AB8FCGjQEFgdH49Kg4psX wtTp8tRVGdHZT7EBJmvSG oY2OodH8vRoRx VDQsKBYvI7DwkCTuLVduQ 489EBlaOwO7QGRkgvGcB2 HfYMUsfMlzOdF1u1X3Mc3 NUFHbVY02AUF1 tHR0EK60XR16R9DgAosfg GFibGU+PHRhYmxlIHdpZH RoPScxMDAlJyBzdHlsZT0 xUc0aTBAtNEWz pEabpFZwEgJod2bdSXQsK BdnTU5sfSdhY4RknHD2BL Ijf5r5Qs59M41jK6XceKD +EPFdzIX6wEI4 bR4vEyBuAuL7VUbcV982F rEgsTRoAtqrm3lii7hpvP t6AzG3QCZsinPetYalDMB 2l1WzLu38Z83x IHdpZHRoPSIxNSUiIHZhb Dmcfi5vlE2dUb4+PGNvbC F0zQZ8iL0bOxVlJjG5MGd cK651CxPwuNOz Hvyvb3qtk4jqiLs2GjFkY EOcrtXjqXouZJA5f0LqEq 60B2WsfHiwp1CcNvi0lp5 4eWWem1X1xBP0 K9VpOBXuosvvvYPcwTvuL Y9sHXKkomerWMDdjY0xCZ KoQ6w8KvXoNcU5KTxyW2I lzhA4MNCvyBEq IUvjDGG6U65tf1R3LUKbM HAiPKY9aEQ2pX9xeKsnbq ogbGVmdDsgdmVydGljYWw iMStqB193GXWk fTlvPOWcgV2wMFZvmOBey DqmCN5aDYXhmfewNtDGNc FTKzJmMZmCMEoWRC2cYXb vdGQ+PHRkIHN0 eHdeXTrmCONofE6oFZZrQ 0j6MvZbWiB6NKmnM8AnYF DpfylqKr57iM6hOqIoLiH 1ZNkcB9FtomG8 TFJucXAyHIhsGVR6I14co 6T9BWMsSETnXPZ4pNB7lQ 1hbGlnbjogbGVmdDsgdmV ydGljYWwtYWxp R904BCGhwFdsZiPkWnLwJ mF8BSF3N8MqMfl5EGDfwX rqZY7hrCHrTCzgTc7kaJy lgOjsAV1zMVJo rbnkZXYlnZ6kRXHouSIvw WkjEN6yERQjukmdx579Qy DePUA6CSFlaTCvC6MlxC1 yOiAjMDAwMDAw C1FhpDCuYZggF330KEjcJ fE3KLWdbzUkQ7UoHBRswW oeMdE7k6B5Nv37RTLTKYH yczwvdGQ+PHRk UFZ4pEdbWVdxEKOorP7tD QDoU9a3QqDnSbH7PLinC3 WiEEPdzcjhDx65kA0sMmH aEtQ5QRioU0Ig jzI6RWYluWTmMEhkZAK1H 59ir0Y3QGIaMLXxQEA5dB U7bO5dpRdomnubfNArhHe gdmVydGljYWwt RTzjU326KPNvlKduAt3ko EI4Y0JgPqy2RGKsmDdfTV 3zcIZgBUplSn3daNupdKq eXD8sBTVkwbef DEDpwR5lRYCbcRQpoFhrS Z4mOZFldftfn500TyMzPK D7OOTzyVRiH8HvsG7qKqV pEAZxLERvA3Bf xUFaBIsoI932TFciYnK8A WOdbpOmO5UtQJEfkFqdXd U9j7V6Ow5HnBXhVVIxZF2 1KF02DI66Q7Fn PjwvdGFibGU+PHRhYmxlI HdpZHRoPScxMDAlJyBzdH gdRI9gUl2uUMIqTVZrdZz meZHvCwJwz8rf BXYkNZfdCO7ctIjmB5Gur KF5VNKjj8k8Ba69A26cO5 JvdXA+GWWaoOY3jEB0wW1 lEzWnCpP5WDun O944GhKtrFSfCtort5pjz 4ucpBn4GgQuSASsdhCugI zfCCT9i6LkUw94U85wYCd pZHRoPSIyMCUi QMBluShjhf2ymF3gKi8+P TMksPN6yMF2tX5rEwKcRh B4PCldU449FbQqqQTpUtg lT11bU2CjyZK+ YEEiEmi3HBKpzSsnIE6lg FDjTQogAn5yTNY6GsJvSf WySYndR8JhTEGyrfauqot cfQJ8EMUySKCw nO66Pp3uiMvcXd2nOJGbF HW4SADpxYSxF4XsvI1aTn BwTJKuRERbF2IkrVJhIBg eJ526XZotZkW8 VUTqskXpQ6JfFPVsmPkxM fW2n0L7Hz1MeCmbrWQuEL 8hRzIaHIk2K2TfTcm5MEW ioHfiVV1aiPYl VYdgIy0xlCciiIgwJE6sA FBupaivr440QmFsv7vzMP OwwXJsHUgwAHB7G62wp6N 4MRLwDJMeESX5 wXX6yI5qnBpzvwsavLGdq DsgdmVydGljYWwtYWxpZ2 31SGIrdMjxTxHEVcl1H0K oAdv9SFXyjLqy YU9srZKcSEcvXi7ofZsxx VjsSJ7uCRDfajxgy125Lo Egm8fyNAZvwCLtADimCVA 7P71pd7D9BOKp TLIvWVF2dAS2aU2iwRvoa jogbGVmdDsgdmVydGljYW xuYOriJ160IJTmiEdvDb2 KJcc8R9FhGvi4 UFChvVpaOK1teRHtJBxnM h0keJwjpJjnHH8sUYXkfg wdz758HtCts2tiRDRhwOR oADsaLAM6W27a d8X3KQUgYFVyZBX0xQI1f I1aaPunzwrdqICbyFdrbg JpxQpvFUquVGyoX267NFE vcDsnPlBheWVy OjwvdGQ+HK80uh29C7KwG shnDzq7KMKqNNX0kQK6sT 9oQSVjFDuba0G0uRU7Z0T qyzHhfl2dy1ah YXBz (more content not included)... Normal [facility] Main OR Intraoperative Recor don 07-21-2021 Main OR Intraoperative Record IntraOp Document Type FT Summary Primary Physician: Rebecca SARAVIA MD Finalized Date/Time: 07/21/21 12:04:08 Pt. Name: JOSE TODD/Sex: 1955 Male Med Rec #: [id number] Physician: Rebecca SARAVIA MD Financial #: [id number] Pt. Type: O Room/Bed: / Admit/Disch: 07/17/21 11:12:18 - 07/17/21 23:59:59 Institution: Case Times FT Entry 1 Patient Times In Room 07/17/21 12:31:00 Out Room 07/17/21 12:44:00 Procedure Times Start 07/17/21 12:34:00 Stop 07/17/21 12:41:00 Anesthesia Times Start 07/17/21 12:31:00 Stop 07/17/21 12:44:00 Last Modified By: Zuhair Mccullough RN 07/17/21 12:45:13 General Comments: 07/21/21 chart open to review and send charges dane bustillos rn Case Attendance FT Entry 1 Entry 2 Entry 3 Case Attendee Junior ROSALES, Ashley SARAVIA MD, Rebecca Mccullough RN, Zuhair Burrows Role Performed Anesthesiologist Surgeon - Primary Cooking Casing And Drying Supervisor - Primary Production Drilling Machine Operator Time In 07/17/21 12:31:00 07/17/21 12:31:00 07/17/21 12:31:00 Time Out 07/17/21 12:44:00 07/17/21 12:44:00 07/17/21 12:44:00 Procedure COLONOSCOPY(.) COLONOSCOPY(.) COLONOSCOPY(.) Comments Dr. Romano supervising case Last Modified By: Sadia RN, Zuhair Mccullough RN, Zuhair Rodrigez RN 07/17/21 12:45:14 07/17/21 12:45:14 07/17/21 12:45:14 Entry [...] (If Applicable) PreOp Antibiotic No Time Out Junior ROSALES, Ashley M, Given Participants Rebecca SARAVIA MD, Souter RN, [...] Side Right (more content not included)... Normal [facility] Consenton 07-20-2021 Consent [id number]# 1.00CD:127 [facility] Discharge Instructionson Discharge Instructions [id number]# 1.00CD:127 [facility] IntraOperative Documentson 0 07-20-2021 IntraOperative Documents [id number]# 1.00CD:127 [facility] IntraOperative Documents [id number]# 1.00CD:127 [facility] Consent for Treatmenton Consent for Treatment [id number]#1 .00CD:127 [facility] Endoscopic Procedure Report - Otheron 07-17-2021 Endoscopic Procedure Report - Other Patient: JOSE TODD Age: 66 years Sex: Male : [...] Pre-procedure diagnosis: History of colon polyps. Medications Anticoagulant/antipla telet None. ASA Classification: Class II. . Procedure [...] Small nonbleeding internal hemorrhoids Images Procedure images: Rec1_hd_video_2021_ _[id number].jpg Rec1_hd_video_2021_ _[id number].jpg Rec1_hd_video_2021_ _[id number].jpg . Post-Procedure Complications: none. Estimated blood loss: [...] Return to activities:: After 24 hours. Normal [facility] Comment on above: Result Comment: Elec tronically Signed By: MANJIT WILSON, Rebecca\.br\Date and Time Signed: 07/17/21 12:44 EST Other Comment: Claudia veras Attachment - attachment storage system not supported [id number] Can be viewed in source system Missing Attachment - attachment storage system not supported [id number] Can be viewed in source system Missing Attachment - attachment storage system not supported [id number] Can be viewed in source system Inpatient Patient Summaryon 07-17-2021 Inpatient Patient Summary [address] [address] [facility] Clinical Discharge Instructions PERSON INFORMATION Name: JOSE TODD PHYSICIANS Admitting Physician: Rebecca SARAVIA MD Attending Physician: Rebecca SARAVIA MD PCP: Clarke WILSON, Deon Discharge Diagnosis: Colon polyp Comment: PATIENT EDUCATION INFORMATION Instructions: Colonoscopy, Care After Surgery Manjit (CUSTOM); Colon Polyps Medication Leaflets: Follow up: With: Address: When: Rebecca SARAVIA [address] [place] [address]. [address] [place] [phone] Business (0) Comments: office will call fof follow up MEDICATION LIST Medications to Continue with No Changes Other Medications aspirin 81 Milligram By Mouth every day. Ordered by another provider.. losartan (Cozaar 100 mg Tab) 1 Tablets By Mouth every day. omeprazole (omeprazole 40 mg Cap-EC) 1 Capsules By Mouth every day. Comment: Normal [facility] Main OR PACU I Recordon Main OR PACU I Record PACU Phase I Docum ent Type FT Summary Primary Physician: Rebecca SARAVIA MD Finalized Date/Time: 07/17/21 14:31:57 Pt. Name: JOSE TODD Markos Geiger/Sex: 1955 Male Med Rec #: [id number] Physician: Rebecca SARAVIA MD Financial #: [id number] Pt. Type: O Room/Bed: / Admit/Disch: 07/17/21 [...] 07/17/21 14:31 Bharti Kamara RN 07/17/21 14:31 Demetrius [facility] Main OR Preoperative Recordo n 07-17-2021 Main OR Preoperative Record Holding Area Document Type FT Summary Primary Physician: Rebecca SARAVIA MD Finalized Date/Time: 07/17/21 11:54:32 Pt. Name: JOSE TODD/Sex: 1955 Male Med Rec #: [id number] Physician: Rebecca SARAVIA MD Financial #: [id number] Pt. Type: O Room/Bed: / Admit/Disch: 07/17/21 [...] By: Paola Falk RN 07/17/21 11:54 Normal [facility] Monitor Recordon 07-17-2021 Monitor Record [id number]# 1.00CD:127 Normal [facility] Monitor Record [id number]# 1.00CD:127 Normal [facility] Outpatient Surgery Discharge Instructionon 07-17-2021 Outpatient Surgery Discharge Instruction [place] [id number] Patient Discharge Instructions PERSON INFORMATION Name: JOSE TODD Date of : 1955 Current Date: 07/17/2021 12:56:01 PHYSICIANS Admitting Physician: Rebecca SARAVIA MD Discharge Diagnosis: Colon polyp JOSE TODD has been given the following list [...] THE NEAREST EMERGENCY ROOM OR CALL 911 IDOUGLAS WILLIAM E, have received the attached patient education materials/instruction s and have verbalized understanding: May we do a follow up call? Yes No I was present when discharge instructions were given Patient Signature Date Clinican/Nurse Signature Date Follow up: With: Address: When: Rebecca SARAVIA [address] [place] [address] [address] [place], [place] [id number] [facility] (1) Comments: office will call [facility] follow up Pharmacy Information: [facility] You may receive a survey from [employer] asking you to rate your care experience. Your feedback is important and will help us understand what we do well and how we can improve the quality of care we provide to you, your loved ones and our community. It?s an honor to serve you. Thank you for choosing [facility] HERE ARE THE MEDICATION CHANGES THAT [...] ? Are (more content not included)... Normal [facility] Patient Education - Texton 0 07-17-2021 Patient [...] that are (more content not included)... Normal [facility] Progress Note-Physicianon Progress Note-Physician Patient: JOSE TODD Age: 66 years Sex: Male : 1955 Associated Diagnoses: None Author: Jose Romano Jr., DO Postoperative Information Post Operative Note: Post Anesthesia Care Unit. Anesthetic utilized: General. Health Status Allergies: Allergic Reactions (Selected) Severity Not Documented Simvastatin- Muscle pain. Problem list: All Problems Hyperplastic polyp of sigmoid colon / SNOMED CT 312663127 / Confirmed History of DVT of lower extremity / SNOMED CT 2687430611 / Confirmed Tubulovillous adenoma of colon / SNOMED CT 9613842994 / Confirmed HTN (hypertension) / SNOMED CT 6949027233 / Confirmed Gastric ulcer / SNOMED CT 0851717352 / Confirmed GERD (gastroesophageal reflux disease) / SNOMED CT 852433799 / Confirmed Sleep apnea / SNOMED CT 841721539 / Confirmed Hypercholesteremia / SNOMED CT 74782538 / Confirmed Fecal occult blood test positive / SNOMED CT 22533260 / Confirmed Personal history of colonic polyps / SNOMED CT 2676286182 / Confirmed BMI 35.0-35.9,adult / SNOMED CT 463936479 / Confirmed History of colon polyps / SNOMED CT 4015853290 / Confirmed Family history of colon cancer / SNOMED CT 584910833 / Confirmed Resolved: HTN (hypertension) / SNOMED CT [id number] Physical Examination Vital Signs 07/17/2021 12:55 EST [...] noted. Plan Transfer/ Discharge: Condition stable. Normal [facility] Comment on above: Result Comment: Elec tronically Signed By: Jose Romano Jr., DO\.br\Date and Time Signed: 07/17/21 14:13 EST Progress Note-Physician Patient: JOSE TODD Age: 66 years Sex: Male : [...] 0, PER PHYSICIAN INSTRUCTIONS. PRIOR TO COLONOSCOPY., [employer] #24, 170.1, cm, 06/15/21 8:58:00 EST, Height/Length [...] Histories Past Medical History: Resolved HTN (hypertension) ([id number] [id number]): Resolved. Family History: Diverticulitis of colon Father Metastatic cancer Mother Father Procedure history: Colonoscopy ([id number]) on 05/16/2016 at 61 Years. Cholecystectomy ([id number]) on 05/16/2011 at 56 Years. Comments: 12/04/2019 10:14 Nhi Hernandez LPN, Dr. Cataract ([id number]) on 05/16/2009 at 54 Years. Comments: 12/04/2019 10:15 Nhi Hernandez LPN left eye Appendectomy ([id number]) on 05/16/1964 at 9 Years. Social History Social & Psychosocial Habits Alcohol 12/04/2019 Risk Assessment: Denies Alcohol Use 06/15/2021 Use: Current Type: Liquor Frequency: 1-2 times per month Substance Abuse 12/04/2019 Risk Assessment: Denies Substance Abuse Tobacco 06/15/2021 Tobacco Use: Never (less than 100 in l . Physical Examination Respiratory: Lungs are clear to auscultation. Cardiovascular: Regular rhythm. Plan [place] [employer] (ASA) physical status classification: Class III. Anesthetic Preoperative Plan Anesthesia: General. . Anesthetic plan, risks, benefits, and alternatives discussed with the patient and/or family. Patient verbalized understanding. Normal [facility] Comment on above: Result Comment: Elec tronically Signed By: Jose Romano Jr., DO.venkat\Date and Time Signed: 07/17/21 09:35 EST Consent for Procedure/Surger yon 06-16-2021 Consent for Procedure/Surgery [id number]. [id number]# 1.00CD:127 Normal [facility] Ambulatory Visit Summaryon 0 06-15-2021 Ambulatory Visit Summary JOSE TODD Markos :1955 Visit Date:06/15/2021 Ambulatory Visit Instructions Your [...] When: Within 2 to 4 weeks [address]: [address] [place] [address] Medications What How Much When Instructions New polyethylene glycol 3350 with electrolytes (polyethylene glycol 3350 with electrolytes Oral Pwdr for Katie 4000 mL (NuLytely)) See instructions PER PHYSICIAN INSTRUCTIONS. PRIOR TO COLONOSCOPY. Pickup at [facility]/pharmacy #[id number] Unchanged aspirin 81 Milligram [...] physician if questions or concerns Pharmacy Information [facility]/pharmacy #[id number]: [address], [place] [id number] [phone] Allergies simvastatin (Muscle pain) Problems Ongoing - [...] care provider. (more content not included)... Normal [facility] Ambulatory Visit Summary JOSE TODD :1955 Visit Date:06/15/2021 Ambulatory Visit Instructions [...] Within 2 to 4 weeks Where: [address] [place] [address] Medications What How Much When Instructions New polyethylene glycol 3350 with electrolytes (polyethylene glycol 3350 with electrolytes Oral Pwdr for Katie 4000 mL (NuLytely)) See instructions PER PHYSICIAN INSTRUCTIONS. PRIOR TO COLONOSCOPY. Pickup at [facility]/pharmacy #[id number] Unchanged aspirin 81 Milligram By Mouth Every [...] physician if questions or concerns Pharmacy Information [facility]/pharmacy #[id number]: [address], [place] [phone] Allergies simvastatin (Muscle pain) Problems Ongoing - [...] care provider. (more content not included)... Normal [facility] Gastroenterology Office/Clin ic Noteon 06-15-2021 Gastroenterology Office/Clinic [...] well nourished, in no acute distress Head: Normocephalic/atrauma tic Lungs: Normal respiratory effort and clear to [...] (Hospital Procedure) Office Visit Level 3 New 85118 2. Family history of colon cancer (Z80.0: Family history of malignant neoplasm of digestive organs) Same as above plan of care. See # 1. Ordered: Colonoscopy (Hospital Procedure) Office Visit Level 3 New 15289 Orders: polyethylene glycol 3350 with electrolytes, See Instructions, 1 EA, Refill(s) 0, PER PHYSICIAN INSTRUCTIONS. PRIOR TO COLONOSCOPY., [id number], 170.1, cm, 06/15/21 8:58:00 EST, Height/Length Dosing, 106.8, kg, 06/15/21 8:58:00 EST, Weight Dosing Follow-up With When Contact Information MANJIT WILSON, OCTAVIO Fernandez, MED Within 2 to 4 weeks [address] [place] [address] Additional Instructions: Patient Education Colon [...] Father. Metastatic cancer: Mother and Father. Normal [facility] Comment on above: Result Comment: Elec tronically [...] 01/26/2005 Document Revised: 08/17/2018 Document Reviewed: 08/17/2018 Language123 Patient Education ? 2019 [employer]. [facility] Encounters Encounter Date Encounter Type Care Provider Facility Start: 11-07-2023 ambulatory BERTA LOMAX [facility] Start: 06-17-2023 End: 06-17-2023 ambulatory [facility] Start: 05-13-2023 End: 05-13-2023 ambulatory [facility] Start: 04-12-2023 End: 04-13-2023 ambulatory JOSE GUADALUPE MELENDEZCKER [facility] Start: 01-04-2023 End: 01-04-2023 ambulatory JENNIFER [facility] Start: 06-28-2022 End: 06-29-[address] DEON [...] Comment on above: Performed By: #### P [facility] ####[facility] [id number] [place], [place] [address] Miranda Payers Date Payer Category Payer Medicare [id number] 1961 Unknown [id number] 1955 Unknown [id number] 2.16.84 [id number] 1955 Unknown [id number] 2.16.84 [id number] 1955 Unknown [id number] 2.16.84 [id number] 1955 Unknown [id number] 2.16.84 [id number] 1955 Unknown [id number] 2.16.84 [id number] Progress note 06-17-2023 Note Date & Type Note Facility 06-17-2023 Note [place] Cardiology - [facility] [place] [facility] Subjective Jose Todd is a 68 y.o. year old male patient being seen for follow up heart cath performed on 05/13/2023. He was started on Farxiga and spironolactone s/p cath. Had labs a few days ago. Still gets SOB but LE edema has been controlled. Shasha Rothman CNP advised him to take lasix prn. Patient Active Problem List Diagnosis Cardiovascular stress [...] drop Leg pain Occult blood in stools Coronary artery disease Abnormal cardiovascular stress test Family History Problem Relation Name Age of Onset Heart attack Maternal Grandfather Heart attack Paternal Grandfather Social History Tobacco Use Smoking status: Never Smokeless tobacco: Never Substance Use Topics Alcohol use: Yes Comment: occasional Drug use: Not Currently HPI Jose is seen in follow-up. He is a 68-year-old man with prior history of hypertension, hyperlipidemia [...] He was maintained on anticoagulation with Eliquis. He was seen in follow-up in May 2022 [...] lasted 2 seconds. The patient was asymptomatic. After last visit with me on 08/23/2022 I referred him to Dr. Octaviano Gutierrez again and on his review he did not have an indication having atrial fibrillation or high-grade AV block. He had recommended loop monitor. He underwent loop recorder implant in 12/2022. On 04/12/2023 he was seen in our office with worsening symptoms of shortness of breath on exertion. A stress test showed evidence of Anterior ischemia, as well as nonsustained ventricular tachycardia during stress.. His echocardiogram showed low normal ejection fraction at 50 to 55%. Cardiac catheterization on 05/13/2023 showed patent 3 out of 3 bypass grafts with moderate elevation of left filling pressures consistent with acute diastolic heart failure. He was recommended medical therapy for coronary artery disease with addition Farxiga and spironolactone due to diastolic heart failure. Today he is seen in follow-up in the office. He reports that he has been doing well. He has no anginal symptoms. He has no leg swelling. He has some shortness of breath on exertion. NYHA class II. Review of Systems Constitutional: Positive for weight loss (15# since Mar 2023). Cardiovascular: Positive for dyspnea on exertion and palpitations ( periodically ). Musculoskeletal: Positive for back pain and joint pain. Gastrointestinal: Positive for heartburn. Neurological: Positive for light-headedness. All other systems reviewed and are negative. Objective Visit Vitals BP 113/77 (BP Location: Left arm, Patient Position: Sitting) Pulse 71 Ht 1.702 m (5' 7 ) Wt 104 kg (230 lb) SpO2 97% BMI 36.02 kg/m??? Smoking Status Never BSA 2.22 m??? Physical Exam Constitutional: Appearance: He is [...] Tenderness: There is no abdominal tenderness. Musculoskeletal: Ge (more content not included)... [facility] Clinical Note 05-13-2023 Note Date & Type Note Facility 05-13-2023 Note Patient: Jose Figueroa heather Procedure Information Date/Time: 05/13/23 0830 Procedure: Coronary angiography (Left) Location: [facility] 3 / [facility] (Cath) Providers: Brissa Bright MD Clinical information reviewed: Allergies Meds Physical Exam Airway Mallampati: III Cardiovascular - normal exam Dental Pulmonary - normal exam Abdominal - normal exam Anesthesia Plan ASA 3 other ( conscious sedation) Anesthetic plan and risks discussed with patient. Use of blood products discussed with patient who consented to blood products. Plan discussed with attending. Additional Equipment Requests [facility] Progress note 04-12-2023 Note Date & Type Note Facility 04-12-2023 Note Cardiovascular Medic [facility] SUBJECTIVE Chief Complaint Patient presents with Shortness of Breath Coronary Artery Disease Jose Todd is a 67 y.o. male here [...] Drug use: Not Currently Allergies Allergen Reactions Rizhwxa-Nhb-Oce Reductase Inhibitors ROS Cardiovascular: Positive for dyspnea [...] mg/dL Final Calcium (more content not included)... [facility] Progress note 04-12-2023 Note Date & Type [...] All other systems reviewed and are negative. [facility] Progress note 01-04-2023 Note Date & Type Note Facility 01-04-2023 Note [place] Electrophysiology Consult Note Reason for visit: wound [...] A-fib V. tach or SVT. Prior HPI: Jose Todd is a 67 y.o. year old [...] Not on file Allergies: Allergies Allergen Reactions Kppwued-Cvm-Mto Reductase Inhibitors Weight: No weight available Visit [...] rales, no rhonch (more content not included)... [facility] History and physical note 07-20-2021 Note Date & Type Note Facility 07-20-2021 Note [id number] [facility] Summary Purpose Family History No Family History Records FoundNo Family History Records FoundNo Family History Records Found Advance Directives No Advanced Directives Records FoundNo Advanced Directives Records FoundNo Advanced Directives Records Found Additional Source Comments (unrecognized sect ion and content) No Status Records FoundNo Status Records FoundNo Status Records Found INFORMATION SOURCE (unrecogn ized section and content) DATE CREATED AUTHOR 09/09/2021 Garcia [facility] DATE CREATED AUTHOR AUTHOR'S ORGANIZ ATION 09/24/[address] [facility] DATE CREATED AUTHOR AUTHOR'S ORGANIZ ATION 11/08/2023 [facility] FOR RECORDS PERTAINING TO PATIENTS WHO ARE [...] BE BASED ON THE PRIMARY CLINICAL RECORDS. [employer] provides no warranty or guarantee of the accuracy or completeness of information in this document.
[2024-01-07 11:48] LABS: Alanine Aminotransferase 62 U/L (16-63); Albumin Globulin Ratio 1.1; Albumin Level 3.8 g/dL (3.4-5.0); Alkaline Phosphatase 57 U/L (46-116); Anion Gap 9.7; Aspartate Amino Transferase 45 U/L (15-37); BUN Creatinine Ratio 14.8; Bilirubin Total 1.7 mg/dL (0.2-1.0); Chloride 102 mmol/L (98-107); Chol HDL Ratio 3.1; Cholesterol 141 mg/dL (<=200); Estimated GFR (African America >60 (>=60); Estimated GFR (Non-African Ame >60 (>=60); Globulin 3.6 g/dL; Glucose 118 mg/dL (74-106); HDL Cholesterol 46 mg/dL (40-60); LDL Cholesterol Calculated 76.4 mg/dL; Potassium 4.7 mmol/L (3.5-5.1); Sodium 137 mmol/L (136-145); Total Protein 7.4 g/dL (6.4-8.2); Triglycerides 93 mg/dL (<=150); VLDL CHOLESTEROL 18.6 mg/dL
[2024-01-07 12:14] LABS: Basophils Absolute Auto 0.1 10^3/uL (0.0-0.1); Basophils Percent Auto 0.9 % (0.2-2.0); Eosinophils Absolute Auto 0.3 10^3/uL (0.0-0.7); Eosinophils Percent Auto 4.2 % (0.9-7.0); Hematocrit 52.2 % (42.0-54.0); Hemoglobin 16.7 g/dL (14.0-18.0); Immature Granulocytes Abs Auto 0.05 10^3/uL (0.00-0.03); Immature Granulocytes Pct Auto 0.7 % (0.0-0.5); Lymphocytes Absolute Auto 2.2 10^3/uL (1.2-3.8); Lymphocytes Percent Auto 33.2 % (20.5-60.0); Mean Corpuscular Hemoglobin 28.7 pg (25.9-34.0); Mean Corpuscular Volume 89.7 fL (80.0-94.0); Mean Platelet Volume 10.6 fL (9.5-13.5); Monocytes Absolute Auto 0.7 10^3/uL (0.3-0.8); Monocytes Percent Auto 10.1 % (1.7-12.0); Neutrophils Absolute Auto 3.4 10^3/uL (1.4-6.5); Neutrophils Percent Auto 50.9 % (43.0-75.0); Platelet Count 205 10^3/uL (150-450); Red Blood Count 5.82 10^6/uL (4.70-6.10); Red Cell Distribution Width 14.6 % (11.0-15.0); White Blood Count 6.7 10^3/uL (4.0-11.0)
== END 2024-01-07 10:48 | disposition home or self-care (01) ==
LOC: LAB 10:47
PROVIDERS: PCP Family Medicine; Visit Provider Internal Medicine Interventional Cardiology
DX: I50.32 Chronic diastolic (congestive) heart failure (principal); E78.2 Mixed hyperlipidemia
CPT/HCPCS: 36415; 80053; 80061; 85025

== ENCOUNTER 2024-07-24 11:54 | Outpatient (OUT) | payer MEDICARE, OTHER, SELFPAY ==
--- OUTSIDE RECORDS SUMMARY | 2024-07-24 12:03 | XMS_ITS | CCD ---
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 Role Phone JAVAN ANDERSON Admitting Unavailable HOY ., DR CHAVARRIA Primary Care Unavailable ALGHOTHANI, MOHAMAD Attending Unavailable ALGHOTHANI, MOHROBYND Consulting Unavailable HOY ., DR CHAVARRIA Consulting Unavailable HOY ., DR CHAVARRIA Primary Care Unavailable HOY ., DR CHAVARRIA Admitting Unavailable HOY ., DR CHAVARRIA Attending Unavailable ALGHOTHANI, MOHAMASuni Admitting Unavailable Kush Garsia Consulting Unavailable HOY ., DR CHAVARRIA Primary Care Unavailable ALGHOTHANI, MOHAMAD Attending Unavailable ALGHOTHANI, MOHAMAD Consulting Unavailable HOY ., DR CHAVARRIA Primary Care Unavailable HOY ., DR CHAVARRIA Admitting Unavailable HOY ., DR CHAVARRIA Attending Unavailable HOY ., DR CHAVARRIA Consulting Unavailable INLET, DR NARCISO Walker Consulting Unavailable HOY ., DR CHAVARRIA Primary Care Unavailable HOY ., DR CHAVARRIA Admitting Unavailable HOY ., DR CHAVARRIA Attending Unavailable HOY ., DR CHAVARRIA Consulting Unavailable OCTAVIANO GUTIERREZ Referring Unavailable JAYNA, OCTAVIANO Referring Unavailable MONIE, BERTA Referring Unavailable BRISSA KANG Attending Unavailable BRISSA KANG Attending Unavailable MONIE, BERTA Referring Unavailable MONIE, BERTA Referring Unavailable MONIE, BERTA Referring Unavailable MONIE, BERTA Referring Unavailable MONIE, BERTA Referring Unavailable JAYNA, OCTAVIANO Referring Unavailable Allergies Allergy Classification Reported Allergen(s) Allergy Type Date of Onset Reaction(s) Facility (1 source) Amino Acids Drug Allergy 6 [facility] (1 source) Hmg-Coa Reductase Inhibitors (Statins); Translations: [[id number] REDUCTASE INHIBITORS] Propensity to adverse reactions to drug (disorder) 2 [facility] Repository Problems Active Problems Problem Classification Problem Date Documented Date Episodic/Chronic Cardiac dysrhythmias (2 sources) Unspecified atrial fibrillation; Translations: [Unspecified atrial fibrillation] Onset: 04-24-2022 Chronic Cardiac dysrhythmias (2 sources) Palpitations; Translations: [Palpitations] Onset: 03-07-2024 Episodic Conduction disorders (2 sources) Other atrioventricular block; Translations: [Other atrioventricular block] Onset: 01-06-2024 Chronic Congestive heart failure; nonhypertensive (3 sources) Unspecified diastolic (congestive) heart failure; Translations: [Chronic diastolic (congestive) heart failure] Onset: 04-07-2022 Chronic Coronary atherosclerosis and other heart disease (2 sources) Atherosclerotic heart disease of [place] coronary artery without angina pectoris; Translations: [Atherosclerotic heart disease of [place] coronary artery without angina pectoris] Onset: 05-11-2023 [...] Onset: 04-14-2022 Episodic Other lower respiratory disease (1 source) Other forms of dyspnea; Translations: [OTHER FORMS OF DYSPNEA] Onset: 04-17-2022 Episodic Other nervous system disorders (4 sources) Other acute postprocedural pain; Translations: [OTHER ACUTE POSTPROCEDURAL PAIN] Onset: 05-19-2022 Episodic Other nutritional; endocrine; and metabolic disorders (1 source) Overweight; Translations: [OVERWEIGHT] Onset: 04-17-2022 Episodic Other screening for suspected conditions (not mental disorders or infectious disease) (2 sources) Abnormal results of liver function studies; Translations: [Encounter for screening for malignant neoplasm of prostate] Onset: 04-07-2022 Episodic Results Test Name Value Interpretation Reference Range Facility 36on 01-17-2024 36 Regarding lab result s from 01/07/2024: MD Reina Bowman MA Blood test was ok, follow up in 1 year. LM on . Normal [facility] Office Visiton 01-06-2024 Follow-up visit [id number] Jose Todd 1955 [facility] 01/06/2024 BRISSA ESCOBAR EFRAÍN Delgado [facility] Family History Problem Relation Age of Onset Heart attack Maternal Grandfather Heart attack Paternal Grandfather Family Status - Relation Status Age at Maternal Grandfather Paternal Grandfather Level of Service:22849 MO OFFICE/OUTPATIENT ESTABLISHED LOW MDM 20 MIN Normal [facility] Office Visiton 06-17-2023 Follow-up visit [id number] Jose Todd 1955 [facility] 06/17/2023 BRISSA ESCOBAR EFRAÍN Delgado [facility] Family History Problem Relation Age of Onset Heart attack Maternal Grandfather Heart attack Paternal Grandfather Family Status - Relation Status Age at Maternal Grandfather Paternal Grandfather Level of Service:21899 MO OFFICE/OUTPATIENT ESTABLISHED LOW MDM 20 MIN Normal [facility] GLYCOHEMOGLOBIN A1Con 2022 ADA RECOMMENDATION SEE BELOW Normal [facility] Comment on above: Result Comment: ADA RECOMMENDED LIMIT 4.0 - 6.0 ADA THERAPEUTIC TARGET < 7.0 ACTION SUGGESTED > 7.0 Performed By: #### A 1C #### [facility] [address] [address] [address] Tiny Miranda Glucose [Mass/Vol] 123 mg/dL Normal [facility] Comment on above: Performed By: #### A 1C #### [facility] [address] [address] [address] Tiny Miranda HbA1c (Bld) [Mass fraction] 5.9 % Normal 4.5-6.2 [facility] Comment on above: Performed By: #### A 1C #### [facility] [address] [place] [address] Dr. Tiny Miranda LIPID PROFILEon 06-28-2022 CHOL-HDL RATIO NORM SEE BELOW Normal [facility] Comment on above: Result Comment: 3.3 - 4.4 LOW RISK 4.4 - 7.1 AVERAGE RISK 7.1 - 11.0 MODERATE RISK >11.0 HIGH RISK Performed By: #### L IVROQUE, LIPID #### [facility] [address] [place] [address] Dr. Tiny Miranda Cholesterol [Mass/Vol] 132 mg/dL Normal <=200 [facility] Comment on above: Performed By: #### L IVROQUE, LIPID #### [facility] [address] [place] [address] Dr. Tiny Miranda Cholesterol in HDL [Mass/Vol] 39 mg/dL Critically low 40-60 [facility] Comment on above: Performed By: #### L IVROQUE, LIPID #### [facility] [address] [address] [address] Tiny Miranda Cholesterol in LDL [Mass/Vol] 70.2 mg/dL Normal [facility] Comment on above: Performed By: #### L IVER, LIPID #### [facility] [address] [place] [address] Dr. Tiny Miranda Cholesterol.total/Cho lesterol in HDL [Mass ratio] 3.4 {ratio} Normal [facility] Comment on above: Performed By: #### L IVER, LIPID #### [facility] [address] [place] [address] Dr. Tiny Miranda HDL NORMAL > or = 60 mg/dl - LO W CARDIOVASCULAR RISK <40 mg/dl - HIGH CARDIOVASCULAR RISK Normal [facility] Comment on above: Performed By: #### L IVER, LIPID #### [facility] [address] [address] [address] Tiny Miranda LDL CALC NORMAL SEE BELOW Normal [facility] Comment on above: Result Comment: <100 mg/dl OPTIMAL 100 - 129 mg/dl NEAR OR ABOVE OPTIMAL 130 - 159 mg/dl BORDERLINE HIGH 160 - 189 mg/dl HIGH >190 mg/dl VERY HIGH Performed By: #### L IVER, LIPID #### [facility] [address] [address] [address] Tiny Miranda Triglyceride [Mass/Vol] 114 mg/dL Normal <=150 [facility] Comment on above: Performed By: #### L IVER, LIPID #### [facility] [address] [address] [address] Tiny Miranda VLDL CALC 22.8 mg/dL Normal [facility] Comment on above: Performed By: #### L IVER, LIPID #### [facility] [address] [address] [address] Tiny Miranda LIVER PROFILEon 06-28-2022 Albumin [Mass/Vol] 3.6 g/dL Normal 3.4-5.0 [facility] Comment on above: Performed By: #### L IVER, LIPID #### [facility] [address] [address] [address] Tiny Miranda Albumin/Globulin [Mass ratio] 1.0 {ratio} Normal [facility] Comment on above: Performed By: #### L IVER, LIPID #### [facility] [address] [address] [address] Tiny Miranda ALP [Catalytic activity/Vol] 48 U/L Normal 46-116 [facility] Comment on above: Performed By: #### L IVER, LIPID #### [facility] [address] [address] [address] Tiny Miranda ALT [Catalytic activity/Vol] 39 U/L Normal 16-63 [facility] Comment on above: Performed By: #### L IVER, LIPID #### [facility] [address] [address] [address] Tiny Miranda AST [Catalytic activity/Vol] 26 U/L Normal 15-37 [facility] Comment on above: Performed By: #### L IVER, LIPID #### [facility] [address] [address] [address] Tiny Miranda BILI, CONJUGATED 0.1 mg/dL Normal 0.0-0.2 [facility] Comment on above: Performed By: #### L IVER, LIPID #### [facility] [address] [address] [address] Tiny Miranda Bilirubin [Mass/Vol] 0.6 mg/dL Normal 0.2-1.0 [facility] Comment on above: Performed By: #### L IVER, LIPID #### [facility] [address] [address] [address] Tiny Miranda Globulin (S) [Mass/Vol] 3.6 g/dL Normal [facility] Comment on above: Performed By: #### L IVER, LIPID #### [facility] [address] [address] [address] Tiny Miranda Protein [Mass/Vol] 7.2 g/dL Normal 6.4-8.2 [facility] Comment on above: Performed By: #### L IVER, LIPID #### [facility] [address] [address] [address] Tiny Miranda PROF CHEM 8 (BAS METB)on Anion gap [Moles/Vol] 12.4 mmol/L Normal [facility] [place] [facility] Comment on above: Performed By: #### B MP ####[facility] [address] [address]Dr[address] Tiny Miranda Calcium [Mass/Vol] 9.2 mg/dL Normal 8.5-10.1 [facility] Comment on above: Performed By: #### B MP ####[facility] [address] [address]Dr. Tiny Miranda Chloride [Moles/Vol] 104 mmol/L Normal 98-107 [facility] Comment on above: Performed By: #### B MP ####[facility] [address] [address]Dr. Josielisa Ruben CO2 [Moles/Vol] 30.5 mmol/L Normal 21.0-32.0 [facility] Comment on above: Performed By: #### B MP ####[facility] [address] [address]Dr. Tiny Miranda Creatinine [Mass/Vol] 1.12 mg/dL Normal 0.70-1.30 [facility] Comment on above: Performed By: #### B MP ####[facility] [address] [address]Dr. Tiny Miranda EGFR-AF PAKISTANI >60 Normal >=60 [facility] Comment on above: Performed By: #### B MP ####[facility] [address] [address]Dr[address] Tiny Miranda EGFR-NON AF PAKISTANI >60 Normal >=60 [facility] Comment on above: Performed By: #### B MP ####[facility] [address] [place], [place] [address]Dr. Tiny Miranda Glucose [Mass/Vol] 121 mg/dL Critically high 74-106 [facility] Comment on above: Performed By: #### B MP ####[facility] [address] [address]Dr[address] Tiny Miranda Potassium [Moles/Vol] 4.9 mmol/L Normal 3.5-5.1 [facility] Comment on above: Performed By: #### B MP ####[facility] [address] [address]Dr[address] Tiny Miranda Sodium [Moles/Vol] 142 mmol/L Normal 136-145 [facility] Comment on above: Performed By: #### B MP ####[facility] [address] [address]Dr. Tiny Miranda Urea nitrogen [Mass/Vol] 14.0 mg/dL Normal 7.0-18.0 [facility] Comment on above: Performed By: #### B MP ####[facility] [address] [place], [place] [address]TtColeman Miranda Urea nitrogen/Creatinine [Mass ratio] 12.5 mg/mg Normal [facility] Comment on above: Performed By: #### B MP ####[facility] [address] [place], [place] [address]DgColeman Miranda US MARY DOP LEG LTon 05-19-19 [...] by: KUSH GARSIA Date: 2022-05-19 16:48 Normal [facility] NM STRESS/REST MULTIon 04-14 NM STRESS/REST MULTI Patient: JOSE TODD Exam Date: 04/14/2022 : 1955 Gender:M Ordering : DR DEON MIR . Admission #: [id number] Family : Order #: [id number] CLICK HERE TO VIEW EXAM RADIOLOGY REPORT [...] MD on 04/15/2022 at 07:51 Normal [facility] HEPATITIS PANEL, ACUTEon HBsAg Screen Negative Normal Negative [facility] Comment on above: Performed By: #### H EPACUT ####[facility] [address] [address]Dr. Tiny Miranda HCV AB <0.1 Normal 0.0-0.9 [facility] Comment on above: Performed By: #### H EPACUT ####[facility] [address] [address]Dr. Tiny Miranda Hep A Ab, IgM Negative Normal Negative [facility] Comment on above: Performed By: #### H EPACUT ####[facility] [address] [address]Dr. Tiny Miranda Hep B Core Ab, IgM Negative Normal Negative [facility] Comment on above: Performed By: #### H EPACUT ####[facility] [address] [id number][address] Tiny Miranda Interpretation: Comment Normal [facility] Comment on above: Result Comment: Nega tive Not infected with HCV, unless recent infection is suspected or other evidence exists to indicate HCV infection. Performed By: #### H EPACUT ####[facility] [address] [address]Dr. Tiny Miranda INSULINon 04-06-2022 Insulin 51.4 uIU/mL Critically high 2.6-24.9 [facility] Comment on above: Performed By: #### I NSULIN ####[facility] [address] [place], [place] [address]RzDr. Tiny Miranda BNPon 04-05-2022 Natriuretic peptide B (Bld) [Mass/Vol] 20.0 pg/mL Normal <=900.0 [facility] Comment on above: Performed By: #### C MP, BNP, LIPID #### [facility] [address] [address] [address] Tiny Miranda CBC AUTO DIFFon 04-05-2022 BASO # 0.1 103/ul Normal 0.0-0.1 [facility] Comment on above: Performed By: #### C BC #### [facility] [address] [address] [address] Tiny Miranda Basophils/100 WBC (Bld) 1.8 % Normal 0.2-2.0 [facility] Comment on above: Performed By: #### C BC #### [facility] [address] [place] [address] Dr. Tiny Miranda EO # 0.2 103/ul Normal 0.0-0.7 [facility] Comment on above: Performed By: #### C BC #### [facility] [address] [place] [address] Dr. Tiny Miranda Eosinophils/100 WBC (Bld) 3.9 % Normal 0.9-7.0 [facility] Comment on above: Performed By: #### C BC #### [facility] [address] [place] [address] Dr. Tiny Miranda Erythrocyte distribution width (RBC) [Ratio] 12.9 % Normal 11.0-15.0 [facility] Comment on above: Performed By: #### C BC #### [facility] [address] [place] [address] Dr. Tiny Miranda Hematocrit (Bld) [Volume fraction] 47.8 % Normal 42.0-54.0 [facility] Comment on above: Performed By: #### C BC #### [facility] [address] [place] [address] Dr. Tiny Miranda Hemoglobin (Bld) [Mass/Vol] 16.5 g/dL Normal 14.0-18.0 [facility] Comment on above: Performed By: #### C BC #### [facility] [address] [place] [address] Dr. Tiny Miranda IG # 0.03 10e3/ul Normal 0.00-0.03 [facility] Comment on above: Performed By: #### C BC #### [facility] [address] [place] [address] Dr. Tiny Miranda IG % 0.5 % Normal 0.0-0.5 [facility] Comment on above: Performed By: #### C BC #### [facility] [address] [place] [address] Dr. Tiny Miranda LYMPH # 1.8 103/ul Normal 1.2-3.8 [facility] Comment on above: Performed By: #### C BC #### [facility] [address] [place] [address] Dr. Tiny Miranda Lymphocytes/100 WBC (Bld) 31.2 % Normal 20.5-60.0 [facility] Comment on above: Performed By: #### C BC #### [facility] [address] [place] [address] Dr. Tiny Miranda MANUAL DIFF REQ NO Normal [facility] Comment on above: Performed By: #### C BC #### [facility] [address] [place] [address] Dr. Tiny Miranda MCH (RBC) [Entitic mass] 32.4 pg Normal 25.9-34.0 [facility] Comment on above: Performed By: #### C BC #### [facility] [address] [place] [address] Dr. Tiny Miranda MCHC (RBC) [Mass/Vol] 34.5 g/dL Normal 29.9-35.2 [facility] Comment on above: Performed By: #### C BC #### [facility] [address] [place] [address] Dr. Tiny Miranda MCV (RBC) [Entitic vol] 93.7 fL Normal 80.0-94.0 [facility] Comment on above: Performed By: #### C BC #### [facility] [address] [place] [address] Dr. Tiny Miranda MONO # 0.4 103/ul Normal 0.3-0.8 [facility] Comment on above: Performed By: #### C BC #### [facility] [address] [place] [address] Dr. Tiny Miranda Monocytes/100 WBC (Bld) 6.9 % Normal 1.7-12.0 [facility] Comment on above: Performed By: #### C BC #### [facility] [address] [place] [address] Dr. Tiny Miranda NEUT # 3.2 103/ul Normal 1.4-6.5 [facility] Comment on above: Performed By: #### C BC #### [facility] [address] [place] [address] Dr. Tiny Miranda Neutrophils/100 WBC (Bld) 55.7 % Normal 43.0-75.0 [facility] Comment on above: Performed By: #### C BC #### [facility] [address] [place] [address] Dr. Tiny Miranda Platelet mean volume (Bld) [Entitic vol] 9.0 fL Critically low 9.5-13.5 [facility] Comment on above: Performed By: #### C BC #### [facility] [address] [place] [address] Dr. Tiny Miranda PLT 219 103/ul Normal 150-450 [facility] Comment on above: Performed By: #### C BC #### [facility] [address] [place] [address] Dr. Tiny Miranda RBC 5.10 106/ul Normal 4.70-6.10 [facility] Comment on above: Performed By: #### C BC #### [facility] [address] [place] [address] Dr. Tiny Miranda WBC 5.7 103/ul Normal 4.0-11.0 [facility] Comment on above: Performed By: #### C BC #### [facility] [address] [address] [address] Tiny Miranda GLYCOHEMOGLOBIN A1Con 2021 ADA RECOMMENDATION SEE BELOW Normal [facility] Comment on above: Result Comment: ADA RECOMMENDED LIMIT 4.0 - 6.0 ADA THERAPEUTIC TARGET < 7.0 ACTION SUGGESTED > 7.0 Performed By: #### A 1C #### [facility] [address] [place] [address] Dr. Tiny Miranda Glucose [Mass/Vol] 140 mg/dL Normal [facility] Comment on above: Performed By: #### A 1C #### [facility] [address] [place] [address] Dr. Tiny Miranda HbA1c (Bld) [Mass fraction] 6.5 % Critically high 4.5-6.2 [facility] Comment on above: Performed By: #### A 1C #### [facility] [address] [place] [address] Dr. Tiny Miranda LIPID PROFILEon 04-05-2022 CHOL-HDL RATIO NORM SEE BELOW Normal [facility] Comment on above: Result Comment: 3.3 - 4.4 LOW RISK 4.4 - 7.1 AVERAGE RISK 7.1 - 11.0 MODERATE RISK >11.0 HIGH RISK Performed By: #### C MP, BNP, LIPID #### [facility] [address] [place] [address] Dr. Tiny Miranda Cholesterol [Mass/Vol] 241 mg/dL Critically high <=200 [facility] Comment on above: Performed By: #### C MP, BNP, LIPID #### [facility] [address] [place] [address] Dr. Tiny Miranda Cholesterol in HDL [Mass/Vol] 41 mg/dL Normal 40-60 [facility] Comment on above: Performed By: #### C MP, BNP, LIPID #### [facility] [address] [place] [address] Dr. Tiny Miranda Cholesterol in LDL [Mass/Vol] 167.6 mg/dL Normal [facility] Comment on above: Performed By: #### C MP, BNP, LIPID #### [facility] [address] [place] [address] Dr. Tiny Miranda Cholesterol.total/Cho lesterol in HDL [Mass ratio] 5.9 {ratio} Normal [facility] Comment on above: Performed By: #### C MP, BNP, LIPID #### [facility] [address] [place] [address] Dr. Tiny Miranda HDL NORMAL > or = 60 mg/dl - LO W CARDIOVASCULAR RISK <40 mg/dl - HIGH CARDIOVASCULAR RISK Normal [facility] Comment on above: Performed By: #### C MP, BNP, LIPID #### [facility] [address] [place] [address] Dr. Tiny Miranda LDL CALC NORMAL SEE BELOW Normal [facility] Comment on above: Result Comment: <100 mg/dl OPTIMAL 100 - 129 mg/dl NEAR OR ABOVE OPTIMAL 130 - 159 mg/dl BORDERLINE HIGH 160 - 189 mg/dl HIGH >190 mg/dl VERY HIGH Performed By: #### C MP, BNP, LIPID #### [facility] [address] [place] [address] Dr. Tiny Miranda Triglyceride [Mass/Vol] 162 mg/dL Critically high <=150 [facility] Comment on above: Performed By: #### C MP, BNP, LIPID #### [facility] [address] [place] [address] Dr. Tiny Miranda VLDL CALC 32.4 mg/dL Normal [facility] Comment on above: Performed By: #### C MP, BNP, LIPID #### [facility] [address] [place] [address] Dr. Tiny Miranda PROF 14(COMP METB)on 022 Albumin [Mass/Vol] 4.0 g/dL Normal 3.4-5.0 [facility] Comment on above: Performed By: #### C MP, BNP, LIPID #### [facility] [address] [place] [address] Dr. Tiny Miranda Albumin/Globulin [Mass ratio] 1.0 {ratio} Normal [facility] Comment on above: Performed By: #### C MP, BNP, LIPID #### [facility] [address] [place] [address] Dr. Tiny Miranda ALP [Catalytic activity/Vol] 56 U/L Normal 46-116 [facility] Comment on above: Performed By: #### C MP, BNP, LIPID #### [facility] [address] [place] [address] Dr. Tiny Miranda ALT [Catalytic activity/Vol] 154 U/L Critically high 16-63 [facility] Comment on above: Performed By: #### C MP, BNP, LIPID #### [facility] [address] [place] [address] Dr. Tiny Miranda Anion gap [Moles/Vol] 10.9 mmol/L Normal [facility] [place] [facility] Comment on above: Performed By: #### C MP, BNP, LIPID #### [facility] [address] [place] [address] Dr. Tiny Miranda AST [Catalytic activity/Vol] 86 U/L Critically high 15-37 [facility] Comment on above: Performed By: #### C MP, BNP, LIPID #### [facility] [address] [place] [address] Dr. Tiny Miranda Bilirubin [Mass/Vol] 0.8 mg/dL Normal 0.2-1.0 [facility] Comment on above: Performed By: #### C MP, BNP, LIPID #### [facility] [address] [place] [address] Dr. Tiny Miranda Calcium [Mass/Vol] 9.0 mg/dL Normal 8.5-10.1 [facility] Comment on above: Performed By: #### C MP, BNP, LIPID #### [facility] [address] [place] [address] Dr. Tiny Miranda Chloride [Moles/Vol] 102 mmol/L Normal 98-107 [facility] Comment on above: Performed By: #### C MP, BNP, LIPID #### [facility] [address] [place] [address] Dr. Tiny Miranda CO2 [Moles/Vol] 28.3 mmol/L Normal 21.0-32.0 [facility] Comment on above: Performed By: #### C MP, BNP, LIPID #### [facility] [address] [address] [address] Tiny Miranda Creatinine [Mass/Vol] 1.12 mg/dL Normal 0.70-1.30 [facility] Comment on above: Performed By: #### C MP, BNP, LIPID #### [facility] [address] [address] [address] Tiny Miranda EGFR-AF PAKISTANI >60 Normal >=60 [facility] Comment on above: Performed By: #### C MP, BNP, LIPID #### [facility] [address] [address] [address] Tiny Miranda EGFR-NON AF PAKISTANI >60 Normal >=60 [facility] Comment on above: Performed By: #### C MP, BNP, LIPID #### [facility] [address] [address] [address] Tiny Miranda Globulin (S) [Mass/Vol] 4.1 g/dL Normal [facility] Comment on above: Performed By: #### C MP, BNP, LIPID #### [facility] [address] [address] [address] Tiny Miranda Glucose [Mass/Vol] 132 mg/dL Critically high 74-106 [facility] Comment on above: Performed By: #### C MP, BNP, LIPID #### [facility] [address] [address] [address] Tiny Miranda Potassium [Moles/Vol] 4.2 mmol/L Normal 3.5-5.1 [facility] Comment on above: Performed By: #### C MP, BNP, LIPID #### [facility] [address] [address] [address] Tiny Miranda Protein [Mass/Vol] 8.1 g/dL Normal 6.4-8.2 [facility] Comment on above: Performed By: #### C MP, BNP, LIPID #### [facility] [address] [address] [address] Tiny Miranda Sodium [Moles/Vol] 137 mmol/L Normal 136-145 [facility] Comment on above: Performed By: #### C MP, BNP, LIPID #### [facility] [address] [place], [place] [address] Dr. Tiny Miranda Urea nitrogen [Mass/Vol] 15.0 mg/dL Normal 7.0-18.0 [facility] Comment on above: Performed By: #### C MP, BNP, LIPID #### [facility] [address], [place] [address] Dr. Tiny Miranda Urea nitrogen/Creatinine [Mass ratio] 13.4 mg/mg Normal [facility] Comment on above: Performed By: #### C MP, BNP, LIPID #### [facility] [address], [place] [address] Dr. Tiny Miranda Reminderson 09-08-2021 Reminders - From: Aguilar Sanchez To: [facility] - Reminders/Recalls; Sent: 09/07/2021 22:51:37 EDT Show up: 07/14/2026 22:51:00 EST Subject: Ambulatory Reminder Due Date/Time: 08/14/2026 22:51:00 EDT Reminder/Recall colonoscopy reminder 5 years Normal [facility] IntraOperative Documentson 0 07-27-2021 IntraOperative Documents [id number]# 1.00CD:127 Normal [facility] Postoperative Documentson Postoperative Documents [id number]#1 .00CD:127 Normal [facility] Coding Summary.on 07-21-2021 Coding Summary. CD:[id number] G h0bWw+PGhlYWQ+GD2KQNF cK79jtPFxwB8ZA9mXSB8P UOBQIUJDTV4HAQ7zgIB9N DgbY0YasmYv VfputBOrPP00CEp2YTS6k TlkMSjvyQ2wrJNfX6z4Vo HbCD32eC06DFfiXDZtOrJ 3LjZpbjsgbWFy K4sjNyPfyJZlUyz+PHRhY mxlIHdpZHRoPScxMDAlJy OktTtyXA7tTx4jLSVmVKO vbGxhcHNlOiBj o7znUQHtRMzoJA3vlKqwD 8CxyFJ5YEYhi2x1Fb52yB I+EIDqLYA1kFaoYIqsb85 1YuIun0mpPXQ9 yYLzSLfoWAE3I57ej3A3X PBaULBhRLO4cDD6oV6emL stjtqvH2HmcRGbLuV8XFG 8lFXjuD8esYco neekzA2uSbx+L43MYR4DY MOONO6SQux8T8HyVjdhaM I+NB90HQThDJ43jSPhkHU ca2rltCn2BfDy HPZgFLA3aYokRAtwb1SnH DAuQ68weFHeg4B3LLSsoN ilnDLtRcYkmOO5jY5zDLz kujupf3iphrgl Okpbq1ygip51yW03Y56oL YlaROIyWNM0ZODhESSlcU svnt1yoG6fRx6+IEskl6q wm9bayLx8OfQv OXRvhsMmsBcfDLM1e2JgC t63Z0JfqXqre1RfVtz0jf 88qLJqb6P2ePU6TErmAGA ybB6mINrmVvA5 HKOeFdQlmN87tWJoXXsaY p0rwVlvgZlyEL7xXXTjzw vbXSRsfU3kGZWfmUDteRu vAF3nUJHlvfpu k335SzBzNJP3KYUptOSrG 9MylJ8mDgUfKAOqDLFaS3 EtiMHdHRyaO687ZDfxIfE 0FEBlxtPtX8Gr XWKkzIymOoO7l9B5Bx2Ii 2OknyukXZE0ROwxZYVuRy T6KsVkRgT7D7QoWsg5LMB goEypMU0xQ3Bc EQZwnaobzfealFS3MGZcD DInuK64mDSdBVhyNx4xl2 I4z507ZMHkQYTzbU78Dw3 udDogMTBwdCBU jC5khnmsr0inodrnWaFeR UGkZFa2KZk3XPLxbRhkQn XbBAR1CvB9FBR0jQEflR7 ahNuufzpmfM1b Oyc+G34ozV8rURV8XED2t gcaBNNlxjGmOD73QY18Q3 RyPjwvdGFibGU+PGRpdiB xbNpxQF4oWsKj a4zjx3WuQSulC4BxWZRnM ZrfCrw3ZTOwNPU3xMM0yZ 9cHWHwZDeho0R6nQU5H0C qukIgli3lb4vl MXKsOWytW75afLXcm2L5A EQlwKP9MTSvcQumJrBqbU 93Oyc+ULNaiYrfz2WaQas ce7dkb0kstVl8 DyAwXWTksxUghZejZQM5i 7HzQn05I80nNAmfMXSoVK RhQEZgBWLpcYivuf1joS9 wIi8+PGNvbCB3 qIA2jG1mKQHnQoZ1DDssH 232BjQlcIOlMulhc1uon2 gqhVk9KuHfEDLlelEhwPh aWVT6v6YpWr45 H17oVHqjUFNgKEYeHWZwD EMqcCnhqr1osG5oKz3+PC 4qg5bxmg56sT05cDH+PHR jRPV4lHbrUGmg HVDizR5tUDyeZnN4GEEhE lEwzF96tCQoORvgQt3mgE oypQfjTR7yWHNdgofbi26 9HlZit3olSFEt gOPgHUsdPWQ1Y75zv6O6F IOqVQVfXCB4mWM5lI3heM lnbjogbGVmdDsgdmVydGl cEKyaWAgwK201 IHRvcDsnPlBhdGllbnQgT xYlYUn4I4MoXtz9CVZreP ydEY3ubUIhCTwdUr2zsSd drBfbAA6aTTRg qvbqe973WkDvb6uqVFSro FJhIJqyMEY8P99ni2L9UF GoUUZpCYQ9vMP3sS4jgVf nbjogbGVmdDsg xhJwuXezLUdaUXwkV541M HRvcDsnPkJpcnRoIERhdG H0VS09QV45xHDmw5B0oSV 3P3AxWETukodb ptdssWA7HBRsMSQqsP76S k6epRquJf7uNPWyDTR3LW RbwTTpQ5MbdR0oUpKmKPJ mLUTmS2LbxYDi QEnhT941SEbbMrH6IWZfg hWlQ5HrTMSlkIrkFgZ8d3 M4Ww4ZD0S7YE70OZ41oRR rc0T9cWR9Y4Km CDEnkvqfxwdgiIW0XTQzO QGtmR48Ig7rnPogCp3nXU VkGKO8SIHkpZHvN6NpxM9 yOiAjMDAwMDAw H8VqzGOpSHxuE478PXirK oD5HCCwgrQfG8PtXTNxuS ugQcJ3m3N6Dm1KWRt8WZ7 6XF25tGRfj3Z7 pJE5Y5YjLIAchoqvblhkw UP1LSExVPQyuM21Bl7noV teFn0tLINzQYB6UOXivBQ qB2CzoJ2dWnTz BKMhPINwI2IenHGcONcgU 423TJnpNhW0XRMtjuUxA7 CoHQIqjFstWxG7n5I6Pj9 IFAQkJK80ZVG2 mHX2MK80CD46I6KwNuetr GFibGU+PHRhYmxlIHdpZH RoPScxMDAlJyBzdHlsZT0 rTf9aHLZmKLFs uEwgtBLeHmFph6hfFVPiX XevCU4nmTpbW5GudZI0QO Yhj1l6Gw37N22tT9LbzQM +TPYukKH4kCJ9 iB5uEtBbMaK9RRmrH493E oTizAIwNvukv3vnc3zdvL w0LbH3PNAlbpHtxRqmPAO 5n4XtTn99D59o IHdpZHRoPSIxNSUiIHZhb Iobex4fnN5qSl0+PGNvbC X1yXY4wF8wJvPuPoP2XSk hT983IiIqsFFm Rntfv4fhq0nbbUj1AjZhO IBjvjBqaVhpMLS5r0VhAh 11E1WjmNxwl0XhWci8mg1 6yFWtm5R1sAP2 G4PhTMEjowbtqGBoiFcdC V6yQQDzxdvbWRCsdJ1zUX SaN9n5YaIxSuQ1FUcxF5E vecL1UODykWAj ZVziLQL7Q51jg3M7HUNzI ENuPVT0lGD5gJ1mrIlgbt ogbGVmdDsgdmVydGljYWw vEUcaX622GUWg hSzwZLTvoO9wCMGkeZByw NyhRX0gPAMinxxaMuCKNh VTZvEmZKlUSGgCMS9qDXc vdGQ+PHRkIHN0 uDyoBRvoHPMrhE5tHBOrW 3x6UkSuZqN7NNuzO6OaAE VrlrqjPc03vS8gJkRaOdH 7MTktF8FfdeA5 HIDivHQdCMbrBRM7K09ty 7O1LGZhNASvQKA0xWV6eU 1hbGlnbjogbGVmdDsgdmV ydGljYWwtYWxp P238SBEouPwyTzQgImZzA hN4BEI3K3AdNid5VYUmtE woNX7njLWgVHebWo9leNo ewHlrGS9oYUNh lctwORIfjK4fUJMrvNRzm SvfFK0sBKPkpzhdf610Ip GuNZU9TBGnkRLqT4TloV7 yOiAjMDAwMDAw B4XcfEWvXUsrN393DJwoQ iO5SQAscePjG3UuCKPhdM lwJpD5h7F4Ra31NGSNBLF yczwvdGQ+PHRk PDJ8fExqFUjbDNArkO6bG FAoJ6h8QmQiYeO4RPonZ4 EnCFGpgzgnUl81pK1pDeZ kMeC4UKnuL3Yc utJ9LANsgRJsNNvwJTB2S 47sc2K4KDEoZLIgNLR9oT J9fD1bzAwhhjoolPGjdJq gdmVydGljYWwt HWwlE526FDCnhCseBf8da VM2O1VuPrw9AJIoyVxgOW 1ykACoJNnaEh6jwSinqFt rIW8fJPMnbbwb MCCtbD3hWVRbsFVwlXfbB U4bFTHedmoff616NwUoAK F4IXDhzUImN7MtrN6qOhW tNDCsBDBkN8Lw yQPeBFxjK716ZEdvXlA5M XCkblGgU2JwWVNhwQscNq S0v3N6Tv8OcOAdZDUjKY5 3TE99BI33K6My PjwvdGFibGU+PHRhYmxlI HdpZHRoPScxMDAlJyBzdH miJO3mVy7yEKKdGWBqtHj sgDYnIiWzz9ni XAJfJBelEB3tzTcfV8Xjr QY7VSWor2p7Id17G58tO4 JvdXA+VPLswTM2rWZ4bH5 eLvZwSuJ4YNqr K206BjBquOSzWlhyc3swv 1fclXx0LbRaRQStlyNzwA arDBI1e2OwWo36J08kYDc pZHRoPSIyMCUi JITuwVmjvw8ulK5yLg2+P BApmDW7rME0wY1pKuMfFy V1DFdsX170ZsMtkILfSzi hB30qF5NruUJ+ YVSlFoa5DLVfpTaaAS2wp WIqUGbhUd2ySQE1SmTgQy DlZWwzM3YtWJGybnazcbh cdPB2HNXvZUGu xL24Gu2tlGuyWk0kZVIpI JV5KCIwxGMmV2FguH2sSk HeCVZvAIStO0DgmTWxWCa qB825CGjnYuE8 MOIxpkXfQ0DaASHwiXijR oQ9y4Y1Bq3MaOxuuJPdBY 4pDrFsLGq6G8CeKcv0SWT bjEbhLT4vpHCe AUwbTk2jvGswjOgdSU0gA FIyejtix850ZxSxo1mhEK VvqLRgTFocGUK9J90jc7Q 5CKJnWDIxYIK0 vXL8kN4anDzvzxlbcXImw DsgdmVydGljYWwtYWxpZ2 63PSJwpQiiIhKAPjp1I0C dTli3EHIteZzh EW1zkWRcGNxoCw8jcTuzp DroBG8nJDUikpgef053Jo Roh1mwIVHozBCfMAkjQHR 3Q44qb6M1PVQx ZVNhNEW4sOR9hK1ltUtyf jogbGVmdDsgdmVydGljYW haOBhfZ065MJJmiBmeQy6 IHkl3B1LfQko3 NLQkmVviUU6zcGGdNJdfN s9csGscpMcqOK0dKESklt vsk461BqStr5yjZFYubGB mJFxnWYV3Q76f w3I2MMKdIYJcPZC3dOJ8p C8tlOfejmkfqEZwoArrxz PeeMsvGLwdLQdnK317BRE vcDsnPlBheWVy OjwvdGQ+FK81wi24S1WcW fciDnz4EAEfBNG1fAA2rP 3kLWUiYStty2G4fAM4T1H okoHvzu6al0xo YXBz (more content not included)... Normal [facility] Main OR Intraoperative Recor don 07-21-2021 Main OR Intraoperative Record IntraOp Document Type FT Summary Primary Physician: Rebecca SARAVIA MD Finalized Date/Time: 07/21/21 12:04:08 Pt. Name: JOSE TODD /Sex: 1955 Male Med Rec #: [id number] Physician: MANJIT WILSON, Rebecca Financial #: [id number] Pt. Type: O Room/Bed: / Admit/Disch: 07/17/21 11:12:18 - 07/17/21 23:59:59 Institution: Case Times FT Entry 1 Patient Times In Room 07/17/21 12:31:00 Out Room 07/17/21 12:44:00 Procedure Times Start 07/17/21 12:34:00 Stop 07/17/21 12:41:00 Anesthesia Times Start 07/17/21 12:31:00 Stop 07/17/21 12:44:00 Last Modified By: Zuhair Mccullough RN 07/17/21 12:45:13 General Comments: 07/21/21 chart open to review and send charges l tressa rn Case Attendance FT Entry 1 Entry 2 Entry 3 Case Attendee Ashley Bell MD, Rebecca Mccullough RN, Zuhair Burrows Role Performed Anesthesiologist Surgeon - Primary Laminated [employer]astics Assembler And Gluer - Primary [employer] Pipeline Supervisor Time In 07/17/21 12:31:00 07/17/21 12:31:00 07/17/21 [...] COLONOSCOPY(.) COLONOSCOPY(.) Comments Last Modified By: Sadia ARANA, Zuhair Rodrigez RN 07/17/21 12:45:14 07/17/21 12:45:14 Perioperative Protocols FT [...] Side Right (more content not included)... Normal [facility] Consenton 07-20-2021 Consent [id number]# 1.00CD:127 [facility] Discharge Instructionson Discharge Instructions [id number]# 1.00CD:127 [facility] IntraOperative Documentson 0 07-20-2021 IntraOperative Documents [id number]# 1.00CD:127 [facility] IntraOperative Documents [id number]# 1.00CD:127 [facility] Consent for Treatmenton Consent for Treatment [id number]#1 .00CD:127 [facility] Endoscopic Procedure Report - Otheron 07-17-2021 [...] Procedure images: Rec1_hd_video_2021_ _[id number].jpg Rec1_hd_video_2021_ _[id number].jpg Rec1_hd_video_2021_ _[id number].jpg . Post-Procedure Complications: none. Estimated blood loss: [...] Return to activities:: After 24 hours. Normal [facility] Comment on above: Result Comment: Elec tronically Signed By: Rebecca SARAVIA MD\.br\Date and Time Signed: 07/17/21 12:44 EST Other Comment: Claudia veras Attachment - attachment storage system not supported [id number] Can be viewed in source system Missing Attachment - attachment storage system not supported [id number] Can be viewed in source system Missing Attachment - attachment storage system not supported [id number] Can be viewed in source system Inpatient Patient Summaryon 07-17-2021 Inpatient Patient Summary [address] [address] [facility] Clinical Discharge Instructions PERSON INFORMATION Name: JOSE TODD PHYSICIANS Admitting Physician: Rebecca SARAVIA MD Attending Physician: Rebecca SARAVIA MD PCP: Clarke WILSON, Deon Discharge Diagnosis: Colon polyp Comment: PATIENT EDUCATION INFORMATION Instructions: Colonoscopy, Care After Surgery Manjit (CUSTOM); Colon Polyps Medication Leaflets: Follow up: With: Address: When: Rebecca SARAVIA [address] [place] [address] [place] [address] [phone] [employer] (0) Comments: office will call fof follow up MEDICATION LIST Medications to Continue with No Changes Other Medications aspirin 81 Milligram By Mouth every day. Ordered by another provider.. losartan (Cozaar 100 mg Tab) 1 Tablets By Mouth every day. omeprazole (omeprazole 40 mg Cap-EC) 1 Capsules By Mouth every day. Comment: Normal [facility] Main OR PACU I Recordon Main OR PACU I Record PACU Phase I Docum ent Type FT Summary Primary Physician: Rebecca SARAVIA MD Finalized Date/Time: 07/17/21 14:31:57 Pt. Name: JOSE TODD /Sex: 1955 Male Med Rec #: [id number] Physician: Rebecca SARAVIA MD Financial #: [id number] Pt. Type: O Room/Bed: / Admit/Disch: 07/17/21 [...] 07/17/21 14:31 Bharti Kamara RN 07/17/21 14:31 [facility] Main OR Preoperative Recordo n 07-17-2021 Main OR Preoperative Record Holding Area Document Type FT Summary Primary Physician: Rebecca SARAVIA MD Finalized Date/Time: 07/17/21 11:54:32 Pt. Name: JOSE TODD Markos Geiger/Sex: 1955 Male Med Rec #: [id number] Physician: Rebecca SARAVIA MD Financial #: [id number] Pt. Type: O Room/Bed: / Admit/Disch: 07/17/21 [...] By: Paola Falk RN 07/17/21 11:54 Normal [facility] Monitor Recordon 07-17-2021 Monitor Record [id number]# 1.00CD:127 Normal [facility] Monitor Record [id number]# 1.00CD:127 Normal [facility] Outpatient Surgery Discharge Instructionon 07-17-2021 Outpatient Surgery Discharge Instruction [address] [address] Patient Discharge Instructions PERSON INFORMATION Name: JOSE [...] NEAREST EMERGENCY ROOM OR CALL 911 I, JOSE TODD, have received the attached patient education materials/instruction s and have verbalized understanding: May we do a follow up call? Yes No I was present when discharge instructions were given Patient Signature Date Clinican/Nurse Signature Date Follow up: With: Address: When: Rebecca SARAVIA [address] [place] [address] [place] [address] [phone] Business (1) Comments: office will call fof follow up Pharmacy Information: [facility] You may receive a survey from [employer] asking you to rate your care experience. Your feedback is important and will help us understand what we do well and how we can improve the quality of care we provide to you, your loved ones and our community. It?s an honor to serve you. Thank you for choosing [facility] HERE ARE THE MEDICATION CHANGES THAT OCCURRED [...] ? Are (more content not included)... Normal [facility] Patient Education - Texton 0 07-17-2021 [...] that are (more content not included)... Normal [facility] Progress Note-Physicianon Progress Note-Physician Patient: JOSE TODD Age: 66 years Sex: Male : 1955 Associated Diagnoses: None Author: Jose Romano Jr., DO Postoperative Information Post Operative Note: Post Anesthesia Care Unit. Anesthetic utilized: General. Health Status Allergies: Allergic Reactions (Selected) Severity Not Documented Simvastatin- Muscle pain. Problem list: All Problems Hyperplastic polyp of sigmoid colon / SNOMED CT 531569575 / Confirmed History of DVT of lower extremity / SNOMED CT 0832681704 / Confirmed Tubulovillous adenoma of colon / SNOMED CT 2296561094 / Confirmed HTN (hypertension) / SNOMED CT 0631418734 / Confirmed Gastric ulcer / SNOMED CT 3919964172 / Confirmed GERD (gastroesophageal reflux disease) / SNOMED CT 597262818 / Confirmed Sleep apnea / SNOMED CT 206586927 / Confirmed Hypercholesteremia / SNOMED CT 56497549 / Confirmed Fecal occult blood test positive / SNOMED CT 01466591 / Confirmed Personal history of colonic polyps / SNOMED CT 2474806814 / Confirmed BMI 35.0-35.9,adult / SNOMED CT 399069170 / Confirmed History of colon polyps / SNOMED CT 2417540706 / Confirmed Family history of colon cancer / SNOMED CT 416025693 / Confirmed Resolved: HTN (hypertension) / SNOMED CT 5600LI4Z-4028-5328-51 [id number] Physical Examination Vital Signs 07/17/2021 12:55 EST [...] noted. Plan Transfer/ Discharge: Condition stable. Normal [facility] Comment on above: Result Comment: Elec [...] 0, PER PHYSICIAN INSTRUCTIONS. PRIOR TO COLONOSCOPY., [employer] #24, 170.1, cm, 06/15/21 8:58:00 EST, [...] Histories Past Medical History: Resolved HTN (hypertension) ([id number] [id number]): Resolved. Family History: Diverticulitis of colon Father Metastatic cancer Mother Father Procedure history: Colonoscopy ([id number]) on 05/16/2016 at 61 Years. Cholecystectomy ([id number]) on 05/16/2011 at 56 Years. Comments: 12/04/2019 10:14 Nhi Hernandez LPN, Dr. Cataract ([id number]) on 05/16/2009 at 54 Years. Comments: 12/04/2019 10:15 Nhi Hernandez LPN left eye Appendectomy ([id number]) on 05/16/1964 at 9 Years. Social History Social & Psychosocial Habits Alcohol 12/04/2019 Risk Assessment: Denies Alcohol Use 06/15/2021 Use: Current Type: Liquor Frequency: 1-2 times per month Substance Abuse 12/04/2019 Risk Assessment: Denies Substance Abuse Tobacco 06/15/2021 Tobacco Use: Never (less than 100 in l . Physical Examination Respiratory: Lungs are clear to auscultation. Cardiovascular: Regular rhythm. Plan [place] [employer] (ASA) physical status classification: Class III. Anesthetic Preoperative Plan Anesthesia: General. . Anesthetic plan, risks, benefits, and alternatives discussed with the patient and/or family. Patient verbalized understanding. [facility] Comment on above: Result Comment: Elec tronically Signed By: Jose Romano Jr., DO\.br\Date and Time Signed: 07/17/21 09:35 EST Consent for Procedure/Surger yon 06-16-2021 Consent for Procedure/Surgery [id number]# 1.00CD:127 [facility] Ambulatory Visit Summaryon 0 06-15-2021 Ambulatory Visit Summary DOUGLASJOSE :1955 Visit Date:06/15/2021 Ambulatory Visit Instructions Your Diagnosis History of colon polyps Family history of colon cancer Your Care Team Attending Physician - Qing Cutris CNP Primary Care Physician - Deon Mir [...] Follow Up with MANJIT WILSON, OCTAVIO Fernandez, JES When: Within 2 to 4 weeks Where: [address] [place] [address] Medications What How Much When Instructions New polyethylene glycol 3350 with electrolytes (polyethylene glycol 3350 with electrolytes Oral Pwdr for Katie 4000 mL (NuLytely)) See instructions PER PHYSICIAN INSTRUCTIONS. PRIOR TO COLONOSCOPY. Pickup at [facility]/pharmacy #[id number] Unchanged aspirin 81 Milligram By Mouth Every [...] if questions or concerns Pharmacy Information [facility]/pharmacy #[id number]: [address], [place] [phone] Allergies simvastatin (Muscle pain) Problems Ongoing - [...] care provider. (more content not included)... Normal [facility] Ambulatory Visit Summary JOSE TODD :1955 Visit [...] Follow Up with MANJIT WILSON, OCTAVIO Fernandez, JES When: Within 2 to 4 weeks Where: [address] [place] [address] Medications What How Much When Instructions New polyethylene glycol 3350 with electrolytes (polyethylene glycol 3350 with electrolytes Oral Pwdr for Katie 4000 mL (NuLytely)) See instructions PER PHYSICIAN INSTRUCTIONS. PRIOR TO COLONOSCOPY. Pickup at [facility]/pharmacy #[id number] Unchanged aspirin 81 Milligram By Mouth Every [...] if questions or concerns Pharmacy Information [facility]/pharmacy #[id number]: [address], [place] [phone] Allergies simvastatin (Muscle pain) Problems Ongoing - [...] care provider. (more content not included)... Normal [facility] Gastroenterology Office/Clin ic Noteon 06-15-2021 Gastroenterology [...] (Hospital Procedure) [place] [address] 2. Family history of colon cancer (Z80.0: Family history of malignant neoplasm of digestive organs) Same as above plan of care. See # 1. Ordered: Colonoscopy (Hospital Procedure) Office Visit Level 3 [place] [address] Orders: polyethylene glycol 3350 with electrolytes, See Instructions, 1 EA, Refill(s) 0, PER PHYSICIAN INSTRUCTIONS. PRIOR TO COLONOSCOPY., [id number], 170.1, cm, 06/15/21 8:58:00 EST, Height/Length Dosing, 106.8, kg, 06/15/21 8:58:00 EST, Weight Dosing Follow-up With When Contact Information MANJIT WILSON, OCTAVIO Fernandez, MED Within 2 to 4 weeks [address] [place] [address] Additional Instructions: Patient Education Colon [...] Father. Metastatic cancer: Mother and Father. Normal [facility] Comment on above: Result Comment: Elec [...] 01/26/2005 Document Revised: 08/17/2018 Document Reviewed: 08/17/2018 [employer] Patient Education ? 2020 [employer] [facility] Encounters Encounter Date Encounter Type Care Provider Facility Start: 05-25-2024 ambulatory [facility] Start: 03-07-2024 ambulatory [facility] Start: 02-28-2024 ambulatory [facility] Start: 01-06-2024 End: 01-06-2024 ambulatory [facility] Start: 11-07-2023 ambulatory BERTA LOMAX [facility] Start: 06-17-2023 End: 06-17-2023 ambulatory [facility] Start: 06-28-2022 End: 06-29-[address] DEON [...] Comment on above: Performed By: #### P [facility] ####[place] [address] [place], [place] [address] Tiny Miranda Payers Date Payer Category Payer Medicare [id number] 1961 Unknown [id number] 1955 Unknown [id number] 2.16.84 [id number] 1955 Unknown [id number] 2.16.84 [id number] 1953 Unknown [id number] 2.16.84 [id number] 1953 Unknown [id number] 2.16.84 [id number] 1953 Unknown [id number] 2.16.84 [id number] Progress note 01-06-2024 Note Date & Type Note Facility 01-06-2024 Note [facility] Subjective Jose Todd is a 68 y.o. year old male patient being seen for a six month follow up. Pt has hypertension, hyperlipidemia, afib. Amiodarone was stopped at last visit. Patient Active Problem List Diagnosis Cardiovascular stress [...] heart failure. Today he is seen in follow-up. He reports that he has been doing well. He has no anginal symptoms. He has no leg swelling. He has some shortness of breath on exertion. NYHA class II. Review of Systems Constitutional: Positive for weight loss (15# since Mar 2023). Cardiovascular: Positive for dyspnea on exertion. Negative for palpitations ( periodically ). Musculoskeletal: Positive for back pain and joint pain. Gastrointestinal: Positive for heartburn. Neurological: Positive for light-headedness. All other systems reviewed and are negative. Objective Visit Vitals BP 114/75 (BP Location: Left arm, Patient Position: Sitting) Pulse 68 Ht 1.702 m (5' 7 ) Wt 110 kg (242 lb) SpO2 93% BMI 37.90 kg/m??? Smoking Status Never BSA 2.28 m??? Physical Exam Constitutional: Appearance: He is [...] warm and dry. Neurological: General: No focal (more content not included)... [facility] Progress note 06-17-2023 Note Date & Type Note Facility 06-17-2023 Note [facility] Subjective Jose Todd is a 68 [...] tenderness. Musculoskeletal: Ge (more content not included)... [facility] History and physical note 07-20-2021 Note Date & Type Note Facility 07-20-2021 Note [id number] [facility] Summary Purpose Family History No Family History Records FoundNo Family History Records FoundNo Family History Records Found Advance Directives No Advanced Directives Records FoundNo Advanced Directives Records FoundNo Advanced Directives Records Found Additional Source Comments (unrecognized sect ion and content) No Status Records FoundNo Status Records FoundNo Status Records Found INFORMATION SOURCE (unrecogn ized section and content) DATE CREATED AUTHOR 09/09/2021 Jose Delarosa [facility] DATE CREATED AUTHOR AUTHOR'S ORGANIZ ATION 09/24/2022 Eliot Delgado [facility] DATE CREATED AUTHOR AUTHOR'S ORGANIZ ATION 05/30/2024 [facility] FOR RECORDS PERTAINING TO PATIENTS WHO ARE [...] BE BASED ON THE PRIMARY CLINICAL RECORDS. [employer] provides no warranty or guarantee of the accuracy or completeness of information in this document.
--- NOTE | 2024-07-24 12:10 | XR_ITS ---
The [address] [address] Patient Name: JOSE COLE MRN: [id number] date: 1955 Sex: M Assigned Patient Location: [facility] Current Patient Location: [facility] Accession/Order Number: [id number] Exam Date: 07/24/2024 12:48 Report Date: 07/24/2024 12:51 At the request of: DEON SPRINGER MD Procedure: XR hip RT 2V w/ pelvis RIGHT HIP WITH AP PELVIS - 3 views COMPARISON: None available CLINICAL DATA: Right hip pain for the past few years. No specific injury. AP view of the pelvis as well as AP and frog-lateral views of the right hip were obtained. No fracture or dislocation is identified. The hip joint spaces are maintained. There is minimal marginal spurring at the periphery of the right femoral head and superior acetabulum. The SI joints are intact. Small enthesophytes are seen at the iliac crests and greater trochanters. Mild sclerosis is visualized at the pubic symphysis. There is minor degenerative change involving the lower imaged lumbar spine. No soft tissue abnormalities are present. XR/XR hip RT 2V w/ pelvis IMPRESSION: MINOR DEGENERATIVE CHANGES. NO ACUTE BONY FINDINGS. Impression dictated by: Shaye Pham M.D.07/24/2024 12:51 PM Dictation Location: [place] [address] Electronically authenticated by: [id number] Y Date: 07/24/2024 12:51
== END 2024-07-24 11:55 | disposition home or self-care (01) ==
LOC: RAD 11:58
PROVIDERS: PCP Family Medicine; Visit Provider Family Medicine
DX: M25.551 Pain in right hip (principal)
CPT/HCPCS: 73502

== ENCOUNTER 2024-08-01 09:55 | Outpatient (OUT) | payer MEDICARE, OTHER, SELFPAY ==
[2024-08-01 10:11] LABS: Basophils Absolute Auto 0.1 10^3/uL (0.0-0.1); Basophils Percent Auto 0.9 % (0.2-2.0); Eosinophils Absolute Auto 0.4 10^3/uL (0.0-0.7); Hematocrit 51.2 % (42.0-54.0); Hemoglobin 17.2 g/dL (14.0-18.0); Immature Granulocytes Abs Auto 0.03 10^3/uL (0.00-0.03); Immature Granulocytes Pct Auto 0.4 % (0.0-0.5); Lymphocytes Absolute Auto 1.9 10^3/uL (1.2-3.8); Lymphocytes Percent Auto 26.7 % (20.5-60.0); Mean Corpuscular HGB Conc 33.6 g/dL (29.9-35.2); Mean Corpuscular Hemoglobin 30.9 pg (25.9-34.0); Mean Corpuscular Volume 91.9 fL (80.0-94.0); Mean Platelet Volume 9.9 fL (9.5-13.5); Monocytes Absolute Auto 0.6 10^3/uL (0.3-0.8); Monocytes Percent Auto 8.4 % (1.7-12.0); Neutrophils Absolute Auto 4.1 10^3/uL (1.4-6.5); Neutrophils Percent Auto 58.6 % (43.0-75.0); Platelet Count 171 10^3/uL (150-450); Red Blood Count 5.57 10^6/uL (4.70-6.10); Red Cell Distribution Width 14.7 % (11.0-15.0); White Blood Count 7.1 10^3/uL (4.0-11.0)
--- OUTSIDE RECORDS SUMMARY | 2024-08-01 10:14 | XMS_ITS | CCD ---
Author Organization [facility] Care Team Providers Care Registered Nurse Cardiac Name Role Phone JAVAN ANDERSON Admitting Unavailable [...] Unavailable HOY ., DR CHAVARRIA Consulting Unavailable [place], DR NARCISO Walker Consulting Unavailable HOY ., [...] source) Amino Acids Drug Allergy 6 [facility] Repository (1 source) Hmg-Coa Reductase Inhibitors (Statins); Translations: [JYPTPYI-SED-KGZ REDUCTASE INHIBITORS] Propensity to adverse reactions to drug (disorder) 2 [facility] Repository Problems Active Problems Problem Classification [...] disease (2 sources) Atherosclerotic heart disease of [place] coronary artery without angina pectoris; Translations: [Atherosclerotic heart disease of [place] coronary artery without angina pectoris] Onset: 05-11-2023 [...] Regarding lab result s from 01/07/2024: MD Reian Bowman MA Blood test was ok, follow up in 1 year. LM on . Normal [facility] Office Visiton 01-06-2024 Follow-up visit [id number] Jose Todd 1955 [facility] 01/06/2024 BRISSA ESCOBAR EFRAÍN Delgado [facility] Family History Problem Relation Age of Onset Heart attack Maternal Grandfather Heart attack Paternal Grandfather Family Status - Relation Status Age at Maternal Grandfather Paternal Grandfather Level of Service:58530 [place] OFFICE/OUTPATIENT ESTABLISHED LOW MDM 20 MIN Normal [facility] Office Visiton 06-17-2023 Follow-up visit [id number] Jose Todd 1955 [facility] 06/17/2023 BRISSA ESCOBRA EFRAÍN Delgado [facility] Family History Problem Relation Age of Onset Heart attack Maternal Grandfather Heart attack Paternal Grandfather Family Status - Relation Status Age at Maternal Grandfather Paternal Grandfather Level of Service:79935 [place] OFFICE/OUTPATIENT ESTABLISHED LOW MDM 20 MIN Normal [facility] GLYCOHEMOGLOBIN A1Con 2022 ADA RECOMMENDATION SEE BELOW Normal [facility] Comment on above: Result Comment: ADA RECOMMENDED LIMIT 4.0 - 6.0 ADA THERAPEUTIC TARGET < 7.0 ACTION SUGGESTED > 7.0 Performed By: #### A 1C #### [facility] [address] [address] [address] Tiny Miranda Glucose [Mass/Vol] 123 mg/dL Normal [facility] Comment on above: Performed By: #### A 1C #### [facility] [address] [address] [address] Tiny Miranda HbA1c (Bld) [Mass fraction] 5.9 % Normal 4.5-6.2 [facility] Comment on above: Performed By: #### A 1C #### [facility] [address] [place] [address] Dr. Tiny Miranda LIPID PROFILEon 06-28-2022 CHOL-HDL RATIO NORM SEE BELOW Normal [facility] Comment on above: Result Comment: 3.3 - 4.4 LOW RISK 4.4 - 7.1 AVERAGE RISK 7.1 - 11.0 MODERATE RISK >11.0 HIGH RISK Performed By: #### L IVROQUE, LIPID #### [facility] [address] [place] [address] Dr. Tiny Miranda Cholesterol [Mass/Vol] 132 mg/dL Normal <=200 [facility] Comment on above: Performed By: #### L IVROQUE, LIPID #### [facility] [address] [place] [address] Dr. Tiny Miranda Cholesterol in HDL [Mass/Vol] 39 mg/dL Critically low 40-60 [facility] Comment on above: Performed By: #### L IVROQUE, LIPID #### [facility] [address] [address] [address] Tiny Miranda Cholesterol in LDL [Mass/Vol] 70.2 mg/dL Normal [facility] Comment on above: Performed By: #### L IVER, LIPID #### [facility] [address] [place] [address] Dr. Tiny Miranda Cholesterol.total/Cho lesterol in HDL [Mass ratio] 3.4 {ratio} Normal [facility] Comment on above: Performed By: #### L IVER, LIPID #### [facility] [address] [place] [address] Dr. Tiny Miranda HDL NORMAL > or = 60 mg/dl - LO W CARDIOVASCULAR RISK <40 mg/dl - HIGH CARDIOVASCULAR RISK Normal [facility] Comment on above: Performed By: #### L IVER, LIPID #### [facility] [address] [address] [address] Tiny Miranda LDL CALC NORMAL SEE BELOW Normal [facility] Comment on above: Result Comment: <100 mg/dl OPTIMAL 100 - 129 mg/dl NEAR OR ABOVE OPTIMAL 130 - 159 mg/dl BORDERLINE HIGH 160 - 189 mg/dl HIGH >190 mg/dl VERY HIGH Performed By: #### L IVER, LIPID #### [facility] [address] [address] [address] Tiny Miranda Triglyceride [Mass/Vol] 114 mg/dL Normal <=150 [facility] Comment on above: Performed By: #### L IVER, LIPID #### [facility] [address] [address] [address] Tiny Miranda VLDL CALC 22.8 mg/dL Normal [facility] Comment on above: Performed By: #### L IVER, LIPID #### [facility] [address] [address] [address] Tiny Miranda LIVER PROFILEon 06-28-2022 Albumin [Mass/Vol] 3.6 g/dL Normal 3.4-5.0 [facility] Comment on above: Performed By: #### L IVER, LIPID #### [facility] [address] [address] [address] Tiny Miranda Albumin/Globulin [Mass ratio] 1.0 {ratio} Normal [facility] Comment on above: Performed By: #### L IVER, LIPID #### [facility] [address] [address] [address] Tiny Miranda ALP [Catalytic activity/Vol] 48 U/L Normal 46-116 [facility] Comment on above: Performed By: #### L IVER, LIPID #### [facility] [address] [address] [address] Tiny Miranda ALT [Catalytic activity/Vol] 39 U/L Normal 16-63 [facility] Comment on above: Performed By: #### L IVER, LIPID #### [facility] [address] [address] [address] Tiny Mrianda AST [Catalytic activity/Vol] 26 U/L Normal 15-37 [facility] Comment on above: Performed By: #### L IVER, LIPID #### [facility] [address] [address] [address] Tiny Miranda BILI, CONJUGATED 0.1 mg/dL Normal 0.0-0.2 [facility] Comment on above: Performed By: #### L IVER, LIPID #### [facility] [address] [address] [address] Tiny Miranda Bilirubin [Mass/Vol] 0.6 mg/dL Normal 0.2-1.0 [facility] Comment on above: Performed By: #### L IVER, LIPID #### [facility] [address] [address] [address] Tiny Miranda Globulin (S) [Mass/Vol] 3.6 g/dL Normal [facility] Comment on above: Performed By: #### L IVER, LIPID #### [facility] [address] [address] [address] Tiny Miranda Protein [Mass/Vol] 7.2 g/dL Normal 6.4-8.2 [facility] Comment on above: Performed By: #### L IVER, LIPID #### [facility] [address] [address] [address] Tiny Miranda PROF CHEM 8 (BAS METB)on Anion gap [Moles/Vol] 12.4 mmol/L Normal [facility] Comment on above: Performed By: #### B MP ####[facility] [address] [address]Dr. Tiny Miranda Calcium [Mass/Vol] 9.2 mg/dL Normal 8.5-10.1 [facility] Comment on above: Performed By: #### B MP ####[facility] [address] [address]Dr. Tiny Miranda Chloride [Moles/Vol] 104 mmol/L Normal 98-107 [facility] Comment on above: Performed By: #### B MP ####[facility] [address] [address]Dr. Josielisa Ruben CO2 [Moles/Vol] 30.5 mmol/L Normal 21.0-32.0 [facility] Comment on above: Performed By: #### B MP ####[facility] [address] [address]Dr. Tiny Miranda Creatinine [Mass/Vol] 1.12 mg/dL Normal 0.70-1.30 [facility] Comment on above: Performed By: #### B MP ####[facility] [address] [address]Dr. Tiny Miranda EGFR-AF BOTSWANAN >60 Normal >=60 [facility] Comment on above: Performed By: #### B MP ####[facility] [address] [address]Dr. Tiny Miranda EGFR-NON AF BOTSWANAN >60 Normal >=60 [facility] Comment on above: Performed By: #### B MP ####[facility] [address] [place], [place] [address]Dr. Tiny Miranda Glucose [Mass/Vol] 121 mg/dL Critically high 74-106 [facility] Comment on above: Performed By: #### B MP ####[facility] [address] [address]Dr. Tiny Miranda Potassium [Moles/Vol] 4.9 mmol/L Normal 3.5-5.1 [facility] Comment on above: Performed By: #### B MP ####[facility] [address] [address]Dr. Tiny Miranda Sodium [Moles/Vol] 142 mmol/L Normal 136-145 [facility] Comment on above: Performed By: #### B MP ####[facility] [address] [address]Dr. Tiny Miranda Urea nitrogen [Mass/Vol] 14.0 mg/dL Normal 7.0-18.0 [facility] Comment on above: Performed By: #### B MP ####[facility] [address] [place], [place] [address]UbColeman Miranda Urea nitrogen/Creatinine [Mass ratio] 12.5 mg/mg Normal [facility] Comment on above: Performed By: #### B MP ####[facility] [address] [place], [place] [address]KdColeman Miranda US MARY DOP LEG LTon 05-19-19 [...] by: KUSH GARSIA Date: 2022-05-19 16:48 Normal [facility] NM STRESS/REST MULTIon 04-14 NM STRESS/REST MULTI Patient: JOSE TODD Exam Date: 04/14/2022 : 1955 Gender:M Ordering : DR DEON MIR . Admission #: [id number] Family : Order #: [id number] CLICK HERE TO VIEW EXAM RADIOLOGY REPORT [...] MD on 04/15/2022 at 07:51 Normal [facility] HEPATITIS PANEL, ACUTEon HBsAg Screen Negative Normal Negative [facility] Comment on above: Performed By: #### H EPACUT ####[facility] [address] [address]Dr. Tiny Miranda HCV AB <0.1 Normal 0.0-0.9 [facility] Comment on above: Performed By: #### H EPACUT ####[facility] [address] [address]Dr. Tiny Miranda Hep A Ab, IgM Negative Normal Negative [facility] Comment on above: Performed By: #### H EPACUT ####[facility] [address] [address]Dr. Tiny Miranda Hep B Core Ab, IgM Negative Normal Negative [facility] Comment on above: Performed By: #### H EPACUT ####[facility] [address] [id number] Tiny Miranda Interpretation: Comment Normal [facility] Comment on above: Result Comment: Nega tive Not infected with HCV, unless recent infection is suspected or other evidence exists to indicate HCV infection. Performed By: #### H EPACUT ####[facility] [address] [address]Dr. Tiny Miranda INSULINon 04-06-2022 Insulin 51.4 uIU/mL Critically high 2.6-24.9 [facility] Comment on above: Performed By: #### I NSULIN ####[facility] [address] [place], [place] [address]KuDr. Tiny Miranda BNPon 04-05-2022 Natriuretic peptide B (Bld) [Mass/Vol] 20.0 pg/mL Normal <=900.0 [facility] Comment on above: Performed By: #### C MP, BNP, LIPID #### [facility] [address] [address] [address] Tiny Miranda CBC AUTO DIFFon 04-05-2022 BASO # 0.1 103/ul Normal 0.0-0.1 [facility] Comment on above: Performed By: #### C BC #### [facility] [address] [address] [address] Tiny Miranda Basophils/100 WBC (Bld) 1.8 % Normal 0.2-2.0 [facility] Comment on above: Performed By: #### C BC #### [facility] [address] [place] [address] Dr. Tiny Miranda EO # 0.2 103/ul Normal 0.0-0.7 [facility] Comment on above: Performed By: #### C BC #### [facility] [address] [place] [address] Dr. Tiny Miranda Eosinophils/100 WBC (Bld) 3.9 % Normal 0.9-7.0 [facility] Comment on above: Performed By: #### C BC #### [facility] [address] [place] [address] Dr. Tiny Miranda Erythrocyte distribution width (RBC) [Ratio] 12.9 % Normal 11.0-15.0 [facility] Comment on above: Performed By: #### C BC #### [facility] [address] [place] [address] Dr. Tiny Miranda Hematocrit (Bld) [Volume fraction] 47.8 % Normal 42.0-54.0 [facility] Comment on above: Performed By: #### C BC #### [facility] [address] [place] [address] Dr. Tiny Miranda Hemoglobin (Bld) [Mass/Vol] 16.5 g/dL Normal 14.0-18.0 [facility] Comment on above: Performed By: #### C BC #### [facility] [address] [place] [address] Dr. Tiny Miranda IG # 0.03 10e3/ul Normal 0.00-0.03 [facility] Comment on above: Performed By: #### C BC #### [facility] [address] [place] [address] Dr. Tiny Miranda IG % 0.5 % Normal 0.0-0.5 [facility] Comment on above: Performed By: #### C BC #### [facility] [address] [place] [address] Dr. Tiny Miranda LYMPH # 1.8 103/ul Normal 1.2-3.8 [facility] Comment on above: Performed By: #### C BC #### [facility] [address] [place] [address] Dr. Tiny Miranda Lymphocytes/100 WBC (Bld) 31.2 % Normal 20.5-60.0 [facility] Comment on above: Performed By: #### C BC #### [facility] [address] [place] [address] Dr. Tiny Miranda MANUAL DIFF REQ NO Normal [facility] Comment on above: Performed By: #### C BC #### [facility] [address] [place] [address] Dr. Tiny Miranda MCH (RBC) [Entitic mass] 32.4 pg Normal 25.9-34.0 [facility] Comment on above: Performed By: #### C BC #### [facility] [address] [place] [address] Dr. Tiny Miranda MCHC (RBC) [Mass/Vol] 34.5 g/dL Normal 29.9-35.2 [facility] Comment on above: Performed By: #### C BC #### [facility] [address] [place] [address] Dr. Tiny Miranda MCV (RBC) [Entitic vol] 93.7 fL Normal 80.0-94.0 [facility] Comment on above: Performed By: #### C BC #### [facility] [address] [place] [address] Dr. Tiny Miranda MONO # 0.4 103/ul Normal 0.3-0.8 [facility] Comment on above: Performed By: #### C BC #### [facility] [address] [place] [address] Dr. Tiny Miranda Monocytes/100 WBC (Bld) 6.9 % Normal 1.7-12.0 [facility] Comment on above: Performed By: #### C BC #### [facility] [address] [place] [address] Dr. Tiny Miranda NEUT # 3.2 103/ul Normal 1.4-6.5 [facility] Comment on above: Performed By: #### C BC #### [facility] [address] [place] [address] Dr. Tiny Miranda Neutrophils/100 WBC (Bld) 55.7 % Normal 43.0-75.0 [facility] Comment on above: Performed By: #### C BC #### [facility] [address] [place] [address] Dr. Tiny Miranda Platelet mean volume (Bld) [Entitic vol] 9.0 fL Critically low 9.5-13.5 [facility] Comment on above: Performed By: #### C BC #### [facility] [address] [place] [address] Dr. Tiny Miranda PLT 219 103/ul Normal 150-450 [facility] Comment on above: Performed By: #### C BC #### [facility] [address] [place] [address] Dr. Tiny Miranda RBC 5.10 106/ul Normal 4.70-6.10 [facility] Comment on above: Performed By: #### C BC #### [facility] [address] [place] [address] Dr. Tiny Miranda WBC 5.7 103/ul Normal 4.0-11.0 [facility] Comment on above: Performed By: #### C BC #### [facility] [address] [address] [address] Tiny Miranda GLYCOHEMOGLOBIN A1Con 2021 ADA RECOMMENDATION SEE BELOW Normal [facility] Comment on above: Result Comment: ADA RECOMMENDED LIMIT 4.0 - 6.0 ADA THERAPEUTIC TARGET < 7.0 ACTION SUGGESTED > 7.0 Performed By: #### A 1C #### [facility] [address] [place] [address] Dr. Tiny Miranda Glucose [Mass/Vol] 140 mg/dL Normal [facility] Comment on above: Performed By: #### A 1C #### [facility] [address] [place] [address] Dr. Tiny Miranda HbA1c (Bld) [Mass fraction] 6.5 % Critically high 4.5-6.2 [facility] Comment on above: Performed By: #### A 1C #### [facility] [address] [place] [address] Dr. Tiny Miranda LIPID PROFILEon 04-05-2022 CHOL-HDL RATIO NORM SEE BELOW Normal [facility] Comment on above: Result Comment: 3.3 - 4.4 LOW RISK 4.4 - 7.1 AVERAGE RISK 7.1 - 11.0 MODERATE RISK >11.0 HIGH RISK Performed By: #### C MP, BNP, LIPID #### [facility] [address] [place] [address] Dr. Tiny Miranda Cholesterol [Mass/Vol] 241 mg/dL Critically high <=200 [facility] Comment on above: Performed By: #### C MP, BNP, LIPID #### [facility] [address] [place] [address] Dr. Tiny Miranda Cholesterol in HDL [Mass/Vol] 41 mg/dL Normal 40-60 [facility] Comment on above: Performed By: #### C MP, BNP, LIPID #### [facility] [address] [place] [address] Dr. Tiny Miranda Cholesterol in LDL [Mass/Vol] 167.6 mg/dL Normal [facility] Comment on above: Performed By: #### C MP, BNP, LIPID #### [facility] [address] [place] [address] Dr. Tiny Miranda Cholesterol.total/Cho lesterol in HDL [Mass ratio] 5.9 {ratio} Normal [facility] Comment on above: Performed By: #### C MP, BNP, LIPID #### [facility] [address] [place] [address] Dr. iTny Miranda HDL NORMAL > or = 60 mg/dl - LO W CARDIOVASCULAR RISK <40 mg/dl - HIGH CARDIOVASCULAR RISK Normal [facility] Comment on above: Performed By: #### C MP, BNP, LIPID #### [facility] [address] [place] [address] Dr. Tiny Miranda LDL CALC NORMAL SEE BELOW Normal [facility] Comment on above: Result Comment: <100 mg/dl OPTIMAL 100 - 129 mg/dl NEAR OR ABOVE OPTIMAL 130 - 159 mg/dl BORDERLINE HIGH 160 - 189 mg/dl HIGH >190 mg/dl VERY HIGH Performed By: #### C MP, BNP, LIPID #### [facility] [address] [place] [address] Dr. Tiny Miranda Triglyceride [Mass/Vol] 162 mg/dL Critically high <=150 [facility] Comment on above: Performed By: #### C MP, BNP, LIPID #### [facility] [address] [place] [address] Dr. Tiny Miranda VLDL CALC 32.4 mg/dL Normal [facility] Comment on above: Performed By: #### C MP, BNP, LIPID #### [facility] [address] [place] [address] Dr. Tiny Miranda PROF 14(COMP METB)on 022 Albumin [Mass/Vol] 4.0 g/dL Normal 3.4-5.0 [facility] Comment on above: Performed By: #### C MP, BNP, LIPID #### [facility] [address] [place] [address] Dr. Tiny Miranda Albumin/Globulin [Mass ratio] 1.0 {ratio} Normal [facility] Comment on above: Performed By: #### C MP, BNP, LIPID #### [facility] [address] [place] [address] Dr. Tiny Miranda ALP [Catalytic activity/Vol] 56 U/L Normal 46-116 [facility] Comment on above: Performed By: #### C MP, BNP, LIPID #### [facility] [address] [place] [address] Dr. Tiny Miranda ALT [Catalytic activity/Vol] 154 U/L Critically high 16-63 [facility] Comment on above: Performed By: #### C MP, BNP, LIPID #### [facility] [address] [place] [address] Dr. Tiny Miranda Anion gap [Moles/Vol] 10.9 mmol/L Normal [facility] Comment on above: Performed By: #### C MP, BNP, LIPID #### [facility] [address] [place] [address] Dr. Tiny Miranda AST [Catalytic activity/Vol] 86 U/L Critically high 15-37 [facility] Comment on above: Performed By: #### C MP, BNP, LIPID #### [facility] [address] [place] [address] Dr. Tiny Miranda Bilirubin [Mass/Vol] 0.8 mg/dL Normal 0.2-1.0 [facility] Comment on above: Performed By: #### C MP, BNP, LIPID #### [facility] [address] [place] [address] Dr. Tiny Miranda Calcium [Mass/Vol] 9.0 mg/dL Normal 8.5-10.1 [facility] Comment on above: Performed By: #### C MP, BNP, LIPID #### [facility] [address] [place] [address] Dr. Tiny Miranda Chloride [Moles/Vol] 102 mmol/L Normal 98-107 [facility] Comment on above: Performed By: #### C MP, BNP, LIPID #### [facility] [address] [place] [address] Dr. Tiny Miranda CO2 [Moles/Vol] 28.3 mmol/L Normal 21.0-32.0 [facility] Comment on above: Performed By: #### C MP, BNP, LIPID #### [facility] [address] [address] [address] Tiny Miranda Creatinine [Mass/Vol] 1.12 mg/dL Normal 0.70-1.30 [facility] Comment on above: Performed By: #### C MP, BNP, LIPID #### [facility] [address] [address] [address] Tiny Miranda EGFR-AF BOTSWANAN >60 Normal >=60 [facility] Comment on above: Performed By: #### C MP, BNP, LIPID #### [facility] [address] [address] [address] Tiny Miranda EGFR-NON AF BOTSWANAN >60 Normal >=60 [facility] Comment on above: Performed By: #### C MP, BNP, LIPID #### [facility] [address] [address] [address] Tiny Miranda Globulin (S) [Mass/Vol] 4.1 g/dL Normal [facility] Comment on above: Performed By: #### C MP, BNP, LIPID #### [facility] [address] [address] [address] Tiny Miranda Glucose [Mass/Vol] 132 mg/dL Critically high 74-106 [facility] Comment on above: Performed By: #### C MP, BNP, LIPID #### [facility] [address] [address] [address] Tiny Miranda Potassium [Moles/Vol] 4.2 mmol/L Normal 3.5-5.1 [facility] Comment on above: Performed By: #### C MP, BNP, LIPID #### [facility] [address] [address] [address] Tiny Miranda Protein [Mass/Vol] 8.1 g/dL Normal 6.4-8.2 [facility] Comment on above: Performed By: #### C MP, BNP, LIPID #### [facility] [address] [address] [address] Tiny Miranda Sodium [Moles/Vol] 137 mmol/L Normal 136-145 [facility] Comment on above: Performed By: #### C MP, BNP, LIPID #### [facility] [address] [place], [place] [address] Dr. Tiny Miranda Urea nitrogen [Mass/Vol] 15.0 mg/dL Normal 7.0-18.0 [facility] Comment on above: Performed By: #### C MP, BNP, LIPID #### [facility] [address] [place], [place] [address] Dr. Tiny Miranda Urea nitrogen/Creatinine [Mass ratio] 13.4 mg/mg Normal [facility] Comment on above: Performed By: #### C MP, BNP, LIPID #### [facility] [address] [place], [place] [address] Dr. Tiny Miranda Reminderson 09-08-2021 Reminders - From: Aguilar Sanchez To: [facility] - Reminders/Recalls; Sent: 09/07/2021 22:51:37 EDT Show up: 07/14/2026 22:51:00 EST Subject: Ambulatory Reminder Due Date/Time: 08/14/2026 22:51:00 EDT Reminder/Recall colonoscopy reminder 5 years Normal [facility] IntraOperative Documentson 0 07-27-2021 IntraOperative Documents [id number]# 1.00CD:127 Normal [facility] Postoperative Documentson Postoperative Documents [id number]#1 .00CD:127 Normal [facility] Coding Summary.on 07-21-2021 Coding Summary. CD:[id number] G h0bWw+PGhlYWQ+DW5TCRB iD82dhRXjpV4MB2qSYV2Z VGVLAZMHPH3XRF2reGU2O UxnJ7IvauIq MwjhwGDgSY15OJs1KNS6e OafHBmdbS8izUQrB3k9Ox QyHK62dL93HEozQPYwIcO 3LjZpbjsgbWFy J2vwAcBjxEYzGqo+PHRhY mxlIHdpZHRoPScxMDAlJy QmeNumKG1dXa3cTQRnAHM vbGxhcHNlOiBj e7wbTLFwFGskDT7wzMoiK 5SnoIR6LUCgb2j0Jw23aF I+BHQgSHJ0kWyePIcng23 1EqFeg7fgCOO5 iNTdPOvpRYU1U72dw1X0V PGcEBNiASP1tYO1wW9tbR ugepcvB5LmnMRlByJ6JBD 6kNRitM5xxDqm ohhtaR4fYqi+O35GRS0QR WFQEE0VItc2L9EqPtnznW I+ZY89IKEbEN10jIUqkSR lr4llcLv3CxYd JTMrTYI5mBzuNKher3LwM HTeM40inWRqx7I9BJSubR fztOEhRiLfdFG2nM3dKUv iiquva0liiqei Elhsb9grnk56pY17A11oW SzhBVRzDWD0WMKlBPYdyN fqjr6sbW9aGe3+HFcnp9p cp5lefGx3HsCb ACDkulLhbTwhAOA9t1GeX v09L7EdrVuob8BsKew0vz 82tEEvc3X4pMR6MFbtHOO vaN2oPLowBfU9 GTTqKoMysT76oUPmKRegF w4qnRixeNpmSF4jUGYsau hpFPZxgV3tNAVmsWFuqDe oLG9wXNEidcwj d446IzMgZLM6NSOtwYEyD 6StjW0kFeOvNDUlBKTpN8 RntWMgMMgpJ191VAhcSvC 0OGPmaaFrG3Ob PVUcjRxtGcN2m5N4Wu8Dt 4RxdoawUQB6DPdeEBMqTk O6JpIfIaC2H1KdAse2GUB yuDbbZM3bU8Yi LSNwzzikxorufJN6KOJjX AHbnE60iPIpIXuqRn5zl2 H8k250SCUwAONctQ78Cw9 udDogMTBwdCBU pN1swcuad5thzditNuXrH DGlSXv6IBo7RAQwaAywKy BqPXM7EmP0VMT2lRBjiV5 rpKkipqgprK9t Oyc+A43rrP1hISQ3JHP6i rgqCIPafvQjXQ00XP55K5 RyPjwvdGFibGU+PGRpdiB laYzsJB8eOhYt s6feu6RcOTbtA3HqYTGeW IjdPen6NKBqUJF1bVY6zV 2rJUTwFJenm3J3uIC6B3L mbeVsuh8yt3lq ZQKeSBlnG13tuMRnt6S5F XKzmDE1IFXfvOfxBfZkmK 93Oyc+UYCfuJrdv6AzMew xn4yeu4fboHa3 FkZrQLLjpwFxfCyuANU9e 3OxNr66B93yXSmbJPQzZP JdEOJgITCyqHtzwk1nhL0 wIi8+PGNvbCB3 pTV2kW9uFQScMrQ4NJleK 234KnLjqHOnQcxss5qqa7 qsaZp3ZcRhXQLoccKroBy oSGA9x3DgZc31 K99wFQfbMLSwSFXpMAMhH GGltSmiad9bxR0cLs8+PC 3ui0cqik56jV27jDU+PHR bGID4aRnsWRcl VWCyhG2nJQwvKkL0LRRhE xVyjA87dCShIMcfEj7ukP nqfZapLM8iLYXzfstqb49 8CrHit5ucSVTf kHHtLWmaIMJ5K90yu7Y1Y BLlZXYyHDO4dIX7jJ9riV lnbjogbGVmdDsgdmVydGl nDOczCTyrX896 IHRvcDsnPlBhdGllbnQgT kUeXPp2U7WjTbf3ICSmgR zbRT2epOJfKMoxAy8zdCx nqScaZY9hLMXe jyibz550TpQkh5xkHJXkx ZGxANryJHQ3Z13ma4H2OU IsEHSzQVU3eAI5tE6yjBu nbjogbGVmdDsg utUxzLdyOJomHDqaM615H HRvcDsnPkJpcnRoIERhdG D4QM63MS96pYUiq6Q4jJX 2X2XjMLAwflmh zfmchEI2ZEOsGLGwtM91M i0pyAqeVo5zHPCgIWL9NY FauGZcD8FpoC8mNmUlKXG eCXQgF0OfcMKn TPzgW171USwqLaJ6FFVja zLlT2CpDZOgvNvsVwV1s9 C7Mt7VA6M8VI28RU21mIT va0T2pAJ2B6Dv SYHjlqqjuhsofVR3RRRyK BWppF53Ks1eyTwjPk7wWR FlMVR1CYJxfWUeM2TfeK7 yOiAjMDAwMDAw E8TgrOLgPKqkN613JZxsB yH8OOVjjiAjK9AtPRKezZ aoLsN4u5L5Rl8DMCa6EX3 0CT28dOLae7J4 hNY6O4KhAAXbgsbqwknhe YO1QOLxXQTpzH19Ng1rvE wfZz0vMCPpUWN3CPBvvVB lR6OzcK2pAcQo VMYpCTEaC0RlyINyAVyrA 905ZFsqOmQ9ADLixrEqX1 AfSFGklVfnBrK6o3A5Lq3 LHDXpQV29GXP4 cJH0JE99PN03T8JlLkosm GFibGU+PHRhYmxlIHdpZH RoPScxMDAlJyBzdHlsZT0 wRz1pXONuHYBx kWavsTIcLiOri5wiVIGcS ZdnVR9mzLylJ4MlxUE1JB Aqp2k2Hq68Z14lS7AbyTP +TKIakSH9cYJ0 xZ3oIjVuDuI1UBxjD029G lAkoJRkJykop2jcp9kfjH x5HfN3VRBueeJdpThrOJB 1x4JpIy09R45g IHdpZHRoPSIxNSUiIHZhb Pueeb3znZ1pAs3+PGNvbC D8kGX3aM2sYtSyUpQ5IFk oR993RwVzkDBq Unapo9lwr4flaNi6RdUcB JUvnjChtHwxEIZ1j0PpAg 34A7NdoFmnq7WnZiz4cw8 3sNSfl4D6xXD8 H5PgGOAdvklwjZTpfDugF V9kVFTiimnaHMHgzH0xWR PxX7w8OfSfAzZ6OGmpJ8N uupG5CUYjwCZy KDlhQBG6G78cj5F9MHCcZ WFdNFA2hNM0pD2dvFnvhl ogbGVmdDsgdmVydGljYWw eMLdkC094AGQx dHoaIRAaiC2fSTKofFEkz PkrYS8zNEVitvmzFwLXEy XCVmHmKKyMPHmEAL4pRWh vdGQ+PHRkIHN0 hMcgZWlhAEViqT9eLZLgE 2g8ZwYkKsA5CEajI3XgJQ IsfeboYr66lZ1vBjYyQnR 8OVzjH3AbqdM5 QFRrxAQfAHobRXE8M71ht 2F1GFTyMTSlDPD7wKE1kB 1hbGlnbjogbGVmdDsgdmV ydGljYWwtYWxp D211FSCviIwwIsXzGkKuF pL4QPE7N4IzSwp7PUYuaH bwII2ngNEbPKkpMd5zrUb lkKsxJR6bAIIj rxswHIPnhN4tMGWpnOWde AmwKH4rLXEbxdfbh280Ep CiZDT1DIGrhWXnJ9SieI5 yOiAjMDAwMDAw R7AwgRPgFTjtV126NChjP xQ5LPRqqyYgY1LyZUHfcM fcNiD0a1L2Mz33ZIATHXN yczwvdGQ+PHRk KNV4tJbiPZbuSDJmgC1bS IFhH9b0KcKuQqT9ROkmX5 LaNOObcqpnLn67bB3nHcG gXkA0QLkyO7Pj nfD4KBKwwNHdEPpeHIQ9O 16gz0Y8EFCaQLLqTZG5oP Z1jH5uaXfhngrqkYTqiKw gdmVydGljYWwt QHxgT088IXDktNmySe6jf XI7L6ExWsz0PWVlvTegBH 3llFHdUOulTy3irTlusKh zCO0dBAIawjtu APEpyY3gQFFqtRRkeEsoR S7hUZYzzojkc027KoEoBS K8HRIxcURpM0YotN9zRmJ kVWRoJOWpH5Ov sAVaMZpiX141CZauXvA6J YAfreFsD9VmKTJsuJldJn Y8e3A0Hs8RiSBjCXNjVG3 3PR87IO90E7Yc PjwvdGFibGU+PHRhYmxlI HdpZHRoPScxMDAlJyBzdH xjQT5bTa9vQZLwOOAjpAq apKBnYbZde4wk ZVAbZVfuSG5ixClwD0Any OR4XWQff7a6No77O76tF8 JvdXA+YVOcwEP7vWK3kJ1 lIcZhDtR9SFsd T967PjDevLQbZpnat9mot 2waoGz9KmWiBJRxsmXxyO yfYIT6y7BhEu61F30lYGe pZHRoPSIyMCUi YAOphVhsyp8zyR1qKf2+P AScdJS5jXO3eH9vEpLyAf L6JFfwT037XpIpuUHxHba qK82cU7BuaRE+ JMEkSbk4XCCxmTtkEI7xi SWoUHckSl1qNPD9QcYfGj RbPZunA0QgHOHpttmomlw shLN2ETQyLMCa mI39Ox0bcVyxCo7cDXMvW DZ4BZDgjBDbU6NpdY9tCe WwOXPqGYXcW9GkqWVsKOb hH364GTqpSmA9 GNXjxlXmZ8JoYZZnkWtlL eS0r8Q5Tr6BpZlwnYAxUD 4sDyLcPHf3X4HbCfd1ISL qsNppZZ3guKHq FRxeTz1bjGzxqOsoFY4tZ YWxahgoq318UfSwl8aeUQ WgyJRlZNzlCEW7M99yb5C 4OPHrVREnRVR5 eIU7vV1uqEhprukagEHes DsgdmVydGljYWwtYWxpZ2 16IMVflFvfLvSTOxm1G9S iLpg4WSYtjWqy JS9uwPZdTTkhVw1unVjld GwyEL4gOGDzrefub807Ef Num8gcCCDmrCMwLAvpUFO 4S92jx6S1RIFp LZGuZXZ5zLI2pH8tvOnng jogbGVmdDsgdmVydGljYW foRPejX461FXVnrYtxXy5 KMqb1N0RyTfp0 FORjvSifRK6mdZIqGQywH j1bdWmdpCzvCP1pBRGgvo xge493EwRai5xxWWIldXH sOXapTFH2N32a g8D9IORcLRRzQEA0zHK6c I9wxUunvdagtHBdqAgzmd QkzGpbLOnkLDzhE872IUR vcDsnPlBheWVy OjwvdGQ+ZW29fk78K7IcQ gctJxe7NNElMNF4tHB9wM 6hEXUkQBoxr9I5jIN3X7G akePlsd3lx8da YXBz (more content not included)... Normal [facility] Main OR Intraoperative Recor don 07-21-2021 Main OR Intraoperative Record IntraOp Document Type FT Summary Primary Physician: Rebecca SARAVIA MD Finalized Date/Time: 07/21/21 12:04:08 Pt. Name: JOSE TODD /Sex: 1955 Male Med Rec #: [id number] Physician: MANJIT WILSON, Rebecca Financial #: [id number] Pt. Type: O Room/Bed: / Admit/Disch: 07/17/21 [...] Burrows Role Performed Anesthesiologist Surgeon - Primary [employer] - Primary Market Consultant Time In 07/17/21 12:31:00 07/17/21 12:31:00 07/17/21 [...] (more content not included)... Normal [facility] Consenton 07-20-2021 Consent [id number]# 1.00CD:127 [facility] Discharge Instructionson Discharge Instructions [id number]# 1.00CD:127 [facility] IntraOperative Documentson 0 07-20-2021 IntraOperative Documents [id number]# 1.00CD:127 [facility] IntraOperative Documents [id number]# 1.00CD:127 [facility] Consent for Treatmenton Consent for Treatment [id number]#1 .00CD:127 [facility] Endoscopic Procedure Report - Otheron 07-17-2021 Endoscopic [...] activities:: After 24 hours. Normal [facility] Comment on above: Result Comment: Elec tronically Signed By: Rebecca SARAVIA MD\.br\Date and Time Signed: 07/17/21 12:44 EST Other Comment: Claudia veras Attachment - attachment storage system not supported [id number] Can be viewed in source system Missing Attachment - attachment storage system not supported [id number] Can be viewed in source system Missing Attachment - attachment storage system not supported [id number] Can be viewed in source system Inpatient Patient Summaryon 07-17-2021 Inpatient Patient Summary [address] [address] [facility] Clinical Discharge Instructions PERSON INFORMATION Name: JOSE TODD PHYSICIANS Admitting Physician: Rebecca SARAVIA MD Attending Physician: Rebecca SARAVIA MD PCP: Clarke WILSON, Deon Discharge Diagnosis: Colon polyp Comment: PATIENT EDUCATION INFORMATION Instructions: Colonoscopy, Care After Surgery Manjit (CUSTOM); Colon Polyps Medication Leaflets: Follow up: With: Address: When: Rebecca SARAVIA [address] [place] [address] [place] [address] [phone] [employer] (9) Comments: office will call fof follow up MEDICATION LIST Medications to Continue with No Changes Other Medications aspirin 81 Milligram By Mouth every day. Ordered by another provider.. losartan (Cozaar 100 mg Tab) 1 Tablets By Mouth every day. omeprazole (omeprazole 40 mg Cap-EC) 1 Capsules By Mouth every day. Comment: Normal [facility] Main OR PACU I Recordon Main OR PACU I Record PACU Phase I Docum ent Type FT Summary Primary Physician: Rebecca SARAVIA MD Finalized Date/Time: 07/17/21 14:31:57 Pt. Name: JOSE TODD /Sex: 1955 Male Med Rec #: [id number] Physician: Rebecca SARAVIA MD Financial #: [id number] Pt. Type: O Room/Bed: / Admit/Disch: 07/17/21 [...] 07/17/21 14:31 Bharti Kamara RN 07/17/21 14:31 [facility] Main OR Preoperative Recordo n 07-17-2021 Main OR Preoperative Record Holding Area Document Type FT Summary Primary Physician: Rebecca SARAVIA MD Finalized Date/Time: 07/17/21 11:54:32 Pt. Name: JOSE TODD Markos Geiger/Sex: 1955 Male Med Rec #: [id number] Physician: Rebecca SARAVIA MD Financial #: [id number] Pt. Type: O Room/Bed: / Admit/Disch: 07/17/21 [...] Falk RN 07/17/21 11:54 [facility] Monitor Recordon 07-17-2021 Monitor Record [id number]# 1.00CD:127 [facility] Monitor Record [id number]# 1.00CD:127 [facility] Outpatient Surgery Discharge Instructionon 07-17-2021 Outpatient Surgery Discharge Instruction [address] [address] Patient Discharge Instructions PERSON INFORMATION Name: JOSE [...] Follow up: With: Address: When: Rebecca SARAVIA [address] [place] [address] [place] [address] [phone] Business (1) Comments: office will call fof follow up Pharmacy Information: [facility] You may receive a survey from [employer] asking you to rate your care experience. Your feedback is important and will help us understand what we do well and how we can improve the quality of care we provide to you, your loved ones and our community. It?s an honor to serve you. Thank you for choosing [facility] HERE ARE THE MEDICATION CHANGES THAT OCCURRED [...] (more content not included)... Normal [facility] Patient Education - [employer] 0 [...] (more content not included)... Normal [facility] Progress Note-Physicianon Progress Note-Physician Patient: JOSE TODD Age: 66 years Sex: Male : 1955 Associated Diagnoses: None Author: Jose Romano Jr., DO Postoperative Information Post Operative Note: Post Anesthesia Care Unit. Anesthetic utilized: General. Health Status Allergies: Allergic Reactions (Selected) Severity Not Documented Simvastatin- Muscle pain. Problem list: All Problems Hyperplastic polyp of sigmoid colon / SNOMED CT 207564656 / Confirmed History of DVT of lower extremity / SNOMED CT 4826154270 / Confirmed Tubulovillous adenoma of colon / SNOMED CT 0476928942 / Confirmed HTN (hypertension) / SNOMED CT 2758921962 / Confirmed Gastric ulcer / SNOMED CT 6873753420 / Confirmed GERD (gastroesophageal reflux disease) / SNOMED CT 030014617 / Confirmed Sleep apnea / SNOMED CT 581698103 / Confirmed Hypercholesteremia / SNOMED CT 68509572 / Confirmed Fecal occult blood test positive / SNOMED CT 03958101 / Confirmed Personal history of colonic polyps / SNOMED CT 0834979985 / Confirmed BMI 35.0-35.9,adult / SNOMED CT 264210750 / Confirmed History of colon polyps / SNOMED CT 5932535337 / Confirmed Family history of colon cancer / SNOMED CT 701034982 / Confirmed Resolved: HTN (hypertension) / SNOMED CT 0873TV0N-3468-5036-70 [id number] Physical Examination Vital Signs 07/17/2021 12:55 EST [...] Transfer/ Discharge: Condition stable. Normal [facility] Comment on above: Result Comment: [...] 0, PER PHYSICIAN INSTRUCTIONS. PRIOR TO COLONOSCOPY., [employer] #24, 170.1, cm, 06/15/21 8:58:00 EST, [...] Histories Past Medical History: Resolved HTN (hypertension) ([id number]-[id number] [id number]): Resolved. Family History: Diverticulitis of colon Father Metastatic cancer Mother Father Procedure history: Colonoscopy ([id number]) on 05/16/2016 at 61 Years. Cholecystectomy ([id number]) on 05/16/2011 at 56 Years. Comments: 12/04/2019 10:14 Nhi Hernandez LPN, Dr. Cataract ([id number]) on 05/16/2009 at 54 Years. Comments: 12/04/2019 10:15 Nhi Hernandez LPN left eye Appendectomy ([id number]) on 05/16/1964 at 9 Years. Social History Social & Psychosocial Habits Alcohol 12/04/2019 Risk Assessment: Denies Alcohol Use 06/15/2021 Use: Current Type: Liquor Frequency: 1-2 times per month Substance Abuse 12/04/2019 Risk Assessment: Denies Substance Abuse Tobacco 06/15/2021 Tobacco Use: Never (less than 100 in l . Physical Examination Respiratory: Lungs are clear to auscultation. Cardiovascular: Regular rhythm. Plan [place] [employer]esthesi[employer] (ASA) physical status classification: Class III. Anesthetic Preoperative Plan Anesthesia: General. . Anesthetic plan, risks, benefits, and alternatives discussed with the patient and/or family. Patient verbalized understanding. [facility] Comment on above: Result Comment: Elec tronically Signed By: Jose Romano Jr., DO\.br\Date and Time Signed: 07/17/21 09:35 EST Consent for Procedure/Surger yon 06-16-2021 Consent for Procedure/Surgery [id number]# 1.00CD:127 [facility] Ambulatory Visit Summaryon 0 06-15-2021 [...] Within 2 to 4 weeks Where: [address] [place] [address] Medications What How Much When Instructions New polyethylene glycol 3350 with electrolytes (polyethylene glycol 3350 with electrolytes Oral Pwdr for Katie 4000 mL (NuLytely)) See instructions PER PHYSICIAN INSTRUCTIONS. PRIOR TO COLONOSCOPY. Pickup at [facility]/pharmacy #[id number] Unchanged aspirin 81 Milligram By Mouth Every [...] physician if questions or concerns Pharmacy Information [facility]/pharmacy #[id number]: [address], [place] [phone] Allergies simvastatin (Muscle pain) Problems Ongoing - [...] (more content not included)... Normal [facility] Ambulatory Visit Summary JOSE TODD [...] Within 2 to 4 weeks Where: [address] [place] [address] Medications What How Much When Instructions New polyethylene glycol 3350 with electrolytes (polyethylene glycol 3350 with electrolytes Oral Pwdr for Katie 4000 mL (NuLytely)) See instructions PER PHYSICIAN INSTRUCTIONS. PRIOR TO COLONOSCOPY. Pickup at [facility]/pharmacy #[id number] Unchanged aspirin 81 Milligram By Mouth Every [...] physician if questions or concerns Pharmacy Information [facility]/pharmacy #[id number]: [address], [place] [phone] Allergies simvastatin (Muscle pain) Problems Ongoing - [...] (more content not included)... Normal [facility] Gastroenterology Office/Clin ic Noteon 06-15-2021 [...] (Hospital Procedure) Office Visit Level 3 New 37392 2. Family history of colon cancer (Z80.0: Family history of malignant neoplasm of digestive organs) Same as above plan of care. See # 1. Ordered: Colonoscopy (Hospital Procedure) Office Visit Level 3 New [address]8428 Orders: polyethylene glycol 3350 with electrolytes, See Instructions, 1 EA, Refill(s) 0, PER PHYSICIAN INSTRUCTIONS. PRIOR TO COLONOSCOPY., [id number], 170.1, cm, 06/15/21 8:58:00 EST, Height/Length Dosing, 106.8, kg, 06/15/21 8:58:00 EST, Weight Dosing Follow-up With When Contact Information MANJIT WILSON, OCTAVIO Fernandez, MED Within 2 to 4 weeks [address] [place] [address] Additional Instructions: Patient Education Colon [...] cancer: Mother and Father. Normal [facility] Comment on above: Result Comment: [...] 01/26/2005 Document Revised: 08/17/2018 Document Reviewed: 08/17/2018 [employer] Patient Education ? 2020 [employer] [facility] Encounters Encounter Date Encounter Type Care Provider Facility Start: 05-25-2024 ambulatory [facility] Start: 03-07-2024 ambulatory [facility] Start: 02-28-2024 ambulatory [facility] Start: 01-06-2024 End: 01-06-[address] [facility] Start: 11-07-2023 ambulatory BERTA LOMAX [facility] Start: 06-17-2023 End: 06-17-[address] [facility] Start: 06-28-2022 End: 06-29-2022 ambulatory [...] Comment on above: Performed By: #### P [facility] ####[facility] [address] [place], [place] [address]Dc[place]man Tiny Miranda Payers Date Payer Category Payer Medicare [id number] 1961 Unknown [id number] 1955 Unknown [id number] 2.16.84 [id number] 1955 Unknown [id number] 2.16.84 [id number] 1955 Unknown [id number] 2.16.84 [id number] 1955 Unknown [id number] 2.16.84 [id number] 1955 Unknown [id number] 2.16.84 [id number] Progress note 01-06-2024 Note Date & Type Note Facility 01-06-2024 Note [facility] Subjective Jose Todd is a [...] General: No focal (more content not included)... [facility] Progress note 06-17-2023 Note Date & Type Note Facility 06-17-2023 Note [facility] Subjective Jose Todd is a [...] tenderness. Musculoskeletal: Ge (more content not included)... [facility] History and physical note 07-20-2021 Note Date & Type Note Facility 07-20-2021 Note [id number]#1.00CD:127 [facility] Summary Purpose Family History No [...] content) DATE CREATED AUTHOR 09/09/2021 [facility] DATE CREATED AUTHOR AUTHOR'S ORGANIZ ATION 09/24/2022 [facility] DATE CREATED AUTHOR AUTHOR'S ORGANIZ ATION 05/30/2024 [facility] FOR RECORDS PERTAINING TO PATIENTS WHO ARE [...] BE BASED ON THE PRIMARY CLINICAL RECORDS. [employer] provides no warranty or guarantee of the accuracy or completeness of information in this document.
[2024-08-01 10:55] LABS: Alanine Aminotransferase 26 U/L (16-63); Albumin Globulin Ratio 1.1; Albumin Level 3.9 g/dL (3.4-5.0); Alkaline Phosphatase 58 U/L (46-116); Anion Gap 11.9; Aspartate Amino Transferase 27 U/L (15-37); BUN Creatinine Ratio 14.2; Bilirubin Total 0.9 mg/dL (0.2-1.0); Calcium 8.8 mg/dL (8.5-10.1); Carbon Dioxide 27.5 mmol/L (21.0-32.0); Chloride 105 mmol/L (98-107); Chol HDL Ratio 2.6; Cholesterol 113 mg/dL (<=200); Estimated GFR (African America >60 (>=60 mL/min/1.73m^2); Estimated GFR (Non-African Ame 60 (>=60 mL/min/1.73m^2); Free T3 3.17 pg/mL (2.18-3.98); Globulin 3.5 g/dL; Glucose 108 mg/dL (74-106); HDL Cholesterol 43 mg/dL (40-60); LDL Cholesterol Calculated 53.2 mg/dL; Potassium 4.4 mmol/L (3.5-5.1); Sodium 140 mmol/L (136-145); Thyroid Stimulating Hormone 1.397 uIU/mL (0.358-3.740); Total Protein 7.4 g/dL (6.4-8.2); Triglycerides 84 mg/dL (<=150); VLDL CHOLESTEROL 16.8 mg/dL
[2024-08-01 11:39] LABS: Prostate Specific Antigen Scrn 1.53 ng/mL (<=4.00)
[2024-08-01 12:14] LABS: Estimated Average Glucose 120 mg/dL; Glycohemoglobin A1C 5.8 % (4.5-6.2)
== END 2024-08-01 09:56 | disposition home or self-care (01) ==
LOC: LAB 09:55
PROVIDERS: PCP Family Medicine; Visit Provider Family Medicine
DX: E78.2 Mixed hyperlipidemia (principal); I10 Essential (primary) hypertension; K21.9 Gastro-esophageal reflux disease without esophagitis; M25.551 Pain in right hip; E78.5 Hyperlipidemia, unspecified; R73.09 Other abnormal glucose
CPT/HCPCS: 36415; 80053; 80061; 83036; 84436; 84443; 84481; 85025; G0103

== ENCOUNTER 2024-08-31 08:59 | Outpatient (OUT) | payer MEDICARE, OTHER, SELFPAY ==
--- NOTE | 2024-08-31 09:01 | MR_ITS ---
The [address] [address] Patient Name: JOSE COLE MRN: [id number] date: 1955 Sex: M Assigned Patient Location: MRI Current Patient Location: MRI Accession/Order Number: [id number] Exam Date: 08/31/2024 14:36 Report Date: 08/31/2024 14:46 At the request of: DEON SPRINGER MD Procedure: MR hip RT wo con MRI the right hip without contrast Routine technique HISTORY: Right hip and back pain with radiation to the right leg. Numbness and tingling. No bone marrow edema. There are no linear fracture. Adequate alignment. No significant joint effusion. Thinning of the lateral portion of the articular cartilage consistent with chondromalacia.. The lateral femoral head subchondral cystic change. Subchondral bone marrow edema. No articular collapse. No AVN. Hip labral intact. Muscle and subcutaneous tissues unremarkable. Gluteus medius and minimus tendons intact with adjacent edema suggesting mild tendinosis. Conjoined tendon intact. 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 Findings suggesting tendinosis of the gluteus medius and minimus tendons. No AVN. No bony contusion or linear fracture. Intact labrum. Impression dictated by: Brian Ramsey M.D.08/31/2024 2:46 PM Dictation Location: [place] [address] Electronically authenticated by: [id number] Y Date: 08/31/2024 14:46
--- OUTSIDE RECORDS SUMMARY | 2024-08-31 09:21 | XMS_ITS | CCD ---
Author Organization [facility] Care Team Providers Care Ginger Farmer Name Role Phone JAVAN ANDERSON Admitting Unavailable [...] Unavailable HOY ., DR CHAVARRIA Consulting Unavailable CALVIN, DR NARCISO Walker Consulting Unavailable HOY ., [...] source) Amino Acids Drug Allergy 6 [facility] Repository (1 source) Hmg-Coa Reductase Inhibitors (Statins); Translations: [XTHAGBP-DQI-BYY REDUCTASE INHIBITORS] Propensity to adverse reactions to drug (disorder) 2 [facility] Repository Problems Active Problems Problem Classification [...] disease (2 sources) Atherosclerotic heart disease of [place] coronary artery without angina pectoris; Translations: [Atherosclerotic heart disease of [place] coronary artery without angina pectoris] Onset: 05-11-2023 [...] in 1 year. LM on . Normal [facility] Office Visiton 01-06-2024 Follow-up visit [id number] Jose Todd 1955 [facility] Provider Department Center 01/06/2024 BRISSA ESCOBAR EFRAÍN Delgado [facility] Family History Problem Relation Age of Onset Heart attack Maternal Grandfather Heart attack Paternal Grandfather Family Status - Relation Status Age at Maternal Grandfather Paternal Grandfather Level of Service:88537 [place] OFFICE/OUTPATIENT ESTABLISHED LOW MDM 20 MIN Normal [facility] Office Visiton 06-17-2023 Follow-up visit [id number] Jose Todd 1955 [facility] Provider Department Center 06/17/2023 BRISSA ESCOBAR EFRAÍN Delgado [facility] Family History Problem Relation Age of Onset Heart attack Maternal Grandfather Heart attack Paternal Grandfather Family Status - Relation Status Age at Maternal Grandfather Paternal Grandfather Level of Service:79952 [place] OFFICE/OUTPATIENT ESTABLISHED LOW MDM 20 MIN Normal [facility] GLYCOHEMOGLOBIN A1Con 2022 ADA RECOMMENDATION SEE BELOW Normal [facility] Comment on above: Result Comment: ADA RECOMMENDED LIMIT 4.0 - 6.0 ADA THERAPEUTIC TARGET < 7.0 ACTION SUGGESTED > 7.0 Performed By: #### A 1C #### [facility] [address] [address] [address] Tiny Miranda Glucose [Mass/Vol] 123 mg/dL Normal [facility] Comment on above: Performed By: #### A 1C #### [facility] [address] [address] [address] Tiny Miranad HbA1c (Bld) [Mass fraction] 5.9 % Normal 4.5-6.2 [facility] Comment on above: Performed By: #### A 1C #### [facility] [address] [place] [address] Dr. Tiny Miranda LIPID PROFILEon 06-28-2022 CHOL-HDL RATIO NORM SEE BELOW Normal [facility] Comment on above: Result Comment: 3.3 - 4.4 LOW RISK 4.4 - 7.1 AVERAGE RISK 7.1 - 11.0 MODERATE RISK >11.0 HIGH RISK Performed By: #### L IVROQUE, LIPID #### [facility] [address] [place] [address] Dr. Tiny Miranda Cholesterol [Mass/Vol] 132 mg/dL Normal <=200 [facility] Comment on above: Performed By: #### L IVROQUE, LIPID #### [facility] [address] [place] [address] Dr. Tiny Miranda Cholesterol in HDL [Mass/Vol] 39 mg/dL Critically low 40-60 [facility] Comment on above: Performed By: #### L IVROQUE, LIPID #### [facility] [address] [address] [address] Tiny Miranda Cholesterol in LDL [Mass/Vol] 70.2 mg/dL Normal [facility] Comment on above: Performed By: #### L IVER, LIPID #### [facility] [address] [place] [address] Dr. Tiny Miranda Cholesterol.total/Cho lesterol in HDL [Mass ratio] 3.4 {ratio} Normal [facility] Comment on above: Performed By: #### L IVER, LIPID #### [facility] [address] [place] [address] Dr. Tiny Miranda HDL NORMAL > or = 60 mg/dl - LO W CARDIOVASCULAR RISK <40 mg/dl - HIGH CARDIOVASCULAR RISK Normal [facility] Comment on above: Performed By: #### L IVER, LIPID #### [facility] [address] [address] [address] Tiny Miranda LDL CALC NORMAL SEE BELOW Normal [facility] Comment on above: Result Comment: <100 mg/dl OPTIMAL 100 - 129 mg/dl NEAR OR ABOVE OPTIMAL 130 - 159 mg/dl BORDERLINE HIGH 160 - 189 mg/dl HIGH >190 mg/dl VERY HIGH Performed By: #### L IVER, LIPID #### [facility] [address] [address] [address] Tiny Miranda Triglyceride [Mass/Vol] 114 mg/dL Normal <=150 [facility] Comment on above: Performed By: #### L IVER, LIPID #### [facility] [address] [address] [address] Tiny Miranda VLDL CALC 22.8 mg/dL Normal [facility] Comment on above: Performed By: #### L IVER, LIPID #### [facility] [address] [address] [address] Tiny Miranda LIVER PROFILEon 06-28-2022 Albumin [Mass/Vol] 3.6 g/dL Normal 3.4-5.0 [facility] Comment on above: Performed By: #### L IVER, LIPID #### [facility] [address] [address] [address] Tiny Miranda Albumin/Globulin [Mass ratio] 1.0 {ratio} Normal [facility] Comment on above: Performed By: #### L IVER, LIPID #### [facility] [address] [address] [address] Tiny Miranda ALP [Catalytic activity/Vol] 48 U/L Normal 46-116 [facility] Comment on above: Performed By: #### L IVER, LIPID #### [facility] [address] [address] [address] Tiny Miranda ALT [Catalytic activity/Vol] 39 U/L Normal 16-63 [facility] Comment on above: Performed By: #### L IVER, LIPID #### [facility] [address] [address] [address] Tiny Miranda AST [Catalytic activity/Vol] 26 U/L Normal 15-37 [facility] Comment on above: Performed By: #### L IVER, LIPID #### [facility] [address] [address] [address] Tiny Miranda BILI, CONJUGATED 0.1 mg/dL Normal 0.0-0.[address] [facility] Comment on above: Performed By: #### L IVER, LIPID #### [facility] [address] [address] [address] Tiny Miranda Bilirubin [Mass/Vol] 0.6 mg/dL Normal 0.2-1.0 [facility] Comment on above: Performed By: #### L IVER, LIPID #### [facility] [address] [address] [address] Tiny Miranda Globulin (S) [Mass/Vol] 3.6 g/dL Normal [facility] Comment on above: Performed By: #### L IVER, LIPID #### [facility] [address] [address] [address] Tiny Miranda Protein [Mass/Vol] 7.2 g/dL Normal 6.4-8.2 [facility] Comment on above: Performed By: #### L IVER, LIPID #### [facility] [address] [address] [address] Tiny Miranda PROF CHEM 8 (BAS METB)on Anion gap [Moles/Vol] 12.4 mmol/L Normal [facility] Comment on above: Performed By: #### B MP ####[facility] [address] [address]Dr. Tiny Miranda Calcium [Mass/Vol] 9.2 mg/dL Normal 8.5-10.1 [facility] Comment on above: Performed By: #### B MP ####[facility] [address] [address]Dr. Tiny Miranda Chloride [Moles/Vol] 104 mmol/L Normal 98-107 [facility] Comment on above: Performed By: #### B MP ####[facility] [address] [address]Dr. Josielisa Ruben CO2 [Moles/Vol] 30.5 mmol/L Normal 21.0-32.[address] [facility] Comment on above: Performed By: #### B MP ####[facility] [address] [address]Dr. Tiny Miranda Creatinine [Mass/Vol] 1.12 mg/dL Normal 0.70-1.30 [facility] Comment on above: Performed By: #### B MP ####[facility] [address] [address]Dr. Tiny Miranda EGFR-AF GABONESE >60 Normal >=[address] [facility] Comment on above: Performed By: #### B MP ####[facility] [address] [address]Dr. Tiny Miranda EGFR-NON AF GABONESE >60 Normal >=60 [facility] Comment on above: Performed By: #### B MP ####[facility] [address] [place], [place] [address]Dr. Tiny Miranda Glucose [Mass/Vol] 121 mg/dL Critically high 74-106 [facility] Comment on above: Performed By: #### B MP ####[facility] [address] [address]Dr. Tiny Miranda Potassium [Moles/Vol] 4.9 mmol/L Normal 3.5-5.1 [facility] Comment on above: Performed By: #### B MP ####[facility] [address] [address]Dr. Tiny Miranda Sodium [Moles/Vol] 142 mmol/L Normal 136-145 [facility] Comment on above: Performed By: #### B MP ####[facility] [address] [address]Dr. Tiny Miranda Urea nitrogen [Mass/Vol] 14.0 mg/dL Normal 7.0-18.0 [facility] Comment on above: Performed By: #### B MP ####[facility] [address] [place], [place] [address]QjColeman Miranda Urea nitrogen/Creatinine [Mass ratio] 12.5 mg/mg Normal [facility] Comment on above: Performed By: #### B MP ####[facility] [address] [place], [place] [address]TxColmean Miranda US MARY DOP LEG LTon 05-19-19 [...] by: KUSH GARSIA Date: 2022-05-19 16:[address] [facility] NM STRESS/REST MULTIon 04-14 NM STRESS/REST MULTI Patient: JOSE TODD Exam Date: 04/14/2022 : 1955 Gender:M Ordering : DR DEON MIR . Admission #: [id number] Family : Order #: [id number] CLICK HERE TO VIEW EXAM RADIOLOGY REPORT [...] MD on 04/15/2022 at 07:51 Normal [facility] HEPATITIS PANEL, ACUTEon HBsAg Screen Negative Normal Negative [facility] Comment on above: Performed By: #### H EPACUT ####[facility] [address] [address]Dr. Tiny Miranda HCV AB <0.1 Normal 0.0-0.9 [facility] Comment on above: Performed By: #### H EPACUT ####[facility] [address] [address]Dr. Tiny Miranda Hep A Ab, IgM Negative Normal Negative [facility] Comment on above: Performed By: #### H EPACUT ####[facility] [address] [address]Dr. Tiny Miranda Hep B Core Ab, IgM Negative Normal Negative [facility] Comment on above: Performed By: #### H EPACUT ####[facility] [address] [id number][address] Tiny Miranda Interpretation: Comment Normal [facility] Comment on above: Result Comment: Nega tive Not infected with HCV, unless recent infection is suspected or other evidence exists to indicate HCV infection. Performed By: #### H EPACUT ####[facility] [address] [address]Dr. Tiny Miranda INSULINon 04-06-2022 Insulin 51.4 uIU/mL Critically high 2.6-24.9 [facility] Comment on above: Performed By: #### I NSULIN ####[facility] [address] [place], [place] [address]NmDr. Tiny Miranda BNPon 04-05-2022 Natriuretic peptide B (Bld) [Mass/Vol] 20.0 pg/mL Normal <=900.0 [facility] Comment on above: Performed By: #### C MP, BNP, LIPID #### [facility] [address] [address] [address] Tiny Miranda CBC AUTO DIFFon 04-05-2022 BASO # 0.1 103/ul Normal 0.0-0.1 [facility] Comment on above: Performed By: #### C BC #### [facility] [address] [address] [address] Tiny Miranda Basophils/100 WBC (Bld) 1.8 % Normal 0.2-2.0 [facility] Comment on above: Performed By: #### C BC #### [facility] [address] [place] [address] Dr. Tiny Miranda EO # 0.2 103/ul Normal 0.0-0.7 [facility] Comment on above: Performed By: #### C BC #### [facility] [address] [place] [address] Dr. Tiny Miranda Eosinophils/100 WBC (Bld) 3.9 % Normal 0.9-7.0 [facility] Comment on above: Performed By: #### C BC #### [facility] [address] [place] [address] Dr. Tiny Miranda Erythrocyte distribution width (RBC) [Ratio] 12.9 % Normal 11.0-15.0 [facility] Comment on above: Performed By: #### C BC #### [facility] [address] [place] [address] Dr. Tiny Miranda Hematocrit (Bld) [Volume fraction] 47.8 % Normal 42.0-54.0 [facility] Comment on above: Performed By: #### C BC #### [facility] [address] [place] [address] Dr. Tiny Miranda Hemoglobin (Bld) [Mass/Vol] 16.5 g/dL Normal 14.0-18.0 [facility] Comment on above: Performed By: #### C BC #### [facility] [address] [place] [address] Dr. Tiny Miranda IG # 0.03 10e3/ul Normal 0.00-0.03 [facility] Comment on above: Performed By: #### C BC #### [facility] [address] [place] [address] Dr. Tiny Miranda IG % 0.5 % Normal 0.0-0.5 [facility] Comment on above: Performed By: #### C BC #### [facility] [address] [place] [address] Dr. Tiny Miranda LYMPH # 1.8 103/ul Normal 1.2-3.8 [facility] Comment on above: Performed By: #### C BC #### [facility] [address] [place] [address] Dr. Tiny Miranda Lymphocytes/100 WBC (Bld) 31.2 % Normal 20.5-60.0 [facility] Comment on above: Performed By: #### C BC #### [facility] [address] [place] [address] Dr. Tiny Miranda MANUAL DIFF REQ NO Normal [facility] Comment on above: Performed By: #### C BC #### [facility] [address] [place] [address] Dr. Tiny Miranda MCH (RBC) [Entitic mass] 32.4 pg Normal 25.9-34.0 [facility] Comment on above: Performed By: #### C BC #### [facility] [address] [place] [address] Dr. Tiny Miranda MCHC (RBC) [Mass/Vol] 34.5 g/dL Normal 29.9-35.2 [facility] Comment on above: Performed By: #### C BC #### [facility] [address] [place] [address] Dr. Tiny Miranda MCV (RBC) [Entitic vol] 93.7 fL Normal 80.0-94.0 [facility] Comment on above: Performed By: #### C BC #### [facility] [address] [place] [address] Dr. Tiny Miranda MONO # 0.4 103/ul Normal 0.3-0.8 [facility] Comment on above: Performed By: #### C BC #### [facility] [address] [place] [address] Dr. Tiny Miranda Monocytes/100 WBC (Bld) 6.9 % Normal 1.7-12.0 [facility] Comment on above: Performed By: #### C BC #### [facility] [address] [place] [address] Dr. Tiny Miranda NEUT # 3.2 103/ul Normal 1.4-6.5 [facility] Comment on above: Performed By: #### C BC #### [facility] [address] [place] [address] Dr. Tiny Miranda Neutrophils/100 WBC (Bld) 55.7 % Normal 43.0-75.0 [facility] Comment on above: Performed By: #### C BC #### [facility] [address] [place] [address] Dr. Tiny Miranda Platelet mean volume (Bld) [Entitic vol] 9.0 fL Critically low 9.5-13.5 [facility] Comment on above: Performed By: #### C BC #### [facility] [address] [place] [address] Dr. Tiny Miranda PLT 219 103/ul Normal 150-450 [facility] Comment on above: Performed By: #### C BC #### [facility] [address] [place] [address] Dr. Tiny Miranda RBC 5.10 106/ul Normal 4.70-6.10 [facility] Comment on above: Performed By: #### C BC #### [facility] [address] [place] [address] Dr. Tiny Miranda WBC 5.7 103/ul Normal 4.0-11.0 [facility] Comment on above: Performed By: #### C BC #### [facility] [address] [address] [address] Tiny Miranda GLYCOHEMOGLOBIN A1Con 2021 ADA RECOMMENDATION SEE BELOW Normal [facility] Comment on above: Result Comment: ADA RECOMMENDED LIMIT 4.0 - 6.0 ADA THERAPEUTIC TARGET < 7.0 ACTION SUGGESTED > 7.0 Performed By: #### A 1C #### [facility] [address] [place] [address] Dr. Tiny Miranda Glucose [Mass/Vol] 140 mg/dL Normal [facility] Comment on above: Performed By: #### A 1C #### [facility] [address] [place] [address] Dr. Tiny Miranda HbA1c (Bld) [Mass fraction] 6.5 % Critically high 4.5-6.2 [facility] Comment on above: Performed By: #### A 1C #### [facility] [address] [place] [address] Dr. Tiny Miranda LIPID PROFILEon 04-05-2022 CHOL-HDL RATIO NORM SEE BELOW Normal [facility] Comment on above: Result Comment: 3.3 - 4.4 LOW RISK 4.4 - 7.1 AVERAGE RISK 7.1 - 11.0 MODERATE RISK >11.0 HIGH RISK Performed By: #### C MP, BNP, LIPID #### [facility] [address] [place] [address] Dr. Tiny Miranda Cholesterol [Mass/Vol] 241 mg/dL Critically high <=200 [facility] Comment on above: Performed By: #### C MP, BNP, LIPID #### [facility] [address] [place] [address] Dr. Tiny Miranda Cholesterol in HDL [Mass/Vol] 41 mg/dL Normal 40-60 [facility] Comment on above: Performed By: #### C MP, BNP, LIPID #### [facility] [address] [place] [address] Dr. Tiny Miranda Cholesterol in LDL [Mass/Vol] 167.6 mg/dL Normal [facility] Comment on above: Performed By: #### C MP, BNP, LIPID #### [facility] [address] [place] [address] Dr. Tiny Miranda Cholesterol.total/Cho lesterol in HDL [Mass ratio] 5.9 {ratio} Normal [facility] Comment on above: Performed By: #### C MP, BNP, LIPID #### [facility] [address] [place] [address] Dr. Tiny Miranda HDL NORMAL > or = 60 mg/dl - LO W CARDIOVASCULAR RISK <40 mg/dl - HIGH CARDIOVASCULAR RISK Normal [facility] Comment on above: Performed By: #### C MP, BNP, LIPID #### [facility] [address] [place] [address] Dr. Tiny Miranda LDL CALC NORMAL SEE BELOW Normal [facility] Comment on above: Result Comment: <100 mg/dl OPTIMAL 100 - 129 mg/dl NEAR OR ABOVE OPTIMAL 130 - 159 mg/dl BORDERLINE HIGH 160 - 189 mg/dl HIGH >190 mg/dl VERY HIGH Performed By: #### C MP, BNP, LIPID #### [facility] [address] [place] [address] Dr. Tiny Miranda Triglyceride [Mass/Vol] 162 mg/dL Critically high <=150 [facility] Comment on above: Performed By: #### C MP, BNP, LIPID #### [facility] [address] [place] [address] Dr. Tiny Miranda VLDL CALC 32.4 mg/dL Normal [facility] Comment on above: Performed By: #### C MP, BNP, LIPID #### [facility] [address] [place] [address] Dr. Tiny Miranda PROF 14(COMP METB)on 022 Albumin [Mass/Vol] 4.0 g/dL Normal 3.4-5.0 [facility] Comment on above: Performed By: #### C MP, BNP, LIPID #### [facility] [address] [place] [address] Dr. Tiny Miranda Albumin/Globulin [Mass ratio] 1.0 {ratio} Normal [facility] Comment on above: Performed By: #### C MP, BNP, LIPID #### [facility] [address] [place] [address] Dr. Tiny Miranda ALP [Catalytic activity/Vol] 56 U/L Normal 46-116 [facility] Comment on above: Performed By: #### C MP, BNP, LIPID #### [facility] [address] [place] [address] Dr. Tiny Miranda ALT [Catalytic activity/Vol] 154 U/L Critically high 16-63 [facility] Comment on above: Performed By: #### C MP, BNP, LIPID #### [facility] [address] [place] [address] Dr. Tiny Miranda Anion gap [Moles/Vol] 10.9 mmol/L Normal [facility] Comment on above: Performed By: #### C MP, BNP, LIPID #### [facility] [address] [place] [address] Dr. Tiny Miranda AST [Catalytic activity/Vol] 86 U/L Critically high 15-37 [facility] Comment on above: Performed By: #### C MP, BNP, LIPID #### [facility] [address] [place] [address] Dr. Tiny Miranda Bilirubin [Mass/Vol] 0.8 mg/dL Normal 0.2-1.0 [facility] Comment on above: Performed By: #### C MP, BNP, LIPID #### [facility] [address] [place] [address] Dr. Tiny Miranda Calcium [Mass/Vol] 9.0 mg/dL Normal 8.5-10.1 [facility] Comment on above: Performed By: #### C MP, BNP, LIPID #### [facility] [address] [place] [address] Dr. Tiny Miranda Chloride [Moles/Vol] 102 mmol/L Normal 98-107 [facility] Comment on above: Performed By: #### C MP, BNP, LIPID #### [facility] [address] [place] [address] Dr. Tiny Miranda CO2 [Moles/Vol] 28.3 mmol/L Normal 21.0-32.[address] [facility] Comment on above: Performed By: #### C MP, BNP, LIPID #### [facility] [address] [address] [address] Tiny Miranda Creatinine [Mass/Vol] 1.12 mg/dL Normal 0.70-1.30 [facility] Comment on above: Performed By: #### C MP, BNP, LIPID #### [facility] [address] [address] [address] Tiny Miranda EGFR-AF GABONESE >60 Normal >=[address] [facility] Comment on above: Performed By: #### C MP, BNP, LIPID #### [facility] [address] [address] [address] Tiny Miranda EGFR-NON AF GABONESE >60 Normal >=60 [facility] Comment on above: Performed By: #### C MP, BNP, LIPID #### [facility] [address] [address] [address] Tiny Miranda Globulin (S) [Mass/Vol] 4.1 g/dL Normal [facility] Comment on above: Performed By: #### C MP, BNP, LIPID #### [facility] [address] [address] [address] Tiny Miranda Glucose [Mass/Vol] 132 mg/dL Critically high 74-106 [facility] Comment on above: Performed By: #### C MP, BNP, LIPID #### [facility] [address] [address] [address] Tiny Miranda Potassium [Moles/Vol] 4.2 mmol/L Normal 3.5-5.1 [facility] Comment on above: Performed By: #### C MP, BNP, LIPID #### [facility] [address] [address] [address] Tiny Miranda Protein [Mass/Vol] 8.1 g/dL Normal 6.4-8.2 [facility] Comment on above: Performed By: #### C MP, BNP, LIPID #### [facility] [address] [address] [address] Tiny Miranda Sodium [Moles/Vol] 137 mmol/L Normal 136-145 [facility] Comment on above: Performed By: #### C MP, BNP, LIPID #### [facility] [address] [place], [place] [address] Dr. Tiny Miranda Urea nitrogen [Mass/Vol] 15.0 mg/dL Normal 7.0-18.0 [facility] Comment on above: Performed By: #### C MP, BNP, LIPID #### [facility] [address] [place], [place] [address] Dr. Tiny Miranda Urea nitrogen/Creatinine [Mass ratio] 13.4 mg/mg Normal [facility] Comment on above: Performed By: #### C MP, BNP, LIPID #### [facility] [address] [place], [place] [address] Dr. Tiny Miranda Reminderson 09-08-2021 Reminders - From: Aguilar Sanchez To: [facility] - Reminders/Recalls; Sent: 09/07/2021 22:51:37 EDT Show up: 07/14/2026 22:51:00 EST Subject: Ambulatory Reminder Due Date/Time: 08/14/2026 22:51:00 EDT Reminder/Recall colonoscopy reminder 5 years Normal [facility] IntraOperative Documentson 0 07-27-2021 IntraOperative Documents [id number]# 1.00CD:127 Normal [facility] Postoperative Documentson Postoperative Documents [id number]#1 .00CD:127 Normal [facility] Coding Summary.on 07-21-2021 Coding Summary. CD:[id number] G h0bWw+PGhlYWQ+HD6MBKS aI75lsJRdtN1FE4xJLY0E CKXXZDGRTX3HKH5nzIE9J FdhC3CujuVl IslopXAnDY18VNx9IEF4q CknAPhbrX7muYYqP4h7Sr BrXK13xM09OOiaQBNiMsN 3LjZpbjsgbWFy P5avEhXzuSCyZwx+PHRhY mxlIHdpZHRoPScxMDAlJy VbfAveAT8gTy8bZUXlVUB vbGxhcHNlOiBj m7ztEFElSIvtJJ2gtDbnZ 7NynCP4AWUgo8j7Mz66jU I+XNKbMFX9iSezWUsea42 8ZzVrj9ddBVH8 aTDuDIaaRJC1J70xu9J8Y FDmDCNjQOM2dLR6hX3bnJ blzhlzU2JbpMUiQcM9EQR 3lRGsmB9roUww avlweT4qXry+V86CHJ5BL DADPV0GDwg7D3VwPbdotI I+BP04FTEtXG01tNGhsWW di9sxaBw3EwAv SVTjDQG5tMcmNBuhr0RgY TDaA70okSAvv2E4XFHydY gbaZCpQjTneTD8nI8bTUg ygqwog4yyhrsy Jxvqw3glda30iZ05Z07dS AkaNJBeLIV8JHXxPJDhlW brad6wjJ4iRj5+OUfkr7g xb7zqmMn2QnMq HQZwjeBzjFtjBAV4h4XsS g87J1CxuLqwj0TaMzg8yl 46wIXil1H3fJK9FSqoLWD jdV2yJFmdMyN3 YSRqQhUcuO79mAGrWTorD p0fhIovjXldVP3hXFTjfj hzPGVptB2vTSFhnNJdtZg rVQ4pSQJvvhoz t689WxYoKZQ1GCQcnANoS 0OgpS6gRxByJSAnENTkE6 GjyRFeMOgvY471WGyjMdD 2VGGjgmNvZ3Bp TXYmnKrgYdA2y5D3Tf3As 0PcfeyfJTE2QGouXQMjAx X6BqZgQbN0F1NdFgw2HLE rqNcoJO2nB1Dj PPGefzhsbooxjQN4IROaD FDkdX33pBQwFBegPp9dk1 D6l486RVNcRWZeuL47Qy4 udDogMTBwdCBU zV0mkrjip3eyabrnExEyQ ZHkLRg9PIn0DRYviDlwMv LaESA7YsG6TCY9qXTgbN7 kwBrznhruvB2m Oyc+J03fsI8tCQH3DCY1z cehRFIzuhGzKO82PI67Q5 RyPjwvdGFibGU+PGRpdiB elTotZX4nCwYo g8ryx4PoPKduO9LzSRVgG DqwFyq2DGUyDSW5xNW7sA 5vEZXtZAiwb1X3bSS6U2F szxXbpw4dl0hh GDXjBZhvT52heQPhq0S9V QWnxKG4UVVhbHjeFzIxeA 93Oyc+CAMcvSzcv4ZnIcd gy1raj0dlbJr4 SdMuZPArtjPhhXucVVG4j 8EvTr88T45vQNnmVRDaYO YyEARmZVTzpXdzrr5cjN3 wIi8+PGNvbCB3 gHX4pN2uDUIjKmP3QWjkW 984OoAgiJNuNgnib4aoq9 esbMk9AwIbEWIhblWziQr sYGH7g7LiQp32 Z18vACzzAZYuAYLwMCKoM CEcnDwwig0cpG9uPk6+PC 8dh7vzba48hW50nCZ+PHR gOQK5sSjxYMjg XEHnxY4iLEsdVqF4OBPdL tPpbE75dRHpWYtpOw7xeY gxwKpiMV5oPQHopczzo75 4LpGsc3aaVTJp pZLqYIffZUX2W08za7L0M PYeRFFcQMR7kML9sH4opD lnbjogbGVmdDsgdmVydGl dIDwhRGkkM945 IHRvcDsnPlBhdGllbnQgT kPpYXd2Z3QuShh4XSYzkO meHU1unOCtMSteZg2wgPb zyLgcLC5nIIQk fyikh466WkXez1abIZAlv OTgDNvkBZC3U09cl2E7GN TrCOXyXDJ1gGX6tP7srMt nbjogbGVmdDsg cjCzcIaaYZhkHZpvX892C HRvcDsnPkJpcnRoIERhdG S1JT25TT76qSVja3O1eYO 1I5JuPKXwwvkl keihcNA4DVKaHDFzvF65Q x8awNcdPs9qZZTyZZP2RN MrsWPxJ8QnzS6gXuXqCCS gLNZmU5AcdIKi QLgbX454TSoqFyY5VWDzb yMjY2NpTCYpuBtwAzC1f4 H0An8EB1H3XL39IM40lTQ pk4D5sIX7Q5Qn OFSxkzobbxqwdCC2SJRzE GOopQ25Cn5hyQlwTy5rCK LjISO2BWSamJVkE1GuyR1 yOiAjMDAwMDAw N8ZjjLGbEBnaE987OSfgR sB5YQOvhnMoA2AqPYSijD iyUpK5l8Z7Jc9GZXi0NW4 0FZ74wLFrq4N7 xKH1Y8ZjQBWipdacxbzyq QH7IIQdYPDuzZ13Od5qiD wdGu7wPFShUUB3WMLgwWL kV9VuaP6oNhXr RPSlBLMvS5EzyHNjHZosH 032LIuyMoD1QPCcspNdH8 LhDXKtsYjqSmU9f3M1Ly1 CKUEeBI82HJV0 qXN3YL87WC14P3GtPbodc GFibGU+PHRhYmxlIHdpZH RoPScxMDAlJyBzdHlsZT0 mGc5qNDFtJBCl yRjzeFYhMtXmc2ozTYMyU RkcEO4tsFvuD1BhfNS5MM Dve0n7Hf60Y43sQ4BvgAO +JKJiqCY2wWZ6 kZ6qPoOzJcB6MPmyI229U nUssKIaSclvg4cdk4sxvT t3XyT1ZNFsbcCqdYnzUIS 2i6KeBy58P09r IHdpZHRoPSIxNSUiIHZhb Ajosx8rfF6fGe3+PGNvbC E4tBT2iY8eXkFtKhN0ADs rE191PiGthSKl Dkjgx6qds8ttcEl9GjCqV QAmvaRreXbfTEW3l1DpDo 86C9TrwTdwx9MpFfv0hz9 8aCQmv0F2gTZ4 W9AbOJKyahxcyMOspNwjH U0pMWCeuzluABShaE9nFO EcA8o6ZyFoMrO4PFysD8I fycD6PMUbyVEi OTnnSOH9S39xa9Q8KUEjN JNoJXS8kTH6hD6orZuwbf ogbGVmdDsgdmVydGljYWw zPAwcL951QYAp hGvxPJAviP9aTJVkoHWja UdmXH6vSRCwmkvwPqVUIo PNQgZcURgALPwGEI9tDGz vdGQ+PHRkIHN0 cFijHUnhVTWvnF2tWJXgU 5w9OwUqZiE7QHveU9JvOT LwhvmeLn86cN9oCgXsDrJ 1FNujU1YecnD1 JYCdcFNgJNvhPYM2O31zo 0Y8GXOxBABwZZO5dPI2mJ 1hbGlnbjogbGVmdDsgdmV ydGljYWwtYWxp L382ZEEnyMnwGlShRgZcL gR7WXP0K8LuJmz1NJBlyZ goVI8kgJEiSReeYl8jtUe yzYphSR7iWOXj rtvxQQBmfT9kHZAtkWUpb UfsRL8pJWHjbqcng523Cf XuTTH4UYKiiXZuJ8HzrB8 yOiAjMDAwMDAw H1GkfHWaWUkbN046GSunI yX7LQBnoeEnS8LrODGdoO qyTyZ1x1Z1Hf31ICSGLQM yczwvdGQ+PHRk VWU8xJvcJGqvPOZotO4gR KBxA3i8HsWoFwJ1YBxnT8 MfBPKrtdicZv18fD8pHmJ hDmY3ANnxS2Oi rjV7PVBzwGPsKWjqJAI6D 77zv9B5BLQiGONiQUU2bF L5aX6ceGoinolkcBJboYz gdmVydGljYWwt TOgcJ672WVQqvXrdRj9hw TS9L4DaUnb9PUMilWmeXV 1kjGSsVVvdFp3lpPbdwTt oSB1aBDUxqulk VYCtvY6hEWPntSAtbYidL K1hWEEzhtlnc336GgTdQA J4CUZycDFrU3GtmG5lZxM sCCNrOJYnM0Vh tCHxHPfgM659EVqfIcA2E TEggoUvR8AzYTHjrPgdTj A2r6O7Ih1IgXSnXZKsJW3 3AO73JM42X5Xs PjwvdGFibGU+PHRhYmxlI HdpZHRoPScxMDAlJyBzdH qiQI5qVb7oCNBwLJPkdLh emODcAzSwo4tb XWTcMLznIS8sfQuaN1Ydi DO4KLDgz9h4Qw31X36hZ4 JvdXA+UOUbcFH1rIO6lX3 sQwRxZbD0DVnm A809CuMtwXUsKotmd9pmc 2ofiJh8WfMkXUXiocSarB zdCHR4i4TlLw02F75mTBk pZHRoPSIyMCUi GAKybAfjal0qiX1nNy2+P ASqqBU7iUP3uI4lGxLxPg X4YLyzP650RcFwzYJuOcz dF65fV5FqzKR+ VLUhFem2LPGviUhaQL5tv BGdHAktDf3wRGJ6NcMlXs TiJKxrX0VsWFPijzdbwgn nxEU0BYOjTTEe kL95Gc6bkIukEa0lZISmX NM1KIEhfQBoO6KpfU5rOi RqSZIsKQApY8TcaQUzPCz oH314BRbeTdT1 XVLhzdUkW1LvGRGhxBopN sS5t6J1Al8QdAncoYNdMU 9hPpKeNRg7J3GxMek6CCI waZdrRF4uvQNc GDvnAk0wuQyyvWvyZT8pH LGhsespk534IkSgr3dvNN BxrVLuNEznWHD3Y70eh2U 2MQExZLCvTHA1 uDD2hU6ttHuozxibrNSfm DsgdmVydGljYWwtYWxpZ2 61SPPwdBqoRmZNJxv4N4R iVle1WKJadTzu MF9eaOQuCFvhCi3gjOpma SqdSA7oRHAbekhtv861Ov Zgc1eqFHAyjEOgCMewAYO 5W91in2D5VYZt YOPuUUD2jEO6pV1uzOsby jogbGVmdDsgdmVydGljYW qvNXlsS853TWJmwZjtFb8 VFfa0V1BqUag2 HLBlhZwsKD9hpRZfTIymQ b4zuOotyBnaYF4pTXOvvo lfp958TiBme0wyADJizGO wVKowDPK7K69p g0S0IQIzRBRsZRA0qHU7q O2dbIydghmlnWNbwDliqf IdiLldQLstCTceA455ATE vcDsnPlBheWVy OjwvdGQ+TF34fu99R1GmQ sgaXrg5UIXtVRK7dSO8wN 7lYCBxXBseu2W3gHT3U0Q ijwQmje5qu4jw YXBz (more content not included)... Normal [facility] Main OR Intraoperative Recor don 07-21-2021 Main OR Intraoperative Record IntraOp Document Type FT Summary Primary Physician: Rebecca SARAVIA MD Finalized Date/Time: 07/21/21 12:04:08 Pt. Name: JOSE TODD /Sex: 1955 Male Med Rec #: [id number] Physician: MANJIT WILSON, Rebecca Financial #: [id number] Pt. Type: O Room/Bed: / Admit/Disch: 07/17/21 [...] Burrows Role Performed Anesthesiologist Surgeon - Primary Professional Bondsman - Primary Barrel Burner Time In 07/17/21 12:31:00 07/17/21 12:31:00 07/17/21 [...] colon polypectomy Primary Procedure Yes Primary Surgeon Rbeecca SARAVIA MD Start 07/17/21 12:34:00 Stop 07/17/21 [...] Right (more content not included)... Normal [facility] Consenton 07-20-2021 Consent [id number]# 1.00CD:127 [facility] Discharge Instructionson Discharge Instructions [id number]# 1.00CD:127 [facility] IntraOperative Documentson 0 07-20-2021 IntraOperative Documents [id number]# 1.00CD:127 [facility] IntraOperative Documents [id number]# 1.00CD:127 [facility] Consent for Treatmenton Consent for Treatment [id number]#1 .00CD:127 [facility] Endoscopic Procedure Report - Otheron [...] to activities:: After 24 hours. Normal [facility] Comment on above: Result Comment: Elec tronically Signed By: Rebecca SARAVIA MD\.br\Date and Time Signed: 07/17/21 12:44 EST Other Comment: Claudia veras Attachment - attachment storage system not supported [id number] Can be viewed in source system Missing Attachment - attachment storage system not supported [id number] Can be viewed in source system Missing Attachment - attachment storage system not supported [id number] Can be viewed in source system Inpatient Patient Summaryon 07-17-2021 Inpatient Patient Summary [address] [address] [facility] Clinical Discharge Instructions PERSON INFORMATION Name: JOSE TODD PHYSICIANS Admitting Physician: Rebecca SARAVIA MD Attending Physician: Rebecca SARAVIA MD PCP: Clarke WILSON, Deon Discharge Diagnosis: Colon polyp Comment: PATIENT EDUCATION INFORMATION Instructions: Colonoscopy, Care After Surgery Manjit (CUSTOM); Colon Polyps Medication Leaflets: Follow up: With: Address: When: Rebecca SARAVIA [address] [place] [address] [place] [address] [phone] Picateers (2) Comments: office will call fof follow up MEDICATION LIST Medications to Continue with No Changes Other Medications aspirin 81 Milligram By Mouth every day. Ordered by another provider.. losartan (Cozaar 100 mg Tab) 1 Tablets By Mouth every day. omeprazole (omeprazole 40 mg Cap-EC) 1 Capsules By Mouth every day. Comment: Normal [facility] Main OR PACU I Recordon Main OR PACU I Record PACU Phase I Docum ent Type FT Summary Primary Physician: Rebecca SARAVIA MD Finalized Date/Time: 07/17/21 14:31:57 Pt. Name: JOSE TODD /Sex: 1955 Male Med Rec #: [id number] Physician: Rebecca SARAVIA MD Financial #: [id number] Pt. Type: O Room/Bed: / Admit/Disch: 07/17/21 [...] 07/17/21 14:31 Bharti Kamara RN 07/17/21 14:31 [facility] Main OR Preoperative Recordo n 07-17-2021 Main OR Preoperative Record Holding Area Document Type FT Summary Primary Physician: Rebecca SARAVIA MD Finalized Date/Time: 07/17/21 11:54:32 Pt. Name: JOSE TODD Markos Geiger/Sex: 1955 Male Med Rec #: [id number] Physician: Rebecca SARAVIA MD Financial #: [id number] Pt. Type: O Room/Bed: / Admit/Disch: 07/17/21 [...] Paola Falk RN 07/17/21 11:54 Normal [facility] Monitor Recordon 07-17-2021 Monitor Record [id number]# 1.00CD:127 Normal [facility] Monitor Record [id number]# 1.00CD:127 Normal [facility] Outpatient Surgery Discharge Instructionon 07-17-2021 Outpatient Surgery Discharge Instruction [address] [address] Patient Discharge Instructions PERSON INFORMATION Name: JOSE [...] Follow up: With: Address: When: Rebecca SARAVIA [address] [place] [address] [place] [address] [phone] Business (1) Comments: office will call fof follow up Pharmacy Information: [facility] You may receive a survey from [employer] asking you to rate your care experience. Your feedback is important and will help us understand what we do well and how we can improve the quality of care we provide to you, your loved ones and our community. It?s an honor to serve you. Thank you for choosing [facility] HERE ARE THE MEDICATION CHANGES THAT OCCURRED [...] Are (more content not included)... Normal [facility] Patient Education - Texton 0 07-17-2021 [...] are (more content not included)... Normal [facility] Progress Note-Physicianon Progress Note-Physician Patient: JOSE TODD Age: 66 years Sex: Male : 1955 Associated Diagnoses: None Author: Jose Romano Jr., DO Postoperative Information Post Operative Note: Post Anesthesia Care Unit. Anesthetic utilized: General. Health Status Allergies: Allergic Reactions (Selected) Severity Not Documented Simvastatin- Muscle pain. Problem list: All Problems Hyperplastic polyp of sigmoid colon / SNOMED CT 029166861 / Confirmed History of DVT of lower extremity / SNOMED CT 4396875758 / Confirmed Tubulovillous adenoma of colon / SNOMED CT 9364546012 / Confirmed HTN (hypertension) / SNOMED CT 1258089807 / Confirmed Gastric ulcer / SNOMED CT 2568996713 / Confirmed GERD (gastroesophageal reflux disease) / SNOMED CT 627742492 / Confirmed Sleep apnea / SNOMED CT 512580039 / Confirmed Hypercholesteremia / SNOMED CT 00351865 / Confirmed Fecal occult blood test positive / SNOMED CT 82523128 / Confirmed Personal history of colonic polyps / SNOMED CT 0069430535 / Confirmed BMI 35.0-35.9,adult / SNOMED CT 103400703 / Confirmed History of colon polyps / SNOMED CT 0320096664 / Confirmed Family history of colon cancer / SNOMED CT 580950350 / Confirmed Resolved: HTN (hypertension) / SNOMED CT 9904PV3E-7093-6077-79 [id number] Physical Examination Vital Signs 07/17/2021 12:55 EST [...] Plan Transfer/ Discharge: Condition stable. Normal [facility] Comment on above: Result Comment: Elec [...] 0, PER PHYSICIAN INSTRUCTIONS. PRIOR TO COLONOSCOPY., [employer] #[id number], 170.1, cm, 06/15/21 8:58:00 EST, [...] Histories Past Medical History: Resolved HTN (hypertension) ([id number]): Resolved. Family History: Diverticulitis of colon Father Metastatic cancer Mother Father Procedure history: Colonoscopy ([id number]) on 05/16/2016 at 61 Years. Cholecystectomy ([id number]) on 05/16/2011 at 56 Years. Comments: 12/04/2019 10:14 Nhi Hernandez LPN, Dr. Cataract ([id number]) on 05/16/2009 at 54 Years. Comments: 12/04/2019 10:15 Nhi Hernandez LPN left eye Appendectomy ([id number]) on 05/16/1964 at 9 Years. Social History Social & Psychosocial Habits Alcohol 12/04/2019 Risk Assessment: Denies Alcohol Use 06/15/2021 Use: Current Type: Liquor Frequency: 1-2 times per month Substance Abuse 12/04/2019 Risk Assessment: Denies Substance Abuse Tobacco 06/15/2021 Tobacco Use: Never (less than 100 in l . Physical Examination Respiratory: Lungs are clear to auscultation. Cardiovascular: Regular rhythm. Plan [place] [employer] Anesthesi[employer] (ASA) physical status classification: Class III. Anesthetic Preoperative Plan Anesthesia: General. . Anesthetic plan, risks, benefits, and alternatives discussed with the patient and/or family. Patient verbalized understanding. [facility] Comment on above: Result Comment: Elec tronically Signed By: Jose Romano Jr., DO\.br\Date and Time Signed: 07/17/21 09:35 EST Consent for Procedure/Surger yon 06-16-2021 Consent for Procedure/Surgery [id number]# 1.00CD:127 [facility] Ambulatory Visit Summaryon 0 06-15-2021 [...] Within 2 to 4 weeks Where: [address] [place] [address] Medications What How Much When Instructions New polyethylene glycol 3350 with electrolytes (polyethylene glycol 3350 with electrolytes Oral Pwdr for Katie 4000 mL (NuLytely)) See instructions PER PHYSICIAN INSTRUCTIONS. PRIOR TO COLONOSCOPY. Pickup at [facility]/pharmacy #[id number] Unchanged aspirin 81 Milligram By Mouth Every [...] physician if questions or concerns Pharmacy Information [facility]/pharmacy #[id number]: [address] [place], [place] [phone] Allergies simvastatin (Muscle pain) Problems Ongoing - [...] provider. (more content not included)... Normal [facility] Ambulatory Visit Summary JOSE TODD :1955 [...] Within 2 to 4 weeks Where: [address] [place] [address] Medications What How Much When Instructions New polyethylene glycol 3350 with electrolytes (polyethylene glycol 3350 with electrolytes Oral Pwdr for Katie 4000 mL (NuLytely)) See instructions PER PHYSICIAN INSTRUCTIONS. PRIOR TO COLONOSCOPY. Pickup at [facility]/pharmacy #[id number] Unchanged aspirin 81 Milligram By Mouth Every [...] physician if questions or concerns Pharmacy Information [facility]/pharmacy #[id number]: [address] [place], [place] [phone] Allergies simvastatin (Muscle pain) Problems Ongoing - [...] provider. (more content not included)... Normal [facility] Gastroenterology Office/Clin ic Noteon 06-15-2021 Gastroenterology [...] (Hospital Procedure) Office Visit Level 3 New [address] 2. Family history of colon cancer (Z80.0: Family history of malignant neoplasm of digestive organs) Same as above plan of care. See # 1. Ordered: Colonoscopy (Hospital Procedure) Office Visit Level 3 New [address] Orders: polyethylene glycol 3350 with electrolytes, See Instructions, 1 EA, Refill(s) 0, PER PHYSICIAN INSTRUCTIONS. PRIOR TO COLONOSCOPY., [facility][id number], 170.1, cm, 06/15/21 8:58:00 EST, Height/Length Dosing, 106.8, kg, 06/15/21 8:58:00 EST, Weight Dosing Follow-up With When Contact Information MANJIT WILSON, OCTAVIO Fernandez, MED Within 2 to 4 weeks [address] [place] [address] Additional Instructions: Patient Education Colon [...] Metastatic cancer: Mother and Father. Normal [facility] Comment on above: Result Comment: Elec [...] 01/26/2005 Document Revised: 08/17/2018 Document Reviewed: 08/17/2018 [employer] Patient Education ? 2020 [employer] [facility] Encounters Encounter Date Encounter Type Care Provider Facility Start: 05-25-2024 ambulatory [facility] Start: 03-07-2024 ambulatory [facility] Start: 02-28-2024 ambulatory [facility] Start: 01-06-2024 End: 01-06-2024 ambulatory [facility] Start: 11-07-2023 ambulatory BERTA LOMAX [facility] Start: 06-17-2023 End: 06-17-2023 ambulatory [facility] Start: 06-28-2022 End: 06-29-[address] [...] Comment on above: Performed By: #### P [facility] ####[facility] [id number] [place], [place] [address]VoColeman Tiny Miranda Payers Date Payer Category Payer Medicare [id number] 1961 Unknown [id number] 1955 Unknown [id number] 2.16.84 [id number] 1955 Unknown [id number] 2.16.84 [id number] 1955 Unknown [id number] 2.16.84 [id number] 1955 Unknown [id number] 2.16.84 [id number] 1955 Unknown [id number] 2.16.84 [id number] Progress note 01-06-2024 Note Date & Type Note Facility 01-06-2024 Note [facility] Subjective Jose Todd is a 68 [...] General: No focal (more content not included)... [facility] Progress note 06-17-2023 Note Date & Type Note Facility 06-17-2023 Note [facility] Subjective Jose Todd is a 68 [...] tenderness. Musculoskeletal: Ge (more content not included)... [facility] History and physical note 07-20-2021 Note Date & Type Note Facility 07-20-2021 Note [id number]#1.00CD:127 [facility] Summary Purpose Family History No Family [...] content) DATE CREATED AUTHOR 09/09/2021 Jose Delarosa [facility] DATE CREATED AUTHOR AUTHOR'S ORGANIZ ATION 09/24/2022 Eliot Delgado [facility] DATE CREATED AUTHOR AUTHOR'S ORGANIZ ATION 05/30/2024 [facility] FOR RECORDS PERTAINING TO PATIENTS WHO [...] BE BASED ON THE PRIMARY CLINICAL RECORDS. [employer] provides no warranty or guarantee of the accuracy or completeness of information in this document.
== END 2024-08-31 09:00 | disposition home or self-care (01) ==
LOC: MRI 08:59
PROVIDERS: PCP Family Medicine; Visit Provider Family Medicine
DX: M25.551 Pain in right hip (principal); M94.251 Chondromalacia, right hip
CPT/HCPCS: 73721